=== PATIENT | female | born 1955 | race Caucasian/White ===

== ENCOUNTER 2016-10-31 14:15 | Inpatient (IN) ==
[2016-10-31] MEDS ORDERED: KLOR-CON PO PRN (15:27)
[2016-10-31] MEDS ORDERED: ALBUTEROL NEB INH PRN (15:27)
[2016-10-31] MEDS: DUONEB (A & A) INH SCH ×3 (15:34→23:28)
[2016-10-31 15:52] LABS: ALLEN TEST NO; BE 4.9 mmoll (-3.0-3.0); BLOOD TYPE ARTERIAL; DRAW SITE L BRACHIAL; METHB 1.6 % (0.0-1.5); O2(CT) 15.3 mL/dL (15.0-23.0); PCO2(98.6) 48 mmHg (35-45); PO2(98.6) 75 mmHg (60-100); SAMPLE BLOOD; SAO2 97.3 % (95.0-100.0); THB 11.6 g/dL (11.5-17.4); pH(98.6) 7.41 (7.35-7.45)
[2016-10-31 15:53] LABS: MODALITY CANNULA
--- NOTE | 2016-10-31 16:03 | Diag Imaging Result Document ---
PROCEDURE NAME: CHEST-PORTABLE - 10/31/2016 AP PORTABLE CHEST: TIME: 1520 hours. FINDINGS: There is interstitial pulmonary edema. Compared to 09/17/2016 this is worse. The inspiration is less optimal however. IMPRESSION: 1. Poor inspiration. 2. Pulmonary edema.
[2016-10-31 16:08] LABS: HEMATOCRIT 25.4 % (37.0-47.0); HEMOGLOBIN 8.2 g/dL (12.0-16.0); MCH 24.1 PG (27-31); MCHC 32.3 g/dL (33-37); MCV 74.7 FL (81-99); MPV 10.3 FL (7.4-10.4); RBC 3.4 XMIL (4.2-5.4)
[2016-10-31] MEDS ORDERED: VANCOMYCIN IV PER PHARMACY MISC SCH (16:15)
[2016-10-31 16:19] LABS: AGAP 12; ALBUMIN 3.9 g/dL (3.5-5.0); ALKALINE PHOSPHATASE 150 U/L (32-104); BUN 7 mg/dL (8-22); CALCIUM 8.4 mg/dL (8.8-10.2); CHLORIDE 97 mmol/L (98-107); CK PROFILE 109 U/L (24-173); COSMO 273; GOT 16 U/L (10-30); GPT 12 U/L (10-36); POTASSIUM 3.3 mmol/L (3.5-5.1); SODIUM 137 mmol/L (136-145); TCO2 28 mmol/L (25-35); TOTAL BILIRUBIN 0.43 mg/dL (0.20-1.00)
[2016-10-31] MEDS: PERCOCET-10 PO PRN (17:00)
[2016-10-31] MEDS ORDERED: NS + KCL 20 MEQ 1,000 ML IV SCH (17:00)
[2016-10-31] MEDS ORDERED: LEVAQUIN 750 MG/D5W 150 ML IV SCH (17:00)
[2016-10-31] MEDS: NEURONTIN PO SCH ×2 (17:01→20:46)
[2016-10-31] MEDS: LOVENOX SUBQ SCH (17:01)
--- NOTE | 2016-10-31 17:14 | Diag Imaging Result Document ---
PROCEDURE NAME: HEAD W/O CONTRAST - 10/31/2016 CT OF THE HEAD WITHOUT CONTRAST: FINDINGS: There is the appearance of edema of the sulci of the right parietal convexity, which was not the case on 11/21/2014. There is decreased attenuation of the posterior left hemisphere, which was not present previously. Same may be true on the right side. There is a history of myelogram two days ago. No evidence of bleed or mass effect is otherwise present. There is some fluid in the right mastoid air cells, which was not the case on the previous study. IMPRESSION: Intracerebral CSF contrast simulating cerebral edema. The findings were discussed with Dr. Gomez by telephone at 1658 hours. [facility]
[2016-10-31] MEDS ORDERED: LASIX IV ONE (17:41)
[2016-10-31] MEDS ORDERED: KLOR-CON PO ONE (17:45)
[2016-10-31 18:09] LABS: URINE CULTURE NEEDED? NO; URINE MICRO REVIEW NEEDED? NO; URINE SOURCE CATH
[2016-10-31 18:13] LABS: BILIRUBIN URINE NEGATIVE (NEGATIVE); BLOOD URINE NEGATIVE (NEGATIVE); COLOR YELLOW; GLUCOSE URINE NEGATIVE (NEGATIVE); LEUKOCYTES URINE NEGATIVE (NEGATIVE); NITRITE URINE NEGATIVE (NEGATIVE); PH URINE 5.5; PROTEIN URINE NEGATIVE (NEGATIVE); SP GRAVITY URINE 1.008; TURBIDITY URINE CLEAR (CLEAR); UROBILINOGEN URINE NORMAL (NORMAL)
[2016-10-31 18:14] LABS: UR EPITHELIAL CELLS <10 /HPF (<10); URINE BACTERIA NEGATIVE /HPF; URINE RBC <10 /HPF (<10); URINE WBC <10 /HPF (<10)
--- NOTE | 2016-10-31 18:45 | HISTORY AND PHYSICAL ---
CHIEF COMPLAINT: Altered mental status. HISTORY OF PRESENT ILLNESS: Ms Colin, 61-year-old white female patient, not doing well since yesterday. The patient had increasing confusion, disorientation. The patient was doing fairly well on Thursday. Patient went for myelogram. Patient tolerated procedure well. The patient came back home urinating well but yesterday patient was sleeping more. She did have increasing confusion, some disorientation. According to patient did have increasing cough, chest congestion. She does have underlying COPD. The patient was brought to my office for evaluation. The patient was not fully oriented to time, place and person. I evaluated the patient. She was more hypoxemic. Her O2 saturation was staying around 89%. With her change in mental status, increasing cough, chest congestion, shortness of breath, I decided to admit the patient for further care. The patient denied any major headache. No neck stiffness. Denied any nausea or vomiting. Does have increasing cough and chest congestion. No typical chest pain, palpitation, orthopnea or PND. Patient does have significant chronic constipation and vague abdominal pain. No diarrhea, blood, or mucus in the stool. Denied any dysuria or hematuria. The patient is very vague and poor historian. No vaginal discharge. Patient does have chronic back pain and neck pain. The patient is going to [facility] and she is on high dose of pain medication. The patient does have history of major depression and anxiety. She is seeing psychiatrist on high dose of Zoloft and Xanax. No history suggestive of accidental or intentional drug overdose. Her manages her medication. No further history available at this time. There was question about fall at home but patient denied any major head injury or loss of consciousness. ALLERGIES: CODEINE, FENTANYL AND DEMEROL. PAST MEDICAL HISTORY: COPD, chronic respiratory failure, hypothyroidism, hypertension, chronic constipation, hernia of the abdominal wall, chronic pain. Patient had pain pump placed but it is not functioning. 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 PERSONAL HISTORY: . Lives with the . Quit smoking recently. Denied alcohol or substance abuse. REVIEW OF SYSTEMS: As per HPI. Otherwise unobtainable. FAMILY HISTORY: Significant for mother of congestive heart failure. Otherwise noncontributory. REVIEW OF SYSTEMS: As per HPI. HOME MEDICATIONS: Include patient is on Synthroid, pain medication morphine, Xanax, Zoloft, Lipitor, Neurontin, hydroxyzine, Linzess, Latuda, Robaxin, Percocet, potassium, Advair. PHYSICAL EXAMINATION: GENERAL: Middle-aged white female patient, morbidly obese, in mild distress. VITAL SIGNS: Blood pressure 111/67, pulse 98, respiration 15, temperature 99 degrees. SKIN: Normal turgor. No rash or petechiae. HEENT: Head atraumatic, normocephalic. Blum conjunctivae. Anicteric sclerae. Extraocular muscle movement normal. Fundus cannot be penetrated. Good oral hygiene. No tonsillopharyngeal congestion or exudate. I cannot visualize posterior pharynx. Ears and nose benign. NECK: Supple. It is obese. Difficult to comment about lymphadenopathy or thyromegaly. LUNGS: Bibasilar crepitation, bilateral expiratory wheezing. CARDIOVASCULAR: S1 and S2 heard. No gallop or thrill. ABDOMEN: Soft, globular. Bowel sounds present. Patient does have hernia of the abdominal wall on the right upper quadrant. EXTREMITIES: No cyanosis, clubbing. No acute DVT. COFFEE HOST: Alert, awake, able to move all 4 limbs but patient does have some confusion and disorientation. DATA: Hemoglobin 8.2, hematocrit 25.4, platelet count 178,000, WBC count 9.42. D-dimer 0.23. Blood gas pH 7.41, pCO2 48, PO2 was 75. The electrolytes did reveal hypokalemia. ProBNP was 2748. Rest fairly within normal limits. CONSIDERATION: 1. Altered mental status. 2. Chronic obstructive pulmonary disease exacerbation. 3. Chronic respiratory failure. 4. Possibility of urinary tract infection cannot be ruled out. 5. Gastritis and reflux disease. 6. Hypothyroidism. 7. Chronic constipation. 8. Hyperlipidemia. PLAN: Admit patient. IV Lasix, IV steroid, pulmonary toilet, bronchodilator care. Potassium supplement. Broad-spectrum antibiotics. Septic workup. Overall plan discussed with patient and family. They are in agreement.
[2016-10-31] MEDS: ADVAIR 250/50 DISKUS INH SCH (19:36)
[2016-10-31] MEDS: LIPITOR PO SCH (20:45)
[2016-10-31] MEDS: MS CONTIN PO SCH (20:45)
[2016-10-31] MEDS: XANAX PO SCH (20:46)
[2016-10-31] MEDS: DOXYCYCLINE PO SCH (20:46)
[2016-10-31] MEDS: LATUDA PO SCH (20:46)
[2016-10-31] MEDS: HYDROXYZINE PO SCH (20:47)
[2016-10-31] MEDS: ROBAXIN PO SCH (20:47)
[2016-10-31] MEDS ORDERED: MORPHINE SULFATE PO SCH (21:00)
[2016-10-31] MEDS ORDERED: MS CONTIN PO SCH ×2 (21:00)
[2016-10-31] MEDS ORDERED: NALTREXONE PO SCH (21:00)
[2016-10-31] MEDS: SOLU-MEDROL IV SCH (22:05)
[2016-10-31] MEDS: SODIUM CHLORIDE 0.9% INJ SCH (22:06)
[2016-10-31] MEDS: ZOSYN 3.375 GM/NS 50 ML IV SCH (22:06)
[2016-10-31] MEDS: PROTONIX IV SCH (22:06)
[2016-10-31] MEDS: NS + KCL 20 MEQ 1,000 ML IV SCH (22:06)
--- NOTE | 2016-10-31 22:12 | OPERATIVE NOTE ---
PROCEDURE DATE: 10/31/2016 PROCEDURE PERFORMED: Right internal jugular vein central venous line placement under ultrasound guidance. SURGEON: Bernard Larkin MD. PREOPERATIVE DIAGNOSIS: Poor venous access. POSTOP DIAGNOSIS: Poor venous access. INDICATION: This is a 61-year-old admitted to the intensive care unit with poor venous access. He is in need of IV fluids and antibiotics and other medications. DESCRIPTION OF PROCEDURE: The patient placed in Trendelenburg position. The right side of the neck and upper anterior chest were prepped and draped in sterile fashion. We put a sterile sheath on the ultrasound, imaged the right internal jugular vein, identified it. It was compressible. We anesthetized the skin, made a small stab incision and accessed the internal jugular vein without difficulty. We then passed the guidewire without difficulty into the superior vena cava. We dilated the tract and then passed the triple-lumen catheter to 19 cm to the extent that it would go. We were able to aspirate blood from each lumen. We then infused saline in each lumen. We secured the flange to the skin with silk contained within the tray. A Biostep patch was placed at the exit site and a sterile OpSite was applied. She tolerated it well. Chest x-ray was ordered. MTDD
[2016-10-31] MEDS: VANCOMYCIN 2 GM in NS 500 ML IV SCH (22:49)
[2016-11-01] MEDS: ZOSYN 3.375 GM/NS 50 ML IV SCH ×4 (00:45→17:05)
[2016-11-01] MEDS: SOLU-MEDROL IV SCH ×3 (01:36→16:32)
[2016-11-01] MEDS: DUONEB (A & A) INH SCH ×6 (03:37→23:15)
[2016-11-01 05:56] LABS: HEMATOCRIT 24.6 % (37.0-47.0); HEMOGLOBIN 7.8 g/dL (12.0-16.0); MCH 24.2 PG (27-31); MCHC 31.7 g/dL (33-37); MCV 76.4 FL (81-99); MPV 11.4 FL (7.4-10.4); RBC 3.22 XMIL (4.2-5.4)
[2016-11-01 06:14] LABS: AGAP 12; ALBUMIN 3.7 g/dL (3.5-5.0); ALKALINE PHOSPHATASE 137 U/L (32-104); BUN 7 mg/dL (8-22); CALCIUM 8.5 mg/dL (8.8-10.2); CHLORIDE 101 mmol/L (98-107); COSMO 282; GOT 16 U/L (10-30); GPT 10 U/L (10-36); POTASSIUM 3.3 mmol/L (3.5-5.1); SODIUM 141 mmol/L (136-145); TCO2 28 mmol/L (25-35); TOTAL BILIRUBIN 0.44 mg/dL (0.20-1.00); TOTAL PROTEIN 6.4 g/dL (6.3-8.3)
[2016-11-01] MEDS: ADVAIR 250/50 DISKUS INH SCH ×2 (07:37→20:16)
[2016-11-01] MEDS: DOXYCYCLINE PO SCH (08:54)
[2016-11-01] MEDS: MOVANTIK PO SCH (08:54)
[2016-11-01] MEDS: VITAMIN D PO SCH (08:54)
[2016-11-01] MEDS: LINZESS PO SCH (08:54)
[2016-11-01] MEDS: HYDROXYZINE PO SCH ×2 (08:54→20:06)
[2016-11-01] MEDS: NEURONTIN PO SCH ×4 (08:55→20:08)
[2016-11-01] MEDS: XANAX PO SCH ×2 (08:55→20:06)
[2016-11-01] MEDS: ZOLOFT PO SCH (08:55)
[2016-11-01] MEDS: SYNTHROID PO SCH (08:55)
[2016-11-01] MEDS: ROBAXIN PO SCH ×2 (08:55→20:05)
[2016-11-01] MEDS: MS CONTIN PO SCH ×2 (08:56→20:08)
[2016-11-01] MEDS ORDERED: LASIX PO SCH (09:00)
[2016-11-01] MEDS ORDERED: PRILOSEC PO SCH (09:00)
[2016-11-01] MEDS ORDERED: NON-FORMULARY MED (Omeprazole [Prilosec] 40 MG) PO SCH (09:00)
[2016-11-01] MEDS ORDERED: KLOR-CON PO PRN (09:00)
[2016-11-01] MEDS ORDERED: BLISTEX MEDICATED BERRY LIP BALM TOP PRN (10:20)
--- NOTE | 2016-11-01 10:25 | PROGRESS NOTE ---
DATE: 11/01/2016 SUBJECTIVE: Ms. Colin is doing fair. Her mental status seems to be getting better, more clear. Patient vomited once this morning. No high-grade fever or chills. The patient does have cough and chest congestion. The patient does have chronic constipation, does have chronic pain. The patient had central line placed yesterday because IV access was a major issue. No dysuria or hematuria. The patient had López catheter. Tolerating antibiotics well. OBJECTIVE: Vital signs: Reviewed. Neck: Supple. No JVD. Lungs: Bibasilar crepitations, occasional wheezing. CVS: S1 and S2 heard. Abdomen: Soft, globular. Bowel sounds present. BINGO CLERK: Alert, awake able to move all 4 limbs. CONSIDERATIONS: 1. Chronic respiratory failure. 2. COPD exacerbation. 3. Vomiting, could be due to gastritis. I thing doxycycline could be a contributing factor. I am going to hold her doxycycline. 4. Anemia, most likely of chronic disease. I am going to check appropriate lab and stool workup and transfuse her 1 unit of packed RBC. 5. Hypothyroidism. Will check. LABORATORY AND X-RAY DATA: Lab data done today: Hemoglobin 7.8 and hematocrit 24.6. Considering her compromised cardiopulmonary status, she will benefit from blood transfusion. Potassium was 3.3. I am going to supplement potassium. Her chest x-ray results reviewed. I am going to repeat chest x-ray in the morning.
[2016-11-01 10:27] LABS: RETIC% 1.2 % (0.8-2.1); RETIC-HE 21.7 PG (28.2-36.6)
[2016-11-01 10:51] LABS: IRON SATURATION 4 %; TIBC 295 ug/dL; TOTAL IRON 11 ug/dL (49-151); UNBOUND IRON 284 ug/dL (112-346)
--- NOTE | 2016-11-01 11:13 | Diag Imaging Result Document ---
PROCEDURE NAME: CHEST-PORTABLE - 10/31/2016 PORTABLE CHEST: TIME: 1900 hours. FINDINGS: There is a right internal jugular central venous catheter with its tip in the right atrium. There is patchy alveolar opacity in the lung bases. The upper lung zones are clearer than on 10/31/2016. IMPRESSION: Slightly improved pulmonary edema.
[2016-11-01] MEDS: PERCOCET-10 PO PRN ×2 (11:41→15:42)
[2016-11-01] MEDS ORDERED: NS 250 ML ONE (11:48)
[2016-11-01] MEDS: LOVENOX SUBQ SCH (16:32)
[2016-11-01] MEDS: PROTONIX IV SCH (16:33)
[2016-11-01] MEDS: SODIUM CHLORIDE 0.9% INJ SCH (16:33)
[2016-11-01] MEDS ORDERED: KLOR-CON PO ONE (17:30)
[2016-11-01] MEDS ORDERED: LASIX IV ONE (17:31)
[2016-11-01] MEDS: LATUDA PO SCH (20:11)
[2016-11-01] MEDS: LIPITOR PO SCH (20:12)
[2016-11-01] MEDS: VANCOMYCIN 2 GM in NS 500 ML IV SCH (22:22)
[2016-11-02] MEDS: PERCOCET-10 PO PRN ×3 (00:08→19:45)
[2016-11-02] MEDS: NS + KCL 20 MEQ 1,000 ML IV SCH ×2 (00:10→23:27)
[2016-11-02] MEDS: ZOSYN 3.375 GM/NS 50 ML IV SCH ×4 (00:11→17:12)
[2016-11-02] MEDS: SOLU-MEDROL IV SCH ×3 (00:14→17:19)
[2016-11-02] MEDS: DUONEB (A & A) INH SCH ×6 (03:47→23:21)
[2016-11-02 06:15] LABS: HEMATOCRIT 25.9 % (37.0-47.0); HEMOGLOBIN 8.4 g/dL (12.0-16.0); IMM GRAN# 0.05 X1000 (0.0-0.04); IMM GRAN% 0.5 % (0.0-0.5); LYMPH# 0.47 X1000 (1.2-3.4); LYMPH% 4.7 % (20.5-51.1); MANUAL DIFF NEEDED? YES; MCH 24.5 PG (27-31); MCHC 32.4 g/dL (33-37); MCV 75.5 FL (81-99); MONO# 0.65 X1000 (0.11-0.59); MONO% 6.5 % (1.7-9.3); MPV 11.3 FL (7.4-10.4); NEUT% 88.3 % (42.2-75.2); PLT 207 X1000 (130-400); RBC 3.43 XMIL (4.2-5.4)
[2016-11-02 07:04] LABS: AGAP 15; ALBUMIN 3.5 g/dL (3.5-5.0); ALKALINE PHOSPHATASE 118 U/L (32-104); BUN 12 mg/dL (8-22); CALCIUM 8.3 mg/dL (8.8-10.2); CHLORIDE 100 mmol/L (98-107); COSMO 284; GOT 24 U/L (10-30); GPT 10 U/L (10-36); POTASSIUM 3.3 mmol/L (3.5-5.1); SODIUM 141 mmol/L (136-145); TCO2 26 mmol/L (25-35); TOTAL BILIRUBIN 0.41 mg/dL (0.20-1.00); TOTAL PROTEIN 6.2 g/dL (6.3-8.3)
[2016-11-02] MEDS: ADVAIR 250/50 DISKUS INH SCH ×2 (07:48→19:45)
--- NOTE | 2016-11-02 08:02 | Diag Imaging Result Document ---
PROCEDURE NAME: CHEST-PORTABLE - 11/02/2016 AP PORTABLE CHEST AT 0500 HOURS: COMPARISON: Compared to 10/31/2016, there is increased alveolar opacification of the right upper lobe. IMPRESSION: Pulmonary edema plus/minus pneumonia.
[2016-11-02] MEDS: LINZESS PO SCH (08:03)
[2016-11-02] MEDS: NEURONTIN PO SCH ×4 (08:03→21:29)
[2016-11-02] MEDS: VITAMIN D PO SCH (08:04)
[2016-11-02] MEDS: HYDROXYZINE PO SCH ×2 (08:04→21:27)
[2016-11-02] MEDS: ZOLOFT PO SCH (08:04)
[2016-11-02] MEDS: ROBAXIN PO SCH ×2 (08:05→21:28)
[2016-11-02] MEDS: MOVANTIK PO SCH (08:06)
[2016-11-02] MEDS: XANAX PO SCH ×3 (08:06→23:26)
[2016-11-02] MEDS: MS CONTIN PO SCH ×2 (08:06→21:29)
[2016-11-02 08:25] LABS: BANDS 4 % (0-1); LYMPHS 10 % (21-51); MONO 2 % (1-9)
[2016-11-02] MEDS ORDERED: ZOFRAN IV PRN (08:52)
[2016-11-02] MEDS ORDERED: LASIX IV ONE (11:06)
[2016-11-02] MEDS: SYNTHROID PO SCH (12:09)
[2016-11-02] MEDS: POTASSIUM CHLORIDE 20 MEQ/SWI 100 ML IV SCH ×2 (12:10→17:12)
[2016-11-02] MEDS: FOLIC ACID PO SCH (12:10)
[2016-11-02] MEDS ORDERED: NS 1,000 ML ONE (12:16)
--- NOTE | 2016-11-02 14:03 | PROGRESS NOTE ---
DATE: 11/02/2016 SUBJECTIVELY: Ms Colin is doing fair. The patient does have chest congestion and cough. No high- grade fever or chills. Tolerating oxygen well. Mental status improving. At times nausea, no vomiting. The patient does have bowel movement. Sputum grew Klebsiella. Blood culture was no growth. Her pain is under control. OBJECTIVE: Vital Signs: Noted. Neck: Supple. No JVD. The patient does have central line. Lungs: Bibasilar crepitation. Occasional wheezing. CVS: S1 and S2 heard. Abdomen: Soft, globular. Bowel sounds present. Patient does have hernia of the abdominal wall. Extremities: No cyanosis, clubbing. No acute DVT. ROASTER SUPERVISOR: Alert, awake, oriented. Mental status much improved. Able to move all 4 limbs. LAB DATA: Done today, hemoglobin 8.4, hematocrit 25.9, WBC count 10.07, platelet count 207,000. I did an anemia workup. Reticulocyte count 1.2, ferritin level was 118, folate level was 4.9, TIBC 284. I am going to supplement folic acid. Serum iron level was low. The patient does have iron-deficiency anemia. The patient claims her last colonoscopy was many years ago. Considering her compromised cardiopulmonary status, she will be benefited from 1 more unit of packed RBC. PROBLEMS: Include. 1. Chronic respiratory failure. 2. Chronic obstructive pulmonary disease exacerbation. 3. Iron-deficiency anemia. 4. Hypokalemia. I am going to check magnesium level. Supplement potassium. 5. Chronic pain. 6. Gastritis. 7. Hypothyroidism. 8. Folate deficiency. PLAN: Overall plan discussed with the patient. She is in agreement. Will transfer patient to telemetry bed. Fall precaution.
[2016-11-02] MEDS: PROTONIX IV SCH (17:12)
[2016-11-02] MEDS: SODIUM CHLORIDE 0.9% INJ SCH (17:12)
[2016-11-02] MEDS: LOVENOX SUBQ SCH (17:19)
[2016-11-02] MEDS: LATUDA PO SCH (21:28)
[2016-11-02] MEDS: LIPITOR PO SCH (21:28)
[2016-11-02] MEDS: VANCOMYCIN 2 GM in NS 500 ML IV SCH (23:26)
[2016-11-03] MEDS: ZOSYN 3.375 GM/NS 50 ML IV SCH ×4 (00:49→17:02)
[2016-11-03] MEDS: SOLU-MEDROL IV SCH ×3 (00:49→17:00)
[2016-11-03] MEDS: NS + KCL 20 MEQ 1,000 ML IV SCH ×2 (00:51→22:42)
[2016-11-03] MEDS: DUONEB (A & A) INH SCH ×6 (05:42→23:36)
[2016-11-03 06:39] LABS: MANUAL DIFF NEEDED? NO
[2016-11-03 07:10] LABS: ALBUMIN 3.5 g/dL (3.5-5.0); CALCIUM 8.4 mg/dL (8.8-10.2); TOTAL BILIRUBIN 0.24 mg/dL (0.20-1.00); TOTAL PROTEIN 6.1 g/dL (6.3-8.3)
[2016-11-03 07:15] LABS: BASO% 0.1 % (0.0-0.8); HEMATOCRIT 30.2 % (37.0-47.0); HEMOGLOBIN 9.5 g/dL (12.0-16.0); IMM GRAN# 0.12 X1000 (0.0-0.04); IMM GRAN% 1.3 % (0.0-0.5); LYMPH# 0.61 X1000 (1.2-3.4); LYMPH% 6.5 % (20.5-51.1); MCH 24.5 PG (27-31); MCHC 31.5 g/dL (33-37); MCV 77.8 FL (81-99); MONO# 0.75 X1000 (0.11-0.59); MPV 11.5 FL (7.4-10.4); NEUT% 84.1 % (42.2-75.2); PLT 201 X1000 (130-400); RBC 3.88 XMIL (4.2-5.4)
[2016-11-03] MEDS: ADVAIR 250/50 DISKUS INH SCH ×2 (07:32→20:08)
--- NOTE | 2016-11-03 07:40 | EKG Report ---
Test Performed on : 10/31/2016 4:58:10 PM Test Reason : sob Blood Pressure : / mmHG Vent. Rate : 099 BPM Atrial Rate : 099 BPM P-R Int : 150 ms QRS Dur : 086 ms QT Int : 338 ms P-R-T Axes : 032 -21 023 degrees QTc Int : 433 ms Normal sinus rhythm. Possible Anterior infarct , age undetermined Abnormal ECG When compared with ECG of 03-APR-2016 01:36, Borderline criteria for Anterior infarct are now present Confirmed by Vinay Moreau MD ([id number]) on 11/04/2016 8:35:01 AM
[2016-11-03] MEDS: ROBAXIN PO SCH ×2 (09:04→21:04)
[2016-11-03] MEDS: LINZESS PO SCH (09:05)
[2016-11-03] MEDS: MOVANTIK PO SCH (09:05)
[2016-11-03] MEDS: SYNTHROID PO SCH (09:06)
[2016-11-03] MEDS: XANAX PO SCH ×3 (09:06→22:39)
[2016-11-03] MEDS: VITAMIN D PO SCH (09:06)
[2016-11-03] MEDS: ZOLOFT PO SCH (09:06)
[2016-11-03] MEDS: MS CONTIN PO SCH ×2 (09:07→21:03)
[2016-11-03] MEDS: NEURONTIN PO SCH ×4 (09:07→21:04)
[2016-11-03] MEDS: FOLIC ACID PO SCH (09:07)
[2016-11-03] MEDS: HYDROXYZINE PO SCH ×2 (09:08→21:04)
--- NOTE | 2016-11-03 11:20 | PROGRESS NOTE ---
DATE: 11/03/2016 SUBJECTIVE: Ms. Colin states she is feeling better. She has Klebsiella isolated from the sputum. Has right upper lobe pneumonia. Actually, the x-ray showed that it was a little worse. She is on IV vancomycin and Zosyn. OBJECTIVE: Vital Signs: Her vital signs are stable. Lungs: Lungs sound about the same, probably she does have some significant congestion in the right upper lobe. We will continue with the current management on her. She herself is feeling better. We will ask physical therapy to help her some. -4
[2016-11-03] MEDS: PERCOCET-10 PO PRN ×2 (13:09→22:48)
[2016-11-03] MEDS: PROTONIX IV SCH (17:00)
[2016-11-03] MEDS: LOVENOX SUBQ SCH (17:00)
[2016-11-03] MEDS: SODIUM CHLORIDE 0.9% INJ SCH (17:00)
[2016-11-03] MEDS: LIPITOR PO SCH (21:04)
[2016-11-03] MEDS: LATUDA PO SCH (21:05)
[2016-11-03] MEDS: VANCOMYCIN 2 GM in NS 500 ML IV SCH (22:39)
[2016-11-04] MEDS: SOLU-MEDROL IV SCH (01:26)
[2016-11-04] MEDS: ZOSYN 3.375 GM/NS 50 ML IV SCH ×4 (03:36→21:16)
[2016-11-04] MEDS: DUONEB (A & A) INH SCH ×6 (03:58→23:04)
[2016-11-04] MEDS: ADVAIR 250/50 DISKUS INH SCH ×2 (07:23→19:29)
--- NOTE | 2016-11-04 07:23 | PROGRESS NOTE ---
DATE: 11/04/2016 SUBJECTIVE: Ms. Colin is feeling better. She still has cough and chest congestion. No high- grade fever or chills. Shortness of breath better. Mental status improved. Denied nausea and vomiting, improving. The patient received 2 units of packed RBC. The patient claims she had endoscopy done about 3 years ago. She does not remember the results. We are going to get those results. OBJECTIVE: Vital signs: Reviewed. Patient is afebrile. Neck: Supple. Lungs: Bibasilar crepitations, occasional wheezing. CVS: S1 and S2 heard. Abdomen: Soft, globular. Bowel sounds present. WOOD CAR BUILDER: The patient does have hernia of the abdominal wall. Extremities: No cyanosis, clubbing. No acute DVT. WOOD CAR BUILDER: Alert, awake able to move all 4 limbs. CONSIDERATION: 1. COPD exacerbation. 2. Right upper lobe pneumonia due to Klebsiella. 3. Hypothyroidism. 4. Chronic blood loss anemia. 5. Hyperlipidemia. 6. Chronic constipation. 7. Iron-deficiency anemia. PLAN: I am going to check appropriate labs. The patient does have chronic constipation. I do not think she will tolerate p.o. iron well. We will get Hematology consult for IV iron treatment. Change her Solu-Medrol to p.o. prednisone. Continue physical therapy. Will plan to discharge her tomorrow. Overall plan discussed with the patient and she is in agreement.
[2016-11-04] MEDS: VITAMIN D PO SCH ×2 (07:51→08:01)
[2016-11-04] MEDS: MS CONTIN PO SCH ×3 (07:51→21:15)
[2016-11-04] MEDS: MOVANTIK PO SCH ×2 (07:51→08:01)
[2016-11-04] MEDS: ZOLOFT PO SCH ×2 (07:52→08:01)
[2016-11-04] MEDS: ROBAXIN PO SCH ×3 (07:52→21:15)
[2016-11-04] MEDS: LINZESS PO SCH ×2 (07:52→08:00)
[2016-11-04] MEDS: XANAX PO SCH ×4 (07:52→23:42)
[2016-11-04] MEDS: FOLIC ACID PO SCH ×2 (07:52→08:00)
[2016-11-04] MEDS: HYDROXYZINE PO SCH ×3 (07:53→21:15)
[2016-11-04] MEDS: NEURONTIN PO SCH ×5 (07:53→21:16)
[2016-11-04] MEDS: SYNTHROID PO SCH ×2 (07:53→08:01)
[2016-11-04] MEDS: LASIX PO SCH ×2 (07:56→08:00)
[2016-11-04] MEDS: PREDNISONE PO SCH ×2 (07:56→08:01)
[2016-11-04] MEDS: PERCOCET-10 PO PRN ×3 (13:00→23:49)
--- NOTE | 2016-11-04 15:28 | CONSULTATION ---
DATE OF CONSULTATION: 11/04/2016 REASON FOR CONSULTATION: Consultation is for anemia. CONSULTATION REQUESTED BY: Samson Gomez MD. HISTORY OF PRESENT ILLNESS: Ms. Colin is a pleasant, 61-year-old, female, who initially presented with altered mental status. She was found to have COPD exacerbation and possible sepsis. She was admitted to the hospital for further evaluation and treatment. During her hospital stay, the patient has required 2 units of packed red blood cells. We are here now for followup regarding her anemia. She does appear to be iron deficient and has occult blood that is positive stool. The patient feels well at this time. She has previously been on oral iron, but is unable to tolerate secondary to significant constipation. Her COPD exacerbation is much better at this point. PAST MEDICAL HISTORY: 1. COPD. 2. Chronic respiratory failure. 3. Hypothyroidism. 4. Hypertension. 5. GERD. 6. Chronic pain. 7. Fibromyalgia. 8. Neuropathy. PAST SURGICAL HISTORY: 1. Traumatic amputation of left great toe. 2. Cholecystectomy. 3. Left arm surgery. 4. Hysterectomy. 5. Appendectomy. 6. Back surgery. 7. Previous pain pump, implanted with subsequent rupture of the pain pump and is no longer functional. SOCIAL HISTORY: The patient is and lives with her . She denies any alcohol or drugs or current tobacco use. REVIEW OF SYSTEMS: As per HPI. All else is negative and noncontributory. PHYSICAL EXAMINATION: Vital Signs: Temperature is 98.2, heart rate 82, respirations 17, blood pressure 151/78, O2 saturation 93% on 2 L nasal cannula. HEENT: Head normocephalic, atraumatic. Eyes: Pupils equal, round, reactive. Ears, nose, throat, neck and mouth: Oral mucosa appears to be normal. She does have some on both sides of her mouth. Trachea is midline. Gross auditory acuity is intact. Cardiovascular: S1-S2 heard without murmurs, gallops, rubs appreciated. Regular rate and rhythm. Respiratory: Essentially clear to auscultation bilaterally. No wheezing. Coarse breath sounds bilaterally. Gastrointestinal: Abdomen is soft and nondistended. Positive bowel sounds. Obese. 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 She has no other obvious bony abnormalities. Extremities: Bilateral lower extremities are without edema. Neurologic: Patient is alert and oriented x3. There are no focal motor deficits. She does report having right foot drop, however, she was not evaluated in regards to her gait. LABS AND STUDIES: From 11/03/2016. White blood cells 9.37, hemoglobin 9.5, hematocrit 30.2, platelets 201. Sodium 142, potassium 4.0, chloride 103, CO2 of 25, BUN 19, creatinine 1.1. Glucose 124, alkaline phosphatase is 107. Iron 11, saturation percent is 4. Ferritin is 118. Folate is 4.9, occult blood in stool is positive. Reticulocytes 21.7. ASSESSMENT AND PLAN: 1. Anemia. Status post 2 units of packed red blood cells. She has now been started on folic acid, which will continue. Check a myeloma panel as well as vitamin B12. Hemoccult stool is positive, so it may be reasonable for GI workup if it has not been done recently. The patient can follow up with us outpatient and will continue to give her IV iron as needed. With 2 units of packed red blood cells, the patient has received about 500 mg of iron. 2. Chronic obstructive pulmonary disease exacerbation. Better. Continue current management. 3. Chronic pain. Will control with current medications. 4. Anxiety and depression. Currently well controlled. Thank you for this consult and allowing us to participate in Ms. Colin's care while she is at [facility]. We will continue following along with you and adjust plan per hospital course. Dictated by RICKIE Black for Poly Pang MD
[2016-11-04] MEDS: LOVENOX SUBQ SCH (16:04)
[2016-11-04] MEDS: PROTONIX IV SCH (16:04)
[2016-11-04] MEDS: SODIUM CHLORIDE 0.9% INJ SCH (16:04)
[2016-11-04] MEDS: LATUDA PO SCH (21:16)
[2016-11-04] MEDS: LIPITOR PO SCH (21:16)
[2016-11-04] MEDS: VANCOMYCIN 2 GM in NS 500 ML IV SCH (23:43)
[2016-11-05] MEDS: ZOSYN 3.375 GM/NS 50 ML IV SCH ×4 (02:53→20:10)
[2016-11-05] MEDS: DUONEB (A & A) INH SCH ×6 (03:26→23:51)
[2016-11-05] MEDS: PERCOCET-10 PO PRN ×3 (05:15→21:41)
[2016-11-05 06:22] LABS: BASO% 0.4 % (0.0-0.8); EOS# 0.18 X1000 (0.0-0.7); EOS% 1.6 % (0.0-10.0); HEMATOCRIT 29.6 % (37.0-47.0); HEMOGLOBIN 9.6 g/dL (12.0-16.0); IMM GRAN# 0.96 X1000 (0.0-0.04); IMM GRAN% 8.7 % (0.0-0.5); LYMPH# 1.66 X1000 (1.2-3.4); LYMPH% 15.1 % (20.5-51.1); MANUAL DIFF NEEDED? YES; MCH 24.8 PG (27-31); MCHC 32.4 g/dL (33-37); MCV 76.5 FL (81-99); MONO# 0.94 X1000 (0.11-0.59); MONO% 8.5 % (1.7-9.3); MPV 10.1 FL (7.4-10.4); NEUT% 65.7 % (42.2-75.2); PLT 195 X1000 (130-400); RBC 3.87 XMIL (4.2-5.4)
[2016-11-05 06:48] LABS: EOS 2 % (1-10); LYMPHS 20 % (21-51); MONO 4 % (1-9)
[2016-11-05 07:10] LABS: ALBUMIN 3.3 g/dL (3.5-5.0); CALCIUM 8.1 mg/dL (8.8-10.2); MAGNESIUM 1.7 mg/dL (1.5-2.7); POTASSIUM 3.2 mmol/L (3.5-5.1); TOTAL BILIRUBIN 0.39 mg/dL (0.20-1.00); TOTAL PROTEIN 5.6 g/dL (6.3-8.3)
[2016-11-05] MEDS: ADVAIR 250/50 DISKUS INH SCH ×2 (07:28→19:16)
[2016-11-05] MEDS: XANAX PO SCH ×3 (07:30→22:37)
--- NOTE | 2016-11-05 07:42 | PROGRESS NOTE ---
DATE: 11/05/2016 SUBJECTIVE: Ms. Colin is doing better. Her chest congestion and cough are improving. Shortness of breath is better. She is going to the bathroom with assistance. No nausea or vomiting. OBJECTIVE: Vital signs: Reviewed. Lungs: Bilateral good air entry present. Few basal crepitations. CVS: S1 and S2 heard. Abdomen: Soft, globular. Bowel sounds present. CONSTRUCTION EQUIPMENT MECHANIC HELPER: Alert, awake. Able to move all 4 limbs. LABORATORY: The patient's CBC results reviewed. CONSIDERATIONS: 1. Chronic obstructive pulmonary disease exacerbation. 2. Pneumonia. I am going to get a followup chest x-ray. 3. Iron-deficiency anemia status post blood transfusion. Hematology/oncology recommendations noted. 4. Morbid obesity. 5. Chronic constipation. PLAN: I am going to check today's labs and chest x-ray result. If clinical condition permits plan is to discharge patient home this afternoon.
--- NOTE | 2016-11-05 09:46 | Diag Imaging Result Document ---
PROCEDURE NAME: CHEST-PORTABLE - 11/05/2016 SINGLE FRONTAL RADIOGRAPH OF THE CHEST: COMPARISON: 11/02/2016. FINDINGS: Right central catheter is in stable position. There had been overall worsening of consolidation bilaterally, especially at the right upper lobe. Inspiration is suboptimal. Pulmonary vasculature is somewhat prominent suggesting some degree of pulmonary venous congestion. Cardiac silhouette is stable. IMPRESSION: Interval worsening of bilateral consolidations, especially at the right upper lobe.
[2016-11-05] MEDS: MS CONTIN PO SCH ×2 (11:11→20:11)
[2016-11-05] MEDS: FOLIC ACID PO SCH (11:12)
[2016-11-05] MEDS: NEURONTIN PO SCH ×4 (11:12→20:10)
[2016-11-05] MEDS: LINZESS PO SCH (11:13)
[2016-11-05] MEDS: HYDROXYZINE PO SCH ×2 (11:13→20:10)
[2016-11-05] MEDS: LASIX PO SCH (11:13)
[2016-11-05] MEDS: MOVANTIK PO SCH (11:14)
[2016-11-05] MEDS: PREDNISONE PO SCH (11:15)
[2016-11-05] MEDS: ROBAXIN PO SCH ×2 (11:15→20:10)
[2016-11-05] MEDS: ZOLOFT PO SCH (11:16)
[2016-11-05] MEDS: VITAMIN D PO SCH (11:16)
[2016-11-05] MEDS: SYNTHROID PO SCH (11:16)
[2016-11-05] MEDS ORDERED: KLOR-CON PO ONE (15:23)
[2016-11-05] MEDS ORDERED: LASIX IV ONE (15:27)
[2016-11-05] MEDS: PROTONIX IV SCH (16:56)
[2016-11-05] MEDS: SODIUM CHLORIDE 0.9% INJ SCH (16:56)
[2016-11-05] MEDS: LOVENOX SUBQ SCH (16:56)
[2016-11-05] MEDS: MUCOMYST 20% INH SCH (19:16)
[2016-11-05] MEDS: LIPITOR PO SCH (20:09)
[2016-11-05] MEDS: LATUDA PO SCH (20:10)
[2016-11-05] MEDS: VANCOMYCIN 2 GM in NS 500 ML IV SCH (22:37)
[2016-11-06] MEDS: ZOSYN 3.375 GM/NS 50 ML IV SCH ×4 (03:02→20:03)
[2016-11-06] MEDS: DUONEB (A & A) INH SCH ×6 (03:21→22:53)
[2016-11-06] MEDS: PERCOCET-10 PO PRN ×3 (03:42→22:38)
--- NOTE | 2016-11-06 07:31 | PROGRESS NOTE ---
DATE: 11/06/2016 SUBJECTIVE: Ms. Colin is doing better. The patient does have cough with expectoration. No high- grade fever or chills. No nausea or vomiting. Her chest x-ray done yesterday did show worsening consolidation and I decided to continue IV antibiotics for a few more days. The patient was upset and crying, I offered her if she wants to leave she can leave against medical advice, but it will not be in her best interest. She denied any diarrhea. OBJECTIVE: Vital Signs: Noted. Neck: Supple. No JVD. Lungs: Bilateral good air entry present. CVS: S1 and S2 heard. Abdomen: Soft, globular. Bowel sounds present. WELL FLOW OPERATOR: Alert, awake. Able to move all 4 limbs. LAB DATA: Done did reveal mild hypokalemia. The patient is on potassium supplement. The patient does have bilateral upper lobe pneumonia. The patient is on good antibiotics. Will continue. Her sputum grew Klebsiella which was ESBL negative. Patient is on Zosyn. PROBLEM LIST: 1. [id number] respiratory failure. 2. Bilateral upper lobe pneumonia. 3. Gastritis and reflux disease. 4. Chronic obstructive pulmonary disease. 5. Chronic pain. PLAN: Overall plan discussed with the patient and her . They are in agreement.
[2016-11-06] MEDS: ADVAIR 250/50 DISKUS INH SCH ×2 (07:37→19:15)
[2016-11-06] MEDS: XANAX PO SCH ×3 (07:46→22:39)
[2016-11-06] MEDS: MS CONTIN PO SCH ×2 (09:53→20:10)
[2016-11-06] MEDS: HYDROXYZINE PO SCH ×2 (09:54→20:04)
[2016-11-06] MEDS: MOVANTIK PO SCH (09:54)
[2016-11-06] MEDS: FOLIC ACID PO SCH (09:54)
[2016-11-06] MEDS: LINZESS PO SCH (09:54)
[2016-11-06] MEDS: LASIX PO SCH (09:54)
[2016-11-06] MEDS: ROBAXIN PO SCH ×2 (09:55→20:03)
[2016-11-06] MEDS: PREDNISONE PO SCH (09:55)
[2016-11-06] MEDS: NEURONTIN PO SCH ×4 (09:55→20:04)
[2016-11-06] MEDS: ZOLOFT PO SCH (09:56)
[2016-11-06] MEDS: SYNTHROID PO SCH (09:56)
[2016-11-06] MEDS: VITAMIN D PO SCH (09:56)
[2016-11-06] MEDS: MUCOMYST 20% INH SCH ×2 (10:56→19:15)
[2016-11-06] MEDS: PROTONIX IV SCH (16:27)
[2016-11-06] MEDS: LOVENOX SUBQ SCH (16:28)
[2016-11-06] MEDS: SODIUM CHLORIDE 0.9% INJ SCH (19:18)
[2016-11-06] MEDS: LATUDA PO SCH (20:04)
[2016-11-06] MEDS: LIPITOR PO SCH (20:04)
[2016-11-06] MEDS: VANCOMYCIN 2 GM in NS 500 ML IV SCH (22:39)
[2016-11-07] MEDS: ZOSYN 3.375 GM/NS 50 ML IV SCH ×2 (03:12→08:47)
[2016-11-07] MEDS: PERCOCET-10 PO PRN ×2 (03:41→07:46)
[2016-11-07] MEDS: DUONEB (A & A) INH SCH ×2 (03:50→07:25)
[2016-11-07] MEDS: MUCOMYST 20% INH SCH (07:25)
[2016-11-07] MEDS: XANAX PO SCH (07:47)
[2016-11-07 07:48] VITALS: BP 147/77
[2016-11-07] MEDS: MS CONTIN PO SCH (10:01)
[2016-11-07] MEDS: HYDROXYZINE PO SCH (10:02)
[2016-11-07] MEDS: LINZESS PO SCH (10:02)
[2016-11-07] MEDS: NEURONTIN PO SCH (10:02)
[2016-11-07] MEDS: MOVANTIK PO SCH (10:02)
[2016-11-07] MEDS: LASIX PO SCH (10:02)
[2016-11-07] MEDS: FOLIC ACID PO SCH (10:02)
[2016-11-07] MEDS: ROBAXIN PO SCH (10:03)
[2016-11-07] MEDS: PREDNISONE PO SCH (10:03)
[2016-11-07] MEDS: ZOLOFT PO SCH (10:04)
[2016-11-07] MEDS: VITAMIN D PO SCH (10:04)
[2016-11-07] MEDS: SYNTHROID PO SCH (10:04)
--- NOTE | 2016-11-14 04:54 | DISCHARGE SUMMARY ---
ADMISSION DATE: 10/31/2016 DISCHARGE DATE: 11/07/2016 FINAL DISCHARGE DIAGNOSIS: 1. Bilateral upper lobe pneumonia. 2. Chronic respiratory failure. 3. Chronic obstructive pulmonary disease exacerbation. 4. Morbid obesity. 5. Gastritis and reflux disease. 6. Chronic pain. 7. Chronic constipation. 8. Hernia of the abdominal wall. 9. Iron-deficiency anemia, requiring blood transfusion. 10. Hypothyroidism. Ms. Franci Colin is a 61-year-old white female patient admitted with altered mental status, confusion, disorientation, some chills, increasing shortness of breath, and cough. I evaluated patient in my office and admitted her for further care. The patient had history of chronic respiratory failure. Initially, I admitted the patient to ICU for close monitoring. The patient was admitted to ICU. She was started on oxygen, IV antibiotics, symptomatic treatment, and IV steroid. Her clinical condition gradually improved. The patient had a very difficult IV access. She required central line. Her clinical condition gradually improved. She was transferred to the floor. Her hemoglobin was low. The patient had compromise cardiopulmonary status. I transfused 2 units of packed RBC. Her anemia profile more suggestive of iron deficiency anemia. Hematology consult done with Dr. Pang and recommendation noted. Her repeat chest x-ray did reveal bilateral upper lobe pneumonia. Her mental status improved. The patient was eager to go home and I discharged her home on November 07 in stable condition. PHYSICAL EXAMINATION: Vital Signs: Her vital signs were stable. Lungs: With bibasilar crepitation. Cardiovascular: S1 and S2 heard. Abdomen: Soft, globular. Bowel sounds present. The patient did have hernia of the abdominal wall. ONLINE TRADER: Alert, awake, able to move all 4 limbs. LAB DATA: Last hemoglobin 9.6, hematocrit 29.6. WBC count 11.01. Platelet 195,000. D-dimer was 0.23. Initial blood gas pH 7.41, pCO2 48, pO2 was 75. O2 saturation was 97.3. This was done on 2 L via nasal cannula. Her last potassium was 3.2. BUN was 15, creatinine was 1. Patient had myeloma workup done. Dr. Pang is going to follow up patient. Last magnesium was 1.7. Vitamin B12 1032. Serum protein electrophoresis results reviewed. Advised patient to have follow up with patrol community service officer. Follow up with me in a week. I am going to repeat chest x-ray as an outpatient. The patient will go home on steroids in tapering dose, oral antibiotics. Continue home oxygen and bronchodilator treatment. In case of more distress, call us back or go to the emergency room.
== END 2016-11-07 10:25 | disposition home or self-care (01) | DRG 190 ==
LOC: DIRADM 14:15 → ICU 14:44 → 3N 11-02 13:33
PROVIDERS: ADMIT Internal Medicine; ATTEND Internal Medicine
PROC: 02HV33Z Insertion of Infusion Device into Superior Vena Cava, Percutaneous Approach (ICD-10-PCS; principal; 2016-10-31)
PROC: B548ZZA Ultrasonography of Superior Vena Cava, Guidance (ICD-10-PCS; 2016-10-31)
PROC: 30233N1 Transfusion of Nonautologous Red Blood Cells into Peripheral Vein, Percutaneous Approach (ICD-10-PCS; 2016-11-01)
DX: J44.0 Chronic obstructive pulmonary disease with (acute) lower respiratory infection (principal); J15.0 Pneumonia due to Klebsiella pneumoniae; J96.10 Chronic respiratory failure, unspecified whether with hypoxia or hypercapnia; J44.1 Chronic obstructive pulmonary disease with (acute) exacerbation; E66.01 Morbid (severe) obesity due to excess calories; G62.9 Polyneuropathy, unspecified; E87.6 Hypokalemia; D63.8 Anemia in other chronic diseases classified elsewhere; E78.5 Hyperlipidemia, unspecified; E03.9 Hypothyroidism, unspecified; D50.0 Iron deficiency anemia secondary to blood loss (chronic); I10 Essential (primary) hypertension; R19.5 Other fecal abnormalities; E53.8 Deficiency of other specified B group vitamins; K43.9 Ventral hernia without obstruction or gangrene; M79.7 Fibromyalgia; K29.70 Gastritis, unspecified, without bleeding; K21.9 Gastro-esophageal reflux disease without esophagitis; K59.09 Other constipation; F41.9 Anxiety disorder, unspecified; F32.9 Major depressive disorder, single episode, unspecified; Z79.899 Other long term (current) drug therapy; Z68.36 Body mass index [BMI] 36.0-36.9, adult
CPT/HCPCS: 70450; 71010; 80053; 80202; 81001; 82232; 82272; 82550; 82607; 82728; 82746; 82784; 82805; 83540; 83550; 83735; 83880; 83883; 84155; 84165; 84484; 85025; 85027; 85045; 85379; 86334; 86850; 86900; 86901; 86920; 87040; 87070; 87077; 87186; 87205; 93005; 93010; 94640; 94761; C9113; J1650; J1940; J2405; J2543; J2920; J2930; J3370; J3480; J7030; J7040; J7050; J7512; P9016; 97001-GP; 97116-GP; 97530-GP; S0164

== ENCOUNTER 2017-01-05 12:07 | Inpatient (IN) ==
[2017-01-05] MEDS ORDERED: CARDIZEM 100 MG/NS 100 ML ONE (12:17)
[2017-01-05] MEDS ORDERED: CARDIZEM ONE (12:17)
[2017-01-05] MEDS ORDERED: ASPIRIN ONE (12:22)
[2017-01-05] MEDS ORDERED: NS 1,000 ML ONE (12:23)
[2017-01-05] MEDS ORDERED: NS 1,000 ML IV ONE (12:30)
[2017-01-05] MEDS ORDERED: ASPIRIN PO STA (12:30)
[2017-01-05] MEDS ORDERED: CARDIZEM IV ONE (12:30)
[2017-01-05] MEDS: CARDIZEM 100 MG/NS 100 ML IV SCH ×2 (12:45→12:55)
--- NOTE | 2017-01-05 12:46 | PROVIDER DOCUMENTATION ---
HPI-Respiratory General - General Source: patient - History of Present Illness-Resp Quality of Pain: reports: tightness Severity in ED: reports: moderate, severe Onset/Duration: reports: gradual, last night Timing: reports: still present, getting worse Context: denies: recent URI, out of meds Cough Quality/Degree: reports: no cough Episode Frequency: occasional episodes Current Respiratory Medication Therapy: Initiated see nurses note Modifying Factors: worse with: exertion, lying down Associated Symptoms: reports: chest pain/soreness, shortness of breath, short of breath. denies: fever/chills, flu-like symptoms, nasal congestion, nasal drainage, sore throat, wheezing Similar Symptoms Previously?: No Recently seen or treated by another doctor?: No <Kevin Leslie - Last Filed: 01/05/17 14:16> <Marylu Jimenes - Last Filed: 01/05/17 14:33> - General Chief Complaint: Shortness of Breath Stated Complaint: sob, o/s last night Time Seen by Provider: 01/05/17 12:09 Allergies/Adverse Reactions: Patient Allergies Allergy/AdvReac Type Severity Reaction Status Date / Time codeine Allergy Unknown Unknown Verified 01/08/15 10:38 fentanyl Allergy Unknown Unknown Verified 01/08/15 10:38 meperidine HCl * Allergy Unknown Unknown Verified 01/08/15 10:38 [From Demerol] Home Medications: Home Medication List Medication Instructions Recorded Confirmed Last Taken Type Alprazolam [Xanax] 0.25 mg PO BID 04/02/16 01/05/17 10/31/16 History Atorvastatin Calcium [Lipitor] 20 mg PO QHS 04/02/16 01/05/17 10/30/16 History Fluticasone/Salmeterol [Advair 1 puff INH BID 04/02/16 01/05/17 10/31/16 History 250-50 Diskus] Furosemide [Lasix] 40 mg PO DAILY 04/02/16 01/05/17 10/31/16 History Levothyroxine [Synthroid] 75 mcg PO DAILY 04/02/16 01/05/17 10/31/16 History Methocarbamol [Robaxin-750] 750 mg PO BID 04/02/16 01/05/17 Unknown History Naloxegol Oxalate [Movantik] 25 mg PO DAILY 04/02/16 01/05/17 10/31/16 History Omeprazole [Prilosec] 20 mg PO DAILY 04/02/16 01/05/17 04/02/16 History Oxycodone HCl/Acetaminophen 10 mg PO 4XDAY PRN PRN 04/02/16 01/05/17 04/02/16 20 :00 History [Percocet 10-325 mg Tablet] Sertraline HCl [Zoloft] 250 mg PO DAILY 04/02/16 01/05/17 10/31/16 History Vit D3-Vit K/Berberine/Hops 1 tab PO DAILY 04/02/16 01/05/17 10/31/16 History [Ostera Tablet] Gabapentin [Neurontin] 100 mg PO 4XDAY 10/31/16 01/05/17 10/31/16 History Hydroxyzine Pamoate [Vistaril] 25 mg PO BID 10/31/16 01/05/17 10/31/16 History Morphine Sulfate/Naltrexone 1 each PO BID 10/31/16 01/05/17 10/31/16 History [Embeda ER 60-2.4 mg Capsule] Amoxicillin/Pot Clavulanate 875 mg PO Q12HR #14 tablet 11/07/16 01/05/17 Unknown Rx [Augmentin] Dimethicone/Oxybenzone [place] 1 gm TOP PRN PRN #0 stick 11/07/16 01/05/17 Unknown Rx [Blistex Medicated [place] Lip [place]] Folic Acid 1 mg PO DAILY #0 tablet 11/07/16 01/05/17 Unknown Rx Potassium Chloride E.r. [Klor-Con] 20 meq PO BID #30 tablet 11/07/16 01/05/17 Rx Albuterol 2.5MG/Ipratrop 0.5MG 1 inh INH Q6HR 01/05/17 01/05/17 Unknown History [Duoneb (A & A)] Aspirin [Aspirin EC] 1 tab PO DAILY 01/05/17 01/05/17 Unknown History Fluticasone/Salmeterol [Advair 1 inh INH BID 01/05/17 01/05/17 Unknown History 250-50 Diskus] Metoprolol Succinate E.r. [Toprol 1 tab PO DAILY 01/05/17 01/05/17 Unknown History Xl] Tizanidine HCl [Zanaflex] 2 tab PO TID 01/05/17 01/05/17 Unknown History Venlafaxine E.r. [Effexor Xr] 1 cap PO DAILY 01/05/17 01/05/17 Unknown History - History of Present Illness-Resp Nature of Presenting Problem: patient is a 61 y/o F that presents to the ER with shortness of breath and chest pain since last pm. Patient was picked up by EMS who found her o2 saturation was 48%. Patient denies fever/chills, cough, or n/v. history of COPD (Kevin Leslie) Review of Systems - Adult - REVIEW OF SYSTEMS - ADULT Constitutional: denies: chills, fever Eyes: reports: no symptoms reported Ears, Nose, Mouth & Throat: reports: no symptoms reported Cardiovascular: reports: chest pain, palpitations Respiratory: reports: shortness of breath. denies: cough, pleurisy, wheezing Gastrointestinal: denies: abdominal pain, diarrhea, nausea, vomiting Genitourinary: reports: no symptoms reported Musculoskeletal: denies: back pain, joint pain, neck pain Integumentary: reports: no symptoms reported Neurological: denies: dizziness/vertigo, headache/migraines, seizure, syncope Psychiatric: reports: no symptoms reported Endocrine: reports: no symptoms reported Hematologic/Lymphatic: reports: no symptoms reported Allergic/Immunologic: reports: no symptoms reported All Other Systems: Reviewed and Negative <Kevin Leslie - Last Filed: 01/05/17 14:16> Past History - Adult - PAST MEDICAL HISTORY-ADULT Review of Records: reports: Old Records Reviewed, Nursing Assessment Review, Medications Reviewed Cardiovascular: reports: hyperlipidemia Respiratory: reports: COPD Musculoskeletal: reports: arthritis, chronic pain, intervertebral disc disease, neck/back injury, other fractures, orthopedic injury, osteoporosis, spinal fracture Endocrine/Immune: reports: thyroid disorder - PRIOR SURGERIES/PROCEDURES Surgical/Procedure History: reports: bowel surgery, orthopedic (extremity), back /neck - IMMUNIZATION STATUS Childhood Immunizations: See Nurse Assessment Flu Vaccine: See Nurse Assessment - FAMILY HISTORY Family History: reviewed, not pertinent - SOCIAL HISTORY Smoking: quit greater than 1 year, cigarettes Living Situation: family <Kevin Leslie - Last Filed: 01/05/17 14:16> Physical Exam-General - PHYSICAL EXAM-ADULT Initial Vital Signs Reviewed: Yes - CONSTITUTIONAL General Appearance: alert, moderate distress, anxious - EYES Eyes: PERRL/EOMI, pink conjunctivae - HEAD, EARS, NOSE, MOUTH & THROAT HENMT: normocephalic/atraumatic, normal ENT inspection, other (dry mucus membranes) - NECK Neck: full range of motion, normal inspection. negative: lymphadenopathy - RESPIRATORY Respiratory: lungs clear, normal breath sounds, respiratory distress (moderate) , increased rate. negative: decreased breath sounds - CARDIOVASCULAR Cardiovascular: no murmur, irregularly irregular (176) - GASTROINTESTINAL (ABDOMEN) Abdominal Exam: normal bowel sounds, non tender, soft, no organomegaly, no pulsatile mass - MUSCULOSKELETAL Extremity: normal capillary refill, pelvis stable, swelling (right lower leg) - SKIN Integumentary: normal color, warm/dry - NEUROLOGIC Neurologic: grossly normal, no motor/sensory deficits - PSYCHIATRIC Psych/Mental Status: oriented x 3, anxious <Kvein Leslie - Last Filed: 01/05/17 14:16> Progress - EKG 1 Time of EKG reading by physician:: 12:12 EKG Read and Signed by:: Marylu Jimenes EKG Interpretation (*Must complete 3 of following elements*): Abnormal Rate: 152 Rhythm: a-fib with rvr QRS: RBB ST Wave: normal - XRAY 1 XRAY Study: Chest Impression: Abnormal XRAY Interpretation: pulmonary edema bilaterally - CONSULTS/PCP/HOSPITALIST Notification #1 *Consult/PCP/Hospitalist*: Time Discussed: 14:12 Reason/Comments: will placed bridge orders, respiratory distress, heart failure Consult Disposition: Admit <Kevin Leslie - Last Filed: 01/05/17 14:16> - REASSESSMENT Reassessment #1 Time Reassessed: 14:29 Status: improving (Pt has been awake and alert with talking full sentenses. Pt' s IVF was diacontinued and Lasix given after CXR done and BNP resulted. Reports feeling better after BiPAP. Admit to Dr. Gomez.) <Marylu Jimenes - Last Filed: 01/05/17 14:33> - PLAN OF CARE/RESULTS Progress/Plan/Lab Results: plan of care-labs, meds, cxr, ekg 1400-patient o2 saturation hasn't improved on 15lpm NRB, ordered lasix and start CXR, will be paged Vital Signs Temp Pulse Resp BP Pulse Ox 01/05/17 12:27 97.8 F 176 H 32 H 121/78 100 codeine Allergy (Unknown, Verified 01/08/15 10:38) Unknown fentanyl Allergy (Unknown, Verified 01/08/15 10:38) Unknown meperidine HCl * [From Demerol] Allergy (Unknown, Verified 01/08/15 10:38) Unknown Alprazolam [Xanax] 0.25 mg PO BID 04/02/16 Atorvastatin Calcium [Lipitor] 20 mg PO QHS 04/02/16 Fluticasone/Salmeterol [Advair 250-50 Diskus] 1 puff INH BID 04/02/16 Furosemide [Lasix] 40 mg PO DAILY 04/02/16 Levothyroxine [Synthroid] 75 mcg PO DAILY 04/02/16 Methocarbamol [Robaxin-750] 750 mg PO BID 04/02/16 Naloxegol Oxalate [Movantik] 25 mg PO DAILY 04/02/16 Omeprazole [Prilosec] 20 mg PO DAILY 04/02/16 Oxycodone HCl/Acetaminophen [Percocet 10-325 mg Tablet] 10 mg PO 4XDAY PRN PRN 04/02/16 Sertraline HCl [Zoloft] 250 mg PO DAILY 04/02/16 Vit D3-Vit K/Berberine/Hops [Ostera Tablet] 1 tab PO DAILY 04/02/16 Gabapentin [Neurontin] 100 mg PO 4XDAY 10/31/16 Hydroxyzine Pamoate [Vistaril] 25 mg PO BID 10/31/16 Morphine Sulfate/Naltrexone [Embeda ER 60-2.4 mg Capsule] 1 each PO BID Amoxicillin/Pot Clavulanate [Augmentin] 875 mg PO Q12HR #14 tablet 11/07/16 Dimethicone/Oxybenzone [place] [Blistex Medicated [place] Lip [place]] 1 gm TOP PRN PRN #0 stick 11/07/16 Folic Acid 1 mg PO DAILY #0 tablet 11/07/16 Potassium Chloride E.r. [Klor-Con] 20 meq PO BID #30 tablet 11/07/16 Albuterol 2.5MG/Ipratrop 0.5MG [Duoneb (A & A)] 1 inh INH Q6HR 01/05/17 Aspirin [Aspirin EC] 1 tab PO DAILY 01/05/17 Fluticasone/Salmeterol [Advair 250-50 Diskus] 1 inh INH BID 01/05/17 Metoprolol Succinate E.r. [Toprol Xl] 1 tab PO DAILY 01/05/17 Tizanidine HCl [Zanaflex] 2 tab PO TID 01/05/17 Venlafaxine E.r. [Effexor Xr] 1 cap PO DAILY 01/05/17 I&O 01/04/17 01/05/17 01/06/17 06:59 06:59 06:59 Output Total 375 Balance -375 Laboratory 01/05/17 01/05/17 01/05/17 12:30 12:25 12:25 WBC RBC Hgb Hct MCV MCH MCHC RDW Std Deviation Plt Count MPV Neut % (Auto) Lymph % (Auto) [place] % (Auto) Eos % (Auto) Baso % (Auto) Neut # (Auto) Lymph # (Auto) [place] # (Auto) Eos # (Auto) Baso # (Auto) PT 12.7 H INR 1.20 PTT (Actin FS) 27.5 D-Dimer Specimen Type Sample Site pH pCO2 pO2 HCO3 Base Excess Oxyhemoglobin ABG O2 Sat (Calculated) ABG O2 Saturation ABG Carboxyhemoglobin ABG Methemoglobin Patrick Test A-a O2 Difference Total Hemoglobin Lactate Blood Gas Modality FiO2 % Sodium Potassium Chloride Carbon Dioxide Anion Gap BUN Creatinine Estimated GFR/1.73 m2 BUN/Creatinine Ratio Glucose Calculated Osmolality Calcium Magnesium Total Bilirubin AST ALT Alkaline Phosphatase Creatine Kinase Troponin T 0.075 Goo-D-Jpdgeafxkkp Pept Total Protein Albumin Globulin Albumin/Globulin Ratio Urine Source CATH Urine Color YELLOW Urine Turbidity CLEAR Urine pH 5.5 Ur Specific [place] 1.008 Urine Protein NEGATIVE Ur Glucose (Stick) NEGATIVE Ur Ketones (Stick) NEGATIVE Urine Blood TRACE A Urine Nitrite NEGATIVE Urine Bilirubin NEGATIVE Urobilinogen Dipstick NORMAL Urine Leukocytes NEGATIVE Urine WBC (Auto) <10 Urine RBC (Auto) <10 U Epithel Cells (Auto) <10 Urine Bacteria (Auto) NEGATIVE 01/05/17 01/05/17 01/05/17 12:25 12:25 12:25 WBC RBC Hgb Hct MCV MCH MCHC RDW Std Deviation Plt Count MPV Neut % (Auto) Lymph % (Auto) [place] % (Auto) Eos % (Auto) Baso % (Auto) Neut # (Auto) Lymph # (Auto) [place] # (Auto) Eos # (Auto) Baso # (Auto) PT INR PTT (Actin FS) D-Dimer 0.60 H Specimen Type Sample Site pH pCO2 pO2 HCO3 Base Excess Oxyhemoglobin ABG O2 Sat (Calculated) ABG O2 Saturation ABG Carboxyhemoglobin ABG Methemoglobin Patrick Test A-a O2 Difference Total Hemoglobin Lactate Blood Gas Modality FiO2 % Sodium 143 Potassium 2.7 L Chloride 99 Carbon Dioxide 28 Anion Gap 16 BUN 15 Creatinine 1.1 H Estimated GFR/1.73 m2 51 BUN/Creatinine Ratio 14 Glucose 104 Calculated Osmolality 286 Calcium 9.1 Magnesium 1.6 Total Bilirubin 0.62 AST 26 ALT 17 Alkaline Phosphatase 185 H Creatine Kinase 63 Troponin T Vrl-W-Vhbmerupfcm Pept 9756 H Total Protein 6.8 Albumin 3.8 Globulin 3.0 Albumin/Globulin Ratio 1.3 Urine Source Urine Color Urine Turbidity Urine pH Ur Specific [place] Urine Protein Ur Glucose (Stick) Ur Ketones (Stick) Urine Blood Urine Nitrite Urine Bilirubin Urobilinogen Dipstick Urine Leukocytes Urine WBC (Auto) Urine RBC (Auto) U Epithel Cells (Auto) Urine Bacteria (Auto) 01/05/17 01/05/17 12:25 12:14 WBC 14.33 H RBC 3.82 L Hgb 10.0 L Hct 29.9 L MCV 78.3 L MCH 26.2 L MCHC 33.4 RDW Std Deviation 18.1 H Plt Count 271 MPV 10.5 H Neut % (Auto) 91.1 H Lymph % (Auto) 3.7 L [place] % (Auto) 4.9 Eos % (Auto) 0.2 Baso % (Auto) 0.1 Neut # (Auto) 13.06 H Lymph # (Auto) 0.53 L [place] # (Auto) 0.70 H Eos # (Auto) 0.03 Baso # (Auto) 0.01 PT INR PTT (Actin FS) D-Dimer Specimen Type ARTERIAL Sample Site L RADIAL pH 7.42 pCO2 46 H pO2 47 L* HCO3 28.3 H Base Excess 4.7 H Oxyhemoglobin 82.1 L* ABG O2 Sat (Calculated) 11.6 L ABG O2 Saturation 85.3 L ABG Carboxyhemoglobin 2.10 ABG Methemoglobin 1.6 H Patrick Test YES A-a O2 Difference 609.0 Total Hemoglobin 10.0 L Lactate 1.40 Blood Gas Modality NRB FiO2 % 100.0 Sodium Potassium Chloride Carbon Dioxide Anion Gap BUN Creatinine Estimated GFR/1.73 m2 BUN/Creatinine Ratio Glucose Calculated Osmolality Calcium Magnesium Total Bilirubin AST ALT Alkaline Phosphatase Creatine Kinase Troponin T Cpu-S-Vdraonsuxsv Pept Total Protein Albumin Globulin Albumin/Globulin Ratio Urine Source Urine Color Urine Turbidity Urine pH Ur Specific [place] Urine Protein Ur Glucose (Stick) Ur Ketones (Stick) Urine Blood Urine Nitrite Urine Bilirubin Urobilinogen Dipstick Urine Leukocytes Urine WBC (Auto) Urine RBC (Auto) U Epithel Cells (Auto) Urine Bacteria (Auto) Orders Category Date Time Status Cardiac Monitoring DIRECTED Care 01/05/17 12:30 Active López Cath Insertion ORDERED Care 01/05/17 13:33 Active Saline Loc NOW Care 01/05/17 12:30 Active CHEST-PORTABLE [RAD] Stat Exams 01/05/17 14:05 Ordered ABG [RESP] Routine Lab 01/05/17 12:14 Completed CBC WITH ELECTRONIC DIFF [HEME] Stat Lab 01/05/17 12:25 Completed CK PROFILE [SP CHEM] Stat Lab 01/05/17 12:25 Completed COMPREHENSIVE METABOLIC PANEL [CHEM] Stat Lab 01/05/17 12:25 Completed D-DIMER [CHEM] Stat Lab 01/05/17 12:25 Completed MAGNESIUM [CHEM] Stat Lab 01/05/17 12:25 Completed PRO B-NATRIURETIC PEPTIDE Stat Lab 01/05/17 12:25 Completed PROTIME WITH INR [COAG] Stat Lab 01/05/17 12:25 Completed PTT [COAG] Stat Lab 01/05/17 12:25 Completed TROPONIN T Stat Lab 01/05/17 12:25 Completed UA NIMS W/REFLEX CULT [URINALYSIS] Stat Lab 01/05/17 12:30 Completed 0.9% Sodium Chloride Inj [Ns] 1,000 ml Med 01/05/17 12:23 Discontinued .ROUTE As Directed 0.9% Sodium Chloride Inj [Ns] 1,000 ml Med 01/05/17 12:30 Discontinued IV 999 mls/hr Aspirin Med 01/05/17 12:22 Discontinued 325 mg .ROUTE .STK-MED ONE Aspirin Med 01/05/17 12:30 Discontinued 325 mg PO STAT STA Diltiazem 100 mg/Ns [Cardizem 100 mg/Ns] 100 ml Med 01/05/17 12:17 Discontinued .ROUTE As Directed Diltiazem 100 mg/Ns [Cardizem 100 mg/Ns] 100 ml Med 01/05/17 13:00 Active IV Per Protocol Diltiazem [Cardizem] Med 01/05/17 12:30 Discontinued 20 mg IV NOW ONE Diltiazem [Cardizem] Med 01/05/17 12:17 Discontinued 25 mg .ROUTE .STK-MED ONE Furosemide [Lasix] Med 01/05/17 14:04 Discontinued 80 mg IV NOW ONE EKG [EKG] Stat Ther 01/05/17 12:30 Draft pt was placed on BiPap (Kevin Leslie) Laboratory Results - last 24 hr 01/05/17 01/05/17 01/05/17 12:14 12:25 12:25 WBC 14.33 H RBC 3.82 L Hgb 10.0 L Hct 29.9 L MCV 78.3 L MCH 26.2 L MCHC 33.4 RDW Std Deviation 18.1 H Plt Count 271 MPV 10.5 H Neut % (Auto) 91.1 H Lymph % (Auto) 3.7 L [place] % (Auto) 4.9 Eos % (Auto) 0.2 Baso % (Auto) 0.1 Neut # (Auto) 13.06 H Lymph # (Auto) 0.53 L [place] # (Auto) 0.70 H Eos # (Auto) 0.03 Baso # (Auto) 0.01 PT INR PTT (Actin FS) D-Dimer Specimen Type ARTERIAL Sample Site L RADIAL pH 7.42 pCO2 46 H pO2 47 L* HCO3 28.3 H Base Excess 4.7 H Oxyhemoglobin 82.1 L* ABG O2 Sat (Calculated) 11.6 L ABG O2 Saturation 85.3 L ABG Carboxyhemoglobin 2.10 ABG Methemoglobin 1.6 H Patrick Test YES A-a O2 Difference 609.0 Total Hemoglobin 10.0 L Lactate 1.40 Blood Gas Modality NRB FiO2 % 100.0 Sodium 143 Potassium 2.7 L Chloride 99 Carbon Dioxide 28 Anion Gap 16 BUN 15 Creatinine 1.1 H Estimated GFR/1.73 m2 51 BUN/Creatinine Ratio 14 Glucose 104 Calculated Osmolality 286 Calcium 9.1 Magnesium 1.6 Total Bilirubin 0.62 AST 26 ALT 17 Alkaline Phosphatase 185 H Creatine Kinase 63 Troponin T Wly-V-Pehdcmxisbv Pept Total Protein 6.8 Albumin 3.8 Globulin 3.0 Albumin/Globulin Ratio 1.3 Urine Source Urine Color Urine Turbidity Urine pH Ur Specific [place] Urine Protein Ur Glucose (Stick) Ur Ketones (Stick) Urine Blood Urine Nitrite Urine Bilirubin Urobilinogen Dipstick Urine Leukocytes Urine WBC (Auto) Urine RBC (Auto) U Epithel Cells (Auto) Urine Bacteria (Auto) 01/05/17 01/05/17 01/05/17 12:25 12:25 12:25 WBC RBC Hgb Hct MCV MCH MCHC RDW Std Deviation Plt Count MPV Neut % (Auto) Lymph % (Auto) [place] % (Auto) Eos % (Auto) Baso % (Auto) Neut # (Auto) Lymph # (Auto) [place] # (Auto) Eos # (Auto) Baso # (Auto) PT 12.7 H INR 1.20 PTT (Actin FS) 27.5 D-Dimer 0.60 H Specimen Type Sample Site pH pCO2 pO2 HCO3 Base Excess Oxyhemoglobin ABG O2 Sat (Calculated) ABG O2 Saturation ABG Carboxyhemoglobin ABG Methemoglobin Patrick Test A-a O2 Difference Total Hemoglobin Lactate Blood Gas Modality FiO2 % Sodium Potassium Chloride Carbon Dioxide Anion Gap BUN Creatinine Estimated GFR/1.73 m2 BUN/Creatinine Ratio Glucose Calculated Osmolality Calcium Magnesium Total Bilirubin AST ALT Alkaline Phosphatase Creatine Kinase Troponin T Bqk-S-Kyosvrkqzgh Pept 9756 H Total Protein Albumin Globulin Albumin/Globulin Ratio Urine Source Urine Color Urine Turbidity Urine pH Ur Specific [place] Urine Protein Ur Glucose (Stick) Ur Ketones (Stick) Urine Blood Urine Nitrite Urine Bilirubin Urobilinogen Dipstick Urine Leukocytes Urine WBC (Auto) Urine RBC (Auto) U Epithel Cells (Auto) Urine Bacteria (Auto) 01/05/17 01/05/17 12:25 12:30 WBC RBC Hgb Hct MCV MCH MCHC RDW Std Deviation Plt Count MPV Neut % (Auto) Lymph % (Auto) [place] % (Auto) Eos % (Auto) Baso % (Auto) Neut # (Auto) Lymph # (Auto) [place] # (Auto) Eos # (Auto) Baso # (Auto) PT INR PTT (Actin FS) D-Dimer Specimen Type Sample Site pH pCO2 pO2 HCO3 Base Excess Oxyhemoglobin ABG O2 Sat (Calculated) ABG O2 Saturation ABG Carboxyhemoglobin ABG Methemoglobin Patrick Test A-a O2 Difference Total Hemoglobin Lactate Blood Gas Modality FiO2 % Sodium Potassium Chloride Carbon Dioxide Anion Gap BUN Creatinine Estimated GFR/1.73 m2 BUN/Creatinine Ratio Glucose Calculated Osmolality Calcium Magnesium Total Bilirubin AST ALT Alkaline Phosphatase Creatine Kinase Troponin T 0.075 Cra-G-Qfxrjxbwwak Pept Total Protein Albumin Globulin Albumin/Globulin Ratio Urine Source CATH Urine Color YELLOW Urine Turbidity CLEAR Urine pH 5.5 Ur Specific [place] 1.008 Urine Protein NEGATIVE Ur Glucose (Stick) NEGATIVE Ur Ketones (Stick) NEGATIVE Urine Blood TRACE A Urine Nitrite NEGATIVE Urine Bilirubin NEGATIVE Urobilinogen Dipstick NORMAL Urine Leukocytes NEGATIVE Urine WBC (Auto) <10 Urine RBC (Auto) <10 U Epithel Cells (Auto) <10 Urine Bacteria (Auto) NEGATIVE Vital Signs Temp Pulse Resp BP Pulse Ox 01/05/17 12:27 97.8 F 176 H 32 H 121/78 100 codeine Allergy (Unknown, Verified 01/08/15 10:38) Unknown fentanyl Allergy (Unknown, Verified 01/08/15 10:38) Unknown meperidine HCl * [From Demerol] Allergy (Unknown, Verified 01/08/15 10:38) Unknown Alprazolam [Xanax] 0.25 mg PO BID 04/02/16 Atorvastatin Calcium [Lipitor] 20 mg PO QHS 04/02/16 Fluticasone/Salmeterol [Advair 250-50 Diskus] 1 puff INH BID 04/02/16 Furosemide [Lasix] 40 mg PO DAILY 04/02/16 Levothyroxine [Synthroid] 75 mcg PO DAILY 04/02/16 Methocarbamol [Robaxin-750] 750 mg PO BID 04/02/16 Naloxegol Oxalate [Movantik] 25 mg PO DAILY 04/02/16 Omeprazole [Prilosec] 20 mg PO DAILY 04/02/16 Oxycodone HCl/Acetaminophen [Percocet 10-325 mg Tablet] 10 mg PO 4XDAY PRN PRN 04/02/16 Sertraline HCl [Zoloft] 250 mg PO DAILY 04/02/16 Vit D3-Vit K/[place]/Hops [Ostera Tablet] 1 tab PO DAILY 04/02/16 Gabapentin [Neurontin] 100 mg PO 4XDAY 10/31/16 Hydroxyzine Pamoate [Vistaril] 25 mg PO BID 10/31/16 Morphine Sulfate/Naltrexone [Embeda ER 60-2.4 mg Capsule] 1 each PO BID Amoxicillin/Pot Clavulanate [Augmentin] 875 mg PO Q12HR #14 tablet 11/07/16 Dimethicone/Oxybenzone [place] [Blistex Medicated [place] Lip [place]] 1 gm TOP PRN PRN #0 stick 11/07/16 Folic Acid 1 mg PO DAILY #0 tablet 11/07/16 Potassium Chloride E.r. [Klor-Con] 20 meq PO BID #30 tablet 11/07/16 Albuterol 2.5MG/Ipratrop 0.5MG [Duoneb (A & A)] 1 inh INH Q6HR 01/05/17 Aspirin [Aspirin EC] 1 tab PO DAILY 01/05/17 Fluticasone/Salmeterol [Advair 250-50 Diskus] 1 inh INH BID 01/05/17 Metoprolol Succinate E.r. [Toprol Xl] 1 tab PO DAILY 01/05/17 Tizanidine HCl [Zanaflex] 2 tab PO TID 01/05/17 Venlafaxine E.r. [Effexor Xr] 1 cap PO DAILY 01/05/17 I&O 01/04/17 01/05/17 01/06/17 06:59 06:59 06:59 Output Total 375 Balance -375 Laboratory 01/05/17 01/05/17 01/05/17 12:30 12:25 12:25 WBC RBC Hgb Hct MCV MCH MCHC RDW Std Deviation Plt Count MPV Neut % (Auto) Lymph % (Auto) [place] % (Auto) Eos % (Auto) Baso % (Auto) Neut # (Auto) Lymph # (Auto) [place] # (Auto) Eos # (Auto) Baso # (Auto) PT 12.7 H INR 1.20 PTT (Actin FS) 27.5 D-Dimer Specimen Type Sample Site pH pCO2 pO2 HCO3 Base Excess Oxyhemoglobin ABG O2 Sat (Calculated) ABG O2 Saturation ABG Carboxyhemoglobin ABG Methemoglobin Patrick Test A-a O2 Difference Total Hemoglobin Lactate Blood Gas Modality FiO2 % Sodium Potassium Chloride Carbon Dioxide Anion Gap BUN Creatinine Estimated GFR/1.73 m2 BUN/Creatinine Ratio Glucose Calculated Osmolality Calcium Magnesium Total Bilirubin AST ALT Alkaline Phosphatase Creatine Kinase Troponin T 0.075 Vtn-X-Jmtiretabzk Pept Total Protein Albumin Globulin Albumin/Globulin Ratio Urine Source CATH Urine Color YELLOW Urine Turbidity CLEAR Urine pH 5.5 Ur Specific [place] 1.008 Urine Protein NEGATIVE Ur Glucose (Stick) NEGATIVE Ur Ketones (Stick) NEGATIVE Urine Blood TRACE A Urine Nitrite NEGATIVE Urine Bilirubin NEGATIVE Urobilinogen Dipstick NORMAL Urine Leukocytes NEGATIVE Urine WBC (Auto) <10 Urine RBC (Auto) <10 U Epithel Cells (Auto) <10 Urine Bacteria (Auto) NEGATIVE 01/05/17 01/05/17 01/05/17 12:25 12:25 12:25 WBC RBC Hgb Hct MCV MCH MCHC RDW Std Deviation Plt Count MPV Neut % (Auto) Lymph % (Auto) [place] % (Auto) Eos % (Auto) Baso % (Auto) Neut # (Auto) Lymph # (Auto) [place] # (Auto) Eos # (Auto) Baso # (Auto) PT INR PTT (Actin FS) D-Dimer 0.60 H Specimen Type Sample Site pH pCO2 pO2 HCO3 Base Excess Oxyhemoglobin ABG O2 Sat (Calculated) ABG O2 Saturation ABG Carboxyhemoglobin ABG Methemoglobin Patrick Test A-a O2 Difference Total Hemoglobin Lactate Blood Gas Modality FiO2 % Sodium 143 Potassium 2.7 L Chloride 99 Carbon Dioxide 28 Anion Gap 16 BUN 15 Creatinine 1.1 H Estimated GFR/1.73 m2 51 BUN/Creatinine Ratio 14 Glucose 104 Calculated Osmolality 286 Calcium 9.1 Magnesium 1.6 Total Bilirubin 0.62 AST 26 ALT 17 Alkaline Phosphatase 185 H Creatine Kinase 63 Troponin T Zfl-N-Zwnskyqkpbf Pept 9756 H Total Protein 6.8 Albumin 3.8 Globulin 3.0 Albumin/Globulin Ratio 1.3 Urine Source Urine Color Urine Turbidity Urine pH Ur Specific [place] Urine Protein Ur Glucose (Stick) Ur Ketones (Stick) Urine Blood Urine Nitrite Urine Bilirubin Urobilinogen Dipstick Urine Leukocytes Urine WBC (Auto) Urine RBC (Auto) U Epithel Cells (Auto) Urine Bacteria (Auto) 01/05/17 01/05/17 12:25 12:14 WBC 14.33 H RBC 3.82 L Hgb 10.0 L Hct 29.9 L MCV 78.3 L MCH 26.2 L MCHC 33.4 RDW Std Deviation 18.1 H Plt Count 271 MPV 10.5 H Neut % (Auto) 91.1 H Lymph % (Auto) 3.7 L [place] % (Auto) 4.9 Eos % (Auto) 0.2 Baso % (Auto) 0.1 Neut # (Auto) 13.06 H Lymph # (Auto) 0.53 L [place] # (Auto) 0.70 H Eos # (Auto) 0.03 Baso # (Auto) 0.01 PT INR PTT (Actin FS) D-Dimer Specimen Type ARTERIAL Sample Site L RADIAL pH 7.42 pCO2 46 H pO2 47 L* HCO3 28.3 H Base Excess 4.7 H Oxyhemoglobin 82.1 L* ABG O2 Sat (Calculated) 11.6 L ABG O2 Saturation 85.3 L ABG Carboxyhemoglobin 2.10 ABG Methemoglobin 1.6 H Patrick Test YES A-a O2 Difference 609.0 Total Hemoglobin 10.0 L Lactate 1.40 Blood Gas Modality NRB FiO2 % 100.0 Sodium Potassium Chloride Carbon Dioxide Anion Gap BUN Creatinine Estimated GFR/1.73 m2 BUN/Creatinine Ratio Glucose Calculated Osmolality Calcium Magnesium Total Bilirubin AST ALT Alkaline Phosphatase Creatine Kinase Troponin T Ged-P-Ynadqijbtmm Pept Total Protein Albumin Globulin Albumin/Globulin Ratio Urine Source Urine Color Urine Turbidity Urine pH Ur Specific [place] Urine Protein Ur Glucose (Stick) Ur Ketones (Stick) Urine Blood Urine Nitrite Urine Bilirubin Urobilinogen Dipstick Urine Leukocytes Urine WBC (Auto) Urine RBC (Auto) U Epithel Cells (Auto) Urine Bacteria (Auto) Orders Category Date Time Status Admit - [facility] Routine AdmDCTranf 01/05/17 14:18 Ordered Cardiac Monitoring DIRECTED Care 01/05/17 12:30 Active Daily Weights 0500 Care 01/05/17 14:18 Active López Cath Insertion ORDERED Care 01/05/17 13:33 Active Intake and Output-Strict ORDERED Care 01/05/17 14:18 Active Saline Loc DIRECTED Care 01/05/17 14:18 Active Saline Loc NOW Care 01/05/17 12:30 Active CHEST-PORTABLE [RAD] Stat Exams 01/05/17 14:05 Taken ABG [RESP] Routine Lab 01/05/17 12:14 Completed CBC WITH ELECTRONIC DIFF [HEME] Stat Lab 01/05/17 12:25 Completed CK PROFILE [SP CHEM] Stat Lab 01/05/17 12:25 Completed COMPREHENSIVE METABOLIC PANEL [CHEM] Stat Lab 01/05/17 12:25 Completed D-DIMER [CHEM] Stat Lab 01/05/17 12:25 Completed MAGNESIUM [CHEM] Stat Lab 01/05/17 12:25 Completed PRO B-NATRIURETIC PEPTIDE Stat Lab 01/05/17 12:25 Completed PROTIME WITH INR [COAG] Stat Lab 01/05/17 12:25 Completed PTT [COAG] Stat Lab 01/05/17 12:25 Completed TROPONIN T Stat Lab 01/05/17 12:25 Completed UA NIMS W/REFLEX CULT [URINALYSIS] Stat Lab 01/05/17 12:30 Completed 0.9% Sodium Chloride Inj [Ns] 1,000 ml Med 01/05/17 12:23 Discontinued .ROUTE As Directed 0.9% Sodium Chloride Inj [Ns] 1,000 ml Med 01/05/17 12:30 Discontinued IV 999 mls/hr Aspirin Med 01/05/17 12:22 Discontinued 325 mg .ROUTE .STK-MED ONE Aspirin Med 01/05/17 12:30 Discontinued 325 mg PO STAT STA Diltiazem 100 mg/Ns [Cardizem 100 mg/Ns] 100 ml Med 01/05/17 12:17 Discontinued .ROUTE As Directed Diltiazem 100 mg/Ns [Cardizem 100 mg/Ns] 100 ml Med 01/05/17 13:00 Active IV Per Protocol Diltiazem [Cardizem] Med 01/05/17 12:30 Discontinued 20 mg IV NOW ONE Diltiazem [Cardizem] Med 01/05/17 12:17 Discontinued 25 mg .ROUTE .STK-MED ONE Furosemide [Lasix] Med 01/05/17 14:04 Discontinued 80 mg IV NOW ONE Potassium Phosphate 40 meq Med 01/05/17 14:16 Active 0.9% Sodium Chloride Inj [Ns] 250 ml IV NOW Telemetry [OM.EQ] Routine Oth 01/05/17 14:18 Active EKG [EKG] Stat Ther 01/05/17 12:30 Draft Transfer/Admit Order [TRANSFER] Routine Transfer 01/05/17 14:21 Ordered (Marylu Jimenes) Departure - Departure Time of Disposition Order: 14:18 Certified Medical Emergency: Emergent - Critical Care Note Total Time (mins): 60 Critical Care Statement: This patient required my direct personal management to treat or rule out processes, the absence of which, could potentiallly result in sudden, clinically significant life or limb threatening deterioration. <Kevin Leslie - Last Filed: 01/05/17 14:16> - Departure Time of Disposition Order: 14:33 Certified Medical Emergency: Emergent - Critical Care Note Total Time (mins): 45 Critical Care Statement: This patient required my direct personal management to treat or rule out processes, the absence of which, could potentiallly result in sudden, clinically significant life or limb threatening deterioration. <Marylu Jimenes - Last Filed: 01/05/17 14:33> - Departure DIAGNOSIS: Atrial fibrillation with RVR, Hypokalemia, Respiratory distress Heart failure Qualifiers: Heart failure type: systolic Heart failure chronicity: acute Qualified Code(s) : I50.21 - Acute systolic (congestive) heart failure Dyspnea Qualifiers: Dyspnea type: shortness of breath Qualified Code(s): R06.02 - Shortness of breath Disposition: ADMITTED INPATIENT 09 Condition: Critical Referrals: Samson Gomez MD [Primary Care Provider] - Attestation - Scribe Verification/Attestation Scribe:: Kevin Leslie Acting as Scribe for:: Marylu Jimenes Scribe documention review:: This chart was documented by a scribe and accurately reflects the service the provider performed and the decisions made by the provider. <Kevin Leslie - Last Filed: 01/05/17 14:16> Physician Attestation - Physician Attestation I, the provider, attest to the following statement:: Marylu Jimenes Physician documentation Attestation:: This documentation recorded by the scribe accurately reflects the service I personally performed and the decisions made by me. <Kevin Leslie - Last Filed: 01/05/17 14:16>
[2017-01-05 12:59] LABS: ALLEN TEST YES; BE 4.7 mmoll (-3.0-3.0); BLOOD TYPE ARTERIAL; DRAW SITE L RADIAL; METHB 1.6 % (0.0-1.5); O2(CT) 11.6 mL/dL (15.0-23.0); PCO2(98.6) 46 mmHg (35-45); SAMPLE BLOOD; SAO2 85.3 % (95.0-100.0); pH(98.6) 7.42 (7.35-7.45)
[2017-01-05 13:01] LABS: PO2(98.6) 47 mmHg (60-100)
[2017-01-05 13:02] LABS: MODALITY NRB
[2017-01-05 13:09] LABS: BASO% 0.1 % (0.0-0.8); EOS# 0.03 X1000 (0.0-0.7); EOS% 0.2 % (0.0-10.0); HEMATOCRIT 29.9 % (37.0-47.0); LYMPH# 0.53 X1000 (1.2-3.4); LYMPH% 3.7 % (20.5-51.1); MANUAL DIFF NEEDED? NO; MCH 26.2 PG (27-31); MCHC 33.4 g/dL (33-37); MCV 78.3 FL (81-99); MONO% 4.9 % (1.7-9.3); MPV 10.5 FL (7.4-10.4); NEUT% 91.1 % (42.2-75.2); PLT 271 X1000 (130-400); RBC 3.82 XMIL (4.2-5.4)
[2017-01-05 13:10] LABS: INR 1.2; PROTIME 12.7 Seconds (9.2-11.7); PTT 27.5 Seconds (22.0-36.0)
[2017-01-05 13:13] LABS: ALBUMIN 3.8 g/dL (3.5-5.0); CALCIUM 9.1 mg/dL (8.8-10.2); MAGNESIUM 1.6 mg/dL (1.5-2.7); POTASSIUM 2.7 mmol/L (3.5-5.1); TOTAL BILIRUBIN 0.62 mg/dL (0.20-1.00); TOTAL PROTEIN 6.8 g/dL (6.3-8.3)
--- NOTE | 2017-01-05 13:54 | EKG Report ---
Test Performed on : 01/05/2017 12:12:14 PM Test Reason : Chest Pain Blood Pressure : / mmHG Vent. Rate : 152 BPM Atrial Rate : 131 BPM P-R Int : 000 ms QRS Dur : 154 ms QT Int : 298 ms P-R-T Axes : 000 050 092 degrees QTc Int : 473 ms Atrial fibrillation. with rapid ventricular response. with premature ventricular or aberrantly conduc denice complexes. Right bundle branch block Abnormal ECG When compared with ECG of 31-OCT-2016 16:58, Atrial fibrillation. has replaced Sinus rhythm. Vent. rate has increased BY 53 BPM Right bundle branch block is now present Borderline criteria for Anterior infarct are no longer present Unconfirmed Result
[2017-01-05 14:04] LABS: URINE CULTURE NEEDED? NO; URINE MICRO REVIEW NEEDED? NO; URINE SOURCE CATH
[2017-01-05] MEDS ORDERED: LASIX IV ONE ×2 (14:04→22:11)
[2017-01-05 14:10] LABS: BILIRUBIN URINE NEGATIVE (NEGATIVE); BLOOD URINE TRACE (NEGATIVE); COLOR YELLOW; GLUCOSE URINE NEGATIVE (NEGATIVE); LEUKOCYTES URINE NEGATIVE (NEGATIVE); NITRITE URINE NEGATIVE (NEGATIVE); PH URINE 5.5; PROTEIN URINE NEGATIVE (NEGATIVE); SP GRAVITY URINE 1.008; TURBIDITY URINE CLEAR (CLEAR); UROBILINOGEN URINE NORMAL (NORMAL)
[2017-01-05 14:11] LABS: UR EPITHELIAL CELLS <10 /HPF (<10); URINE BACTERIA NEGATIVE /HPF; URINE RBC <10 /HPF (<10); URINE WBC <10 /HPF (<10)
[2017-01-05] MEDS ORDERED: POTASSIUM PHOSPHATE 40 MEQ in NS 250 ML IV ONE (14:16)
[2017-01-05] MEDS ORDERED: VANCOMYCIN 1 GM/NS 250 ML IV ONE (14:27)
[2017-01-05] MEDS ORDERED: ZOSYN 3.375 GM/NS 50 ML IV ONE (14:27)
--- NOTE | 2017-01-05 15:19 | Diag Imaging Result Document ---
PROCEDURE NAME: CHEST-PORTABLE - 01/05/2017 AP PORTABLE CHEST: TIME: 1418 hours FINDINGS: There is alveolar opacity throughout both lungs, particularly peripherally, which has worsened particularly on the left side since the previous study of 11/05/2016. There is cardiomegaly. IMPRESSION: Pulmonary edema.
[2017-01-05] MEDS ORDERED: PERCOCET-10 PO ONE (16:12)
[2017-01-05] MEDS ORDERED: KLOR-CON PO ONE (17:31)
[2017-01-05] MEDS: LOVENOX SUBQ SCH ×3 (18:23→20:26)
[2017-01-05] MEDS: PROTONIX IV SCH ×2 (18:28→20:25)
[2017-01-05] MEDS: DUONEB (A & A) INH SCH (19:27)
[2017-01-05] MEDS: SODIUM CHLORIDE 0.9% INJ SCH (20:25)
[2017-01-05] MEDS: HYDROXYZINE PO SCH (20:26)
[2017-01-05] MEDS: NEURONTIN PO SCH (20:26)
[2017-01-05] MEDS: LIPITOR PO SCH (20:26)
[2017-01-05] MEDS: KLOR-CON PO SCH (20:26)
[2017-01-05 20:49] LABS: CK INDEX 12.9 (0.0-2.5); CK-MB 28.23 ng/mL (0.0-5.0)
--- NOTE | 2017-01-05 20:57 | HISTORY AND PHYSICAL ---
CHIEF COMPLAINT: Shortness of breath. HISTORY OF PRESENT ILLNESS: Ms. Colin, 61-year-old white female patient, known case of advanced COPD, chronic respiratory failure, not doing well last few days. Her O2 saturation even with the oxygen was staying between 60 and 70. The patient was getting short of breath. The patient was at home. EMS was called. According to , she was getting weak and lethargic. When the EMS arrived, her O2 saturation was low. She was placed on non-rebreather and when she was placed on telemetry she was in atrial fibrillation with rapid ventricular response. Patient evaluated in the ER. The patient found to be in pulmonary edema. She was given IV Lasix. The patient was started on Cardizem drip. She was converted to sinus rhythm with rate of 80. She started feeling better. The patient was acutely ill, hypoxemic and patient was admitted for further care. The patient does have chronic cough with scanty sputum production. She denied any fever. The patient does have some chills recently. No major weight loss or weight gain. No typical chest pain. She did have some chest tightness. The patient is very vague historian. Recently, patient had stress test done as preparation for anesthesia for her back pain, and she was told her stress test was benign. Patient was also seen by ham clerk and she was clear to have anesthesia for her back surgery. Patient does have chronic back pain. The patient is on pain medication being followed up by pain specialist. The patient does have chronic constipation. She does have hernia of the abdominal wall. She denied any dysuria or hematuria. At times, urinary hesitancy. No blood or mucus in the stool. No runny nose, stuffy nose, sinus drainage. The patient had a fall a few days ago. Complaining of pain in the left hand and knee. I did x-ray recently and it was negative for fracture. The patient does feel fatigued, tired, and no energy. The patient is very vague and poor historian. ALLERGIES: Codeine, fentanyl patch, Demerol. PAST MEDICAL HISTORY: Significant for COPD, chronic respiratory failure on home oxygen, hypothyroidism, hyperlipidemia, gastritis, hernia of the abdominal wall, low back pain, chronic constipation, traumatic computation of the distal phalanx of the left foot, morbid obesity, gastritis and reflux disease, situational anxiety and depression, hypertension. PERSONAL HISTORY: . Lives with the . Quit smoking. Denied alcohol or substance abuse. REVIEW OF SYSTEMS: As per HPI. FAMILY HISTORY: Significant for mother who of congestive heart failure. Otherwise, noncontributory. PHYSICAL EXAMINATION: GENERAL: Middle-aged white female patient, in mild distress. VITAL SIGNS: On admission, blood pressure 121/78, pulse 176, respirations 32, temperature 97.8 degrees. Telemetry did reveal atrial fibrillation with rapid ventricular response. The patient was in moderate cardiopulmonary distress. SKIN: Senile turgor. HEENT: Head atraumatic, normocephalic. [place] conjunctivae. Anicteric sclerae. Extraocular muscle movement normal. Fundus cannot be penetrated. Good oral hygiene. No tonsillopharyngeal congestion or exudate. Ears and nose benign. NECK: Supple. No JVD, thyromegaly or lymphadenopathy. CHEST: Bibasilar crepitation, occasional wheezing. CARDIOVASCULAR: S1 and S2. Tachycardia. No gallop or thrill. ABDOMEN: Soft, globular. Bowel sounds present. EXTREMITIES: No cyanosis, clubbing. Minimal swelling. No acute DVT. HIGHWAY COMMISSIONER: Alert, awake, answering questions fairly well. PERTINENT DATA: Leukocytosis with left shift. PT/INR 1.2. D-dimer was 0.6. PTT was 27.5. Blood gas: PH 7.42, pCO2 46, PO2 47. This was done on BiPAP. Patient found to have hypokalemia. Her magnesium level was 1.6, which was low-normal. I am going to supplement magnesium. ProBNP was 9756. Chest x-ray did reveal pulmonary edema. CONSIDERATION: Atrial fibrillation with rapid ventricular response which seems to be a new onset. Chest x-ray did reveal pulmonary edema. Patient does have hernia of the abdominal wall, hypothyroidism, gastritis and reflux disease. Chronic pain. Depression. Acute hypoxemic respiratory failure. PLAN: Admit the patient. Intravenous Lasix. BiPAP. Bronchodilator treatment. The patient did receive a steroid in the past. I am going to put her on small dose of Solu-Medrol to prevent stress-induced adrenal insufficiency. The patient did receive intravenous antibiotics. Overall plan discussed with the patient and her . They are in agreement. I am going to check serial electrocardiogram and cardiac isoenzymes.
[2017-01-05] MEDS: SOLU-MEDROL IV SCH (21:20)
[2017-01-05] MEDS ORDERED: NITROGLYCERIN TOP ONE (21:51)
[2017-01-05] MEDS ORDERED: MAGNESIUM SULFATE 2 GM/S.W.I. 50 ML IV ONE (23:04)
[2017-01-05] MEDS: PERCOCET-10 PO PRN (23:27)
[2017-01-06 00:03] LABS: CK INDEX 12.6 (0.0-2.5); CK-MB 23.42 ng/mL (0.0-5.0)
[2017-01-06] MEDS: DUONEB (A & A) INH SCH ×4 (03:27→19:20)
[2017-01-06] MEDS: ADVAIR 250/50 DISKUS INH SCH ×3 (03:28→19:20)
[2017-01-06 04:20] LABS: ALLEN TEST YES; BLOOD TYPE ARTERIAL; DRAW SITE R RADIAL; METHB 1.5 % (0.0-1.5); SAMPLE BLOOD
[2017-01-06 04:22] LABS: MODALITY BI PAP
[2017-01-06 04:27] LABS: BE 10.1 mmoll (-3.0-3.0); O2(CT) 13.2 mL/dL (15.0-23.0); PO2(98.6) 158 mmHg (60-100); SAO2 98.9 % (95.0-100.0); THB 9.5 g/dL (11.5-17.4); pH(98.6) 7.56 (7.35-7.45)
[2017-01-06] MEDS: SOLU-MEDROL IV SCH ×3 (04:43→20:41)
[2017-01-06 04:57] LABS: PCO2(98.6) 37 mmHg (35-45)
[2017-01-06 05:18] LABS: BASO% 0.1 % (0.0-0.8); EOS# 0.01 X1000 (0.0-0.7); EOS% 0.1 % (0.0-10.0); HEMATOCRIT 27.8 % (37.0-47.0); HEMOGLOBIN 9.2 g/dL (12.0-16.0); IMM GRAN# 0.09 X1000 (0.0-0.04); IMM GRAN% 0.8 % (0.0-0.5); LYMPH% 2.8 % (20.5-51.1); MANUAL DIFF NEEDED? YES; MCHC 33.1 g/dL (33-37); MCV 78.5 FL (81-99); MONO# 0.38 X1000 (0.11-0.59); MONO% 3.5 % (1.7-9.3); MPV 10.6 FL (7.4-10.4); NEUT% 92.7 % (42.2-75.2); PLT 256 X1000 (130-400); RBC 3.54 XMIL (4.2-5.4)
[2017-01-06 05:26] LABS: LYMPHS 2 % (21-51); MONO 2 % (1-9)
[2017-01-06 05:44] LABS: ALBUMIN 3.2 g/dL (3.5-5.0); CALCIUM 8.6 mg/dL (8.8-10.2); MAGNESIUM 1.7 mg/dL (1.5-2.7); POTASSIUM 2.8 mmol/L (3.5-5.1); TOTAL BILIRUBIN 0.5 mg/dL (0.20-1.00); TOTAL PROTEIN 6.2 g/dL (6.3-8.3)
[2017-01-06] MEDS ORDERED: LASIX IV ONE (05:48)
[2017-01-06] MEDS: MOVANTIK PO SCH (06:03)
[2017-01-06 06:08] LABS: HEMOGLOBIN A1C 5.5 % (4.8-6.0)
[2017-01-06 06:42] LABS: HDL 13 mg/dL (45-65); LDL 84 mg/dL; TRIGLYCERIDES 126 mg/dL (35-135); VLDL 25 mg/dL
[2017-01-06 07:09] LABS: ALBUMIN 3.4 g/dL (3.5-5.0); CALCIUM 8.3 mg/dL (8.8-10.2); POTASSIUM 2.9 mmol/L (3.5-5.1); TOTAL BILIRUBIN 0.49 mg/dL (0.20-1.00); TOTAL PROTEIN 5.7 g/dL (6.3-8.3)
--- NOTE | 2017-01-06 07:36 | PROGRESS NOTE ---
DATE: 01/06/2017 SUBJECTIVELY: Ms. Colin is doing better. The patient is complaining of pain in the left arm off and on. Her shortness of breath is improving. No high-grade fever or chills. The patient does have mild cough. No nausea or vomiting. No typical chest pain. Patient admitted with respiratory failure and pulmonary edema. She ruled in for IA. OBJECTIVE: Vital Signs: Noted. Neck: Supple. No JVD. Lungs: Bibasilar crepitations, occasional wheezing. Cardiovascular: S1 and S2 heard regular. Telemetry reveals sinus rhythm. Extremities: No cyanosis, clubbing. No acute DVT. OPENSTACK DEVELOPER: Alert, awake, able to move all 4 limbs. Patient does have bruise edinson on the left hand which is chronic. LABORATORY DATA: CBC done today. Hemoglobin 9.2, hematocrit 27.8, platelet 256,000, WBC count 10.76, pH blood gas pH 7.56, pCO2 37, PO2 was 158. This was done on BiPAP. Her initial troponin was 0.414. Repeat one was 0.390. CK MB was elevated. TSH 1.84. Initial EKG did reveal atrial fibrillation with rapid ventricular response. ST-T wave changes in the anterolateral lead, rate- related or due to subendocardial injury. CONSIDERATION: Patient admitted with new onset atrial fibrillation with rapid ventricular response and pulmonary edema. She ruled in for IA which could be due to pulmonary edema. The patient does have advanced COPD and chronic respiratory failure. Her other problem includes chronic pain, hernia of the abdominal wall, hypothyroidism, gastritis and reflux disease, hyperlipidemia. PLAN: Cardiology consult. The patient recently had stress test done in [place] and it was negative. Meanwhile will continue current treatment, IV Lasix, pulmonary toilet, bronchodilator care and close observation. The patient is converted to sinus rhythm. Her rate is 80.
--- NOTE | 2017-01-06 07:39 | Diag Imaging Result Document ---
PROCEDURE NAME: CHEST-PORTABLE - 01/06/2017 SINGLE FRONTAL RADIOGRAPH OF THE CHEST: COMPARISON: 01/05/2017. FINDINGS: Inspiration is suboptimal. Diffuse bilateral infiltrates likely representing pulmonary edema plus or minus pneumonia is unchanged. No new consolidations identified. Cardiac silhouette is stable. IMPRESSION: Stable chest.
--- NOTE | 2017-01-06 07:53 | EKG Report ---
Test Performed on : 01/05/2017 9:35:30 PM Test Reason : INCREASED TROP Blood Pressure : / mmHG Vent. Rate : 082 BPM Atrial Rate : 082 BPM P-R Int : 140 ms QRS Dur : 082 ms QT Int : 400 ms P-R-T Axes : 041 008 026 degrees QTc Int : 467 ms Normal sinus rhythm. Cannot rule out Inferior infarct , age undetermined Abnormal ECG When compared with ECG of 05-JAN-2017 12:12, (Unconfirmed) Sinus rhythm. has replaced Atrial fibrillation. Vent. rate has decreased BY 70 BPM Right bundle branch block is no longer present Minimal criteria for Inferior infarct are now present Confirmed by Kristin URIOSTEGUI, Patrick Neal ([id number]) on 01/06/2017 5:21:42 PM
[2017-01-06] MEDS: SYNTHROID PO SCH (08:51)
[2017-01-06] MEDS: FOLIC ACID PO SCH (08:53)
[2017-01-06] MEDS: ASPIRIN EC PO SCH (08:56)
[2017-01-06] MEDS: PERCOCET-10 PO PRN ×3 (08:57→21:00)
[2017-01-06] MEDS: ZOLOFT PO SCH (08:58)
[2017-01-06] MEDS: NEURONTIN PO SCH ×4 (08:58→20:40)
[2017-01-06] MEDS: COZAAR PO SCH (10:53)
[2017-01-06] MEDS: HYDROXYZINE PO SCH ×2 (10:54→18:14)
[2017-01-06] MEDS: TOPROL XL PO SCH (10:55)
[2017-01-06] MEDS: KLOR-CON PO SCH ×2 (10:56→20:40)
[2017-01-06] MEDS ORDERED: MAGNESIUM SULFATE 2 GM/S.W.I. 50 ML IV ONE (12:57)
[2017-01-06] MEDS ORDERED: POTASSIUM CHLORIDE 60 MEQ in NS 500 ML IV ONE (14:00)
--- NOTE | 2017-01-06 15:09 | ECHO REPORT ---
ORDER DATE: 01/06/2017 INDICATION FOR THE STUDY: Possible [place], shortness of breath, COPD. FINDINGS: 1. Right atrium is mildly enlarged at 4 cm. 2. Mild tricuspid regurgitation. RV systolic pressure is 40. 3. The right ventricle does appear somewhat enlarged but appears to have normal systolic function. 4. Trace pulmonic insufficiency. 5. Mild left atrial enlargement at 4.8 cm. 6. No mitral valve prolapse. There is mild to moderate mitral regurgitation. 7. Normal LV size, end-diastolic dimension of 4.4. Normal wall thicknesses with a posterior and interventricular septal wall thickness 1.1 and 1.0 cm respectively. There is likely normal LV systolic function. Endocardial borders are difficult to visualize. The estimated EF is greater than 55%. Segmental wall motion analysis is difficult to perform. 8. Aortic valve appears to open well. It appears trileaflet. No evidence of stenosis or insufficiency. 9. Aorta appears normal in visualized segments. 10. No pericardial effusion seen.
--- NOTE | 2017-01-06 15:37 | EKG Report ---
Test Performed on : 01/06/2017 2:23:13 PM Test Reason : dyspnea Blood Pressure : / mmHG Vent. Rate : 081 BPM Atrial Rate : 081 BPM P-R Int : 148 ms QRS Dur : 086 ms QT Int : 400 ms P-R-T Axes : 034 -19 -08 degrees QTc Int : 464 ms Sinus rhythm. with marked sinus arrhythmia. Possible Anterior infarct , age undetermined Abnormal ECG When compared with ECG of 05-JAN-2017 21:35, (Unconfirmed) Borderline criteria for Anterior infarct are now present Inverted T waves have replaced nonspecific T wave abnormality in Inferior leads Confirmed by Kristin URIOSTEGUI, Patrick Neal ([id number]) on 01/06/2017 5:25:03 PM
[2017-01-06] MEDS ORDERED: LASIX PO ONE (16:00)
[2017-01-06 17:11] LABS: ALLEN TEST YES; BE 11.5 mmoll (-3.0-3.0); BLOOD TYPE ARTERIAL; DRAW SITE R RADIAL; PO2(98.6) 62 mmHg (60-100); SAMPLE BLOOD; pH(98.6) 7.47 (7.35-7.45)
[2017-01-06 17:13] LABS: MODALITY BI PAP; PCO2(98.6) 51 mmHg (35-45)
[2017-01-06] MEDS: LOVENOX SUBQ SCH (17:30)
[2017-01-06] MEDS ORDERED: HYDROXYZINE PO PRN ×2 (18:10→18:41)
[2017-01-06] MEDS ORDERED: ZOSYN 3.375 GM/NS 50 ML IV SCH (18:15)
--- NOTE | 2017-01-06 19:35 | CONSULTATION ---
DATE OF CONSULTATION: 01/06/2017 CHIEF COMPLAINT: Dyspnea. HISTORY OF PRESENT ILLNESS: Ms. Colin is a 61-year-old female who presented to the hospital because of increasing dyspnea over the course of the preceding 48 hours. Apparently the patient had been to see a transport pilot about 6 days or 7 days prior to admission. The transport pilot, Dr. Le at [facility], diagnosed some sort of sinus infection and put her on Levaquin. She was supposed to finish Levaquin today. At any rate, over the course of the days, she appeared to be getting more short of breath and, on the day of admission she was extremely dyspneic. Her electrocardiogram at that time showed atrial fibrillation with a rapid response with diffuse ST-T abnormalities in multiple leads. Subsequent EKG done at 9:35 in the evening shows a more normal looking appearance of the EKG. She has a questionable Q wave in the inferior wall. A chest x-ray was done initially at the time of presentation, about 4:30 in the afternoon, and it shows pulmonary edema. Subsequently she had another chest x-ray at 6 a.m. this morning that shows diffuse bilateral infiltrates likely representing pulmonary edema. Of note, her blood work initially showed a pO2 of 47 and pCO2 of 46. Subsequently she has been put on a BiPAP system. The pO2 is 158, pCO2 is 37, pH is 7.56. Her initial potassium was 2.7, subsequently 2.9. Her CPK was initially noted at 63, then went up to 218, and subsequently 150. CK-MB fraction has been checked twice. It was 28.23 and 23.42 with index of 13 on both. Troponins are positive, initially 0.075, subsequently 0.414, 0.390, and 0.303. The patient's white count is normal right now. It was elevated on admission at 14,000. The patient has had an echocardiogram today that shows a moderate degree of mitral regurgitation with general preservation of the LV function, questionable hypokinesis of the basal inferior wall. The patient has a BiPAP system on board right now and she cannot talk too much. She is in distress. Her pro BNP level yesterday was 9756, which is significantly elevated. A couple of months ago she had one drawn that was in the 2600 range. The patient denies having any chest pain at this time, however, she complains of previous episodes of chest pain. PAST MEDICAL AND SURGICAL HISTORY: Her past history is positive for advanced COPD. She has been on home oxygen for a while. She had double pneumonia several months or even years ago and since then she has been on oxygen. She has had hyperlipidemia. She has chronic pain syndrome with significant back pain. She has an abdominal wall hernia. She has morbid obesity, anxiety, depression, osteopenia. This patient underwent prior cardiac evaluation performed by Dr. Araya on December 26. At that time they did a PET scan. It was reportedly abnormal as noted by Dr. 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 The patient was supposed to undergo back surgery for chronic disk disease and spinal stenosis. Surgical history includes cataract extraction, wrist surgery, appendectomy, cholecystectomy, hysterectomy, multiple lumbar spine surgeries in the past. SOCIAL HISTORY: She is . She has 2 children. Lives with . She has quit smoking a few months ago. She used to smoke 1 pack a day. She has limited ambulation. She walks with a walker. REVIEW OF SYSTEMS: Review of systems at this point is not obtainable. The patient is on a BiPAP system. However, from discussion with the , the main issues are her chronic pain, chronic limitation to ambulation, especially the right lower extremity because of the spinal stenosis. She had a toe amputated on the left side. She basically walks very little. She is also chronically short of breath and on oxygen all the time. MEDICATIONS: Her medications listed at this time included the followin. Vitamin D3. 2. Venlafaxine. 3. Zanaflex. 4. Sertraline. 5. Potassium chloride. 6. Oxycodone. 7. Omeprazole. 8. Movantik 25 daily. 9. Morphine sulfate/naltrexone/Embeda ER 60/2.4 twice daily. 10.Metoprolol ER 1 tablet daily. 11.Methocarbamol 750 twice daily. 12.Levothyroxine 25 mcg daily. 13.Hydroxyzine 25 twice a day. 14.Gabapentin 100 four times a day. 15.Lasix 40 mg daily. 16.Folic acid 1 mg daily. 17.Fluticasone 1 puff twice a day. 18.Atorvastatin 20 mg at bedtime. 19.Amoxicillin 875 every 12 hours. 20.Alprazolam 0.25 mg twice a day. 21.Albuterol inhaler. FAMILY HISTORY: Noncontributory for the purposes of this admission. Mother had CHF. ALLERGIES: She is allergic to codeine, Demerol, and fentanyl patch. PHYSICAL EXAMINATION: VITAL SIGNS: Today blood pressure is 107/79. Pulse 84. Temperature 98.4. Respirations 22. GENERAL: She is awake. She is in some distress. HEENT: Unremarkable. CHEST: Diminished breath sounds bilaterally. I do not hear wheezes. CARDIAC: Heart sounds are regular and rhythmic, tachycardic. No gallop or murmur noted. ABDOMEN: Obese with sort of herniation of the abdominal wall on the right side. No masses are noted. EXTREMITIES: Showed amputation of the left big toe. Good pulses distally. NEUROLOGIC: Follows commands. Moves all extremities. LABORATORY DATA: Sodium 147, potassium 2.9, BUN 12, creatinine 1.0. Hemoglobin 9.2, hematocrit 37.8. IMPRESSION: 1. Patient presenting with acute respiratory distress with evidence on x-ray of acute pulmonary edema. Her cardiac enzymes and her EKG suggest the presence of an acute myocardial infarction. This is probably an inferior wall non ST elevation myocardial infarction. The patient had an abnormal PET scan just recently suggesting that that would be the area at risk. 2. Advanced chronic obstructive pulmonary disease on long-term oxygen. 3. Chronic pain syndrome with spinal stenosis, limited functional capacity. 4. Episode of paroxysmal atrial fibrillation at the time of initial presentation that has converted to sinus rhythm. 5. Electrolyte disturbances including hypokalemia, hypomagnesemia, hypernatremia , etc. 6. She has also history of chronic iron-deficiency anemia. RECOMMENDATIONS: We will try to stabilize the cardiac status with diuretics, BiPAP system. Once the patient is absolutely stable, we will pursue cardiac catheterization. She is likely to have developed occlusion of the right coronary artery or one of its branches. She may require angioplasty. Further intervention will depend on her clinical course. My main concern is the possibility that she may have developed some sort of ischemic mitral regurgitation or even rupture of a papillary muscle which cannot be appreciated on the echo done today because of technical difficulties. However, that may have to be kept in mind. Should she become intubated for whatever reason, then I would pursue a transesophageal echocardiogram on her to determine the severity of the mitral regurgitation. Thank you again for the opportunity to participate in her evaluation. Best regards, LAKESHIA
[2017-01-06] MEDS: PROTONIX IV SCH (20:40)
[2017-01-06] MEDS: ZOSYN 3.375 GM/NS 50 ML IV SCH (20:40)
[2017-01-06] MEDS: LIPITOR PO SCH (20:40)
[2017-01-06] MEDS: SODIUM CHLORIDE 0.9% INJ SCH (20:40)
[2017-01-06 21:06] LABS: AGAP 17; BUN 15 mg/dL (8-22); CALCIUM 8.8 mg/dL (8.8-10.2); CHLORIDE 96 mmol/L (98-107); COSMO 290; POTASSIUM 2.7 mmol/L (3.5-5.1); SODIUM 144 mmol/L (136-145); TCO2 31 mmol/L (25-35)
[2017-01-06] MEDS ORDERED: POTASSIUM CHLORIDE 20% LIQUID PO ONE (23:36)
[2017-01-07] MEDS: PERCOCET-10 PO PRN (01:29)
[2017-01-07] MEDS ORDERED: AMIDATE ONE (01:55)
[2017-01-07] MEDS ORDERED: QUELICIN ONE (01:56)
[2017-01-07] MEDS ORDERED: DIPRIVAN 1% 100 ML ONE (02:09)
[2017-01-07] MEDS ORDERED: VERSED ONE ×2 (02:09→02:15)
[2017-01-07] MEDS: DUONEB (A & A) INH SCH ×4 (02:41→19:09)
[2017-01-07 03:26] LABS: ALLEN TEST YES; BE 9.6 mmoll (-3.0-3.0); BLOOD TYPE ARTERIAL; DRAW SITE L RADIAL; MODALITY VENTILATOR; O2(CT) 17.7 mL/dL (15.0-23.0); PO2(98.6) 108 mmHg (60-100); SAMPLE BLOOD; SAO2 98.8 % (95.0-100.0); SRATE 15 BPM; TVOL 500 mL; pH(98.6) 7.43 (7.35-7.45)
[2017-01-07 03:27] LABS: PCO2(98.6) 54 mmHg (35-45)
[2017-01-07] MEDS: ZOSYN 3.375 GM/NS 50 ML IV SCH ×4 (03:55→23:04)
[2017-01-07] MEDS: DIPRIVAN 1% 100 ML IV SCH ×8 (04:47→23:01)
[2017-01-07] MEDS: LOVENOX SUBQ SCH ×2 (05:09→18:08)
[2017-01-07] MEDS: SOLU-MEDROL IV SCH ×3 (05:09→20:08)
--- NOTE | 2017-01-07 06:11 | PROGRESS NOTE ---
DATE: 01/07/2017 SUBJECTIVE: Ms. Colin was placed on the ventilator last night around 2 a.m. The patient was very restless, hypoxemic, in respiratory distress. Post ventilator ABG did show improvement. Blood gas 7.43, pCO2 54, PO2 108. This was done with FiO2 100% and PEEP of 10. The patient is sedated, not able to give any history. No high-grade fever or chills. Blood pressure low normal. No diarrhea or vomiting. Patient admitted with pulmonary edema, respiratory distress. She ruled in for [place], chronic obstructive pulmonary disease exacerbation, acute on chronic respiratory failure. PHYSICAL EXAMINATION: Vital Signs: Her vital signs noted. Neck: Supple. No JVD. Lungs: Bibasilar crepitations. Occasional wheezing. The patient does have bilateral air entry present. CVS: S1 and S2 heard, regular. Abdomen: Soft, globular. Bowel sounds present. Extremities: No cyanosis, clubbing. No acute DVT. LUSTER REPAIRER: Patient is sedated. Uncooperative for detailed exam. LABORATORY DATA: The a.m. blood work is pending. The patient did have hypokalemia. We gave her some potassium yesterday. CONSIDERATION: 1. Acute on chronic respiratory failure, on mechanical ventilator. 2. Paroxysmal atrial fibrillation. Patient ruled in for myocardial infarction. 3. Pulmonary edema. 4. Hypothyroidism. 5. Hypokalemia. Core Measures Abstractor and examination grader following patient with us. 6. Morbid obesity. PLAN: The patient is on Lovenox. She was on beta margarita. Pulmonary toilet, IV antibiotics, steroid, Lasix. We will continue current treatment. Close observation. Overall plan discussed and prognosis discussed with her , and he is in agreement.
[2017-01-07 06:50] LABS: BASO% 0.1 % (0.0-0.8); EOS# 0.01 X1000 (0.0-0.7); EOS% 0.1 % (0.0-10.0); HEMATOCRIT 26.8 % (37.0-47.0); HEMOGLOBIN 8.7 g/dL (12.0-16.0); IMM GRAN# 0.08 X1000 (0.0-0.04); IMM GRAN% 0.7 % (0.0-0.5); LYMPH# 0.45 X1000 (1.2-3.4); LYMPH% 4.1 % (20.5-51.1); MANUAL DIFF NEEDED? YES; MCH 25.9 PG (27-31); MCHC 32.5 g/dL (33-37); MCV 79.8 FL (81-99); MONO# 0.58 X1000 (0.11-0.59); MONO% 5.3 % (1.7-9.3); MPV 10.3 FL (7.4-10.4); NEUT% 89.7 % (42.2-75.2); PLT 234 X1000 (130-400); RBC 3.36 XMIL (4.2-5.4)
--- NOTE | 2017-01-07 06:57 | EKG Report ---
Test Performed on : 01/07/2017 05:55:29 AM Test Reason : dyspnea, pulm edema, hx afib Blood Pressure : / mmHG Vent. Rate : 072 BPM Atrial Rate : 072 BPM P-R Int : 140 ms QRS Dur : 084 ms QT Int : 438 ms P-R-T Axes : 041 006 -05 degrees QTc Int : 479 ms Normal sinus rhythm. Normal ECG When compared with ECG of 06-JAN-2017 14:23, No significant change was found Confirmed by Kristin URIOSTEGUI, Patrick Neal ([id number]) on 01/08/2017 9:27:37 AM
[2017-01-07 07:03] LABS: MAGNESIUM 2.4 mg/dL (1.5-2.7)
[2017-01-07 07:20] LABS: ALBUMIN 3.2 g/dL (3.5-5.0); CALCIUM 8.6 mg/dL (8.8-10.2); POTASSIUM 3.3 mmol/L (3.5-5.1); TOTAL BILIRUBIN 0.33 mg/dL (0.20-1.00); TOTAL PROTEIN 5.9 g/dL (6.3-8.3)
[2017-01-07] MEDS: MOVANTIK PO SCH (07:20)
[2017-01-07] MEDS: ADVAIR 250/50 DISKUS INH SCH ×2 (07:37→19:09)
--- NOTE | 2017-01-07 08:15 | Diag Imaging Result Document ---
PROCEDURE NAME: CHEST-PORTABLE - 01/07/2017 SINGLE FRONTAL RADIOGRAPH OF THE CHEST: COMPARISON: 01/07/2017. FINDINGS: ET tube is in stable position a couple centimeters superior to the diego. Diffuse infiltrates are unchanged most compatible with pulmonary edema. There is evidence of pulmonary venous congestion. Inspiration is suboptimal. No new consolidations are identified. Cardiac silhouette is stable. IMPRESSION: Stable chest.
[2017-01-07] MEDS ORDERED: NS 250 ML ONE ×2 (08:29→09:50)
[2017-01-07 08:32] LABS: PROTIME 12.5 Seconds (9.2-11.7)
--- NOTE | 2017-01-07 08:32 | Diag Imaging Result Document ---
PROCEDURE NAME: CHEST-PORTABLE - 01/07/2017 SINGLE FRONTAL RADIOGRAPH OF THE CHEST: COMPARISON: 01/06/2017. FINDINGS: There is a newly placed ET tube. The tip projects over the trachea and just barely above the diego. The tip projects over the T5-6 level. Inspiration is suboptimal. There are diffuse infiltrates throughout both lungs that are essentially stable suggesting pulmonary edema plus or minus pneumonia. No new consolidations are identified. Cardiac silhouette is stable. IMPRESSION: Interval intubation as described. Otherwise, stable chest.
[2017-01-07 08:33] LABS: INR 1.24
[2017-01-07 08:42] LABS: LYMPHS 1 % (21-51); MONO 1 % (1-9)
[2017-01-07] MEDS: NEURONTIN PO SCH ×4 (09:18→20:08)
--- NOTE | 2017-01-07 09:30 | PROGRESS NOTE ---
DATE: 01/07/2017 CHIEF COMPLAINT: Shortness of breath. SUBJECTIVE: Mrs. Colin was intubated yesterday. She is on a ventilator right now. Her chest x- ray at 5:42 this morning reported by Dr. Goode indicates pulmonary edema, venous congestion. They have done an EKG this morning. It shows sinus rhythm with very subtle Q wave in the inferior leads. The patient is sedated. is at the bedside. OBJECTIVE: Vital signs: Blood pressure is 121/79, temperature 98.6, pulse 78, respirations 18. General: She is sedated. HEENT: Unremarkable. Chest: Symmetrical breath sounds. Cardiac: Heart sounds are regular and rhythmic. No definite gallop or murmur is noted. Abdomen: Nontender, slightly distended. Bowel sounds diminished. Extremities: Pulses are good in the lower extremities. She is warm. Neurological: She is sedated. BLOOD WORK TODAY: White count 10,970, hemoglobin 8.7, hematocrit 26.8. Her platelet count is 234,000. Her pH is 7.43, pO2 108, pCO2 54. Sodium 145, potassium 3.3, BUN 21, creatinine 1.1. Her CK went down to 92. Troponin went up to 0.403. ProBNP is up to 12,474. IMPRESSION: 1. Patient has suffered a non-Q-wave myocardial infarction complicated with atrial fibrillation and acute pulmonary edema. Her echocardiogram reveals normal left ventricular systolic function. Therefore, she has acute diastolic heart failure. The possibilities include that she may have suffered acute ischemic mitral regurgitation versus a rupture of papillary muscle. 2. Patient with chronic pain syndrome. 3. Advanced chronic obstructive pulmonary disease. RECOMMENDATION: At this point in time, we will continue supportive therapy, and we will arrange for transesophageal echocardiogram when the patient's condition permits. The benefits, risks, complications of transesophageal echocardiogram were discussed with the patient's . The understood and requested to go ahead. We will set it up first thing in the morning. At this point in time, we will continue with other supportive measures. Thank you again for the opportunity to participate in her evaluation. Best regards. Will follow her along with you.
--- NOTE | 2017-01-07 10:03 | CONSULTATION ---
DATE OF CONSULTATION: 01/07/2017 REFERRING PHYSICIAN: Dr. Gomez. CHIEF COMPLAINT: Dyspnea. HISTORY OF PRESENT ILLNESS: This is a 61-year-old, female with a past medical history of COPD, chronic respiratory failure on home oxygen, hypothyroidism, hyperlipidemia, gastritis, chronic back pain, morbid obesity, situational anxiety and depression, and hypertension that presented to the hospital initially with complaints of dyspnea. She was also found to be in atrial fibrillation with rapid ventricular response which was eventually converted to sinus rhythm. She was, at some point, intubated and is in the ICU on mechanical ventilation. REVIEW OF SYSTEMS: Unable to obtain at this time. PAST MEDICAL HISTORY: As mentioned in the HPI, otherwise noncontributory. ALLERGIES: Codeine, fentanyl patch, Demerol. SOCIAL HISTORY: The patient is . Lives at home with her . She apparently quit smoking per medical records and denied alcohol or substance abuse. FAMILY HISTORY: Notable for CHF. PHYSICAL EXAMINATION: Vital Signs: Temperature 97.9, heart rate 71, respiratory rate 15, blood pressure 105/71, oxygen saturation 100%. General: Lying in bed, intubated. HEENT: Normocephalic and atraumatic. Cardiovascular: S1-S2 present. Chest: Reduced entry with occasional wheezes. Abdomen: Soft. Bowel sounds present. Extremities: Distal pulses palpable. Trace edema. Neurologic: Sedated. LABS AND INVESTIGATIONS: WBCs 10.97, RBCs 3.36, hemoglobin 8.7, hematocrit 26.8 , platelet count 234,000. Sodium 145, potassium 3.3, chloride 98, CO2 32, anion gap 15, BUN 21, creatinine 1.1, and glucose 147. Blood gas reveals a pH of 7.43, PCO2 of 54, PO2 of 108, HC03 of 32.4, base excess 9.6, saturated oxygen 98. Chest x-ray performed on 01/07/2017 shows a stable chest. ASSESSMENT AND PLAN: This is a 61-year-old, female with a past medical history as mentioned in the history of present illness, who presented to the hospital with complaints of dyspnea and was found to be in atrial fibrillation with rapid ventricular response that was eventually converted to sinus rhythm. CHF, UT and respiratory failure. She apparently became more dyspneic and was placed on a ventilator in the intensive care unit. Continue mechanical ventilations at this time as well as inhaled bronchodilators, steroids, antibiotics, gastrointestinal and deep venous thrombosis prophylaxis, and diuresis as well. Further recommendations pending diagnostic studies. Thank you for the courtesy of this consult. Dictated by BENJAMIN Urrutia for Alana Molina MD MTDD
[2017-01-07] MEDS: POTASSIUM CHLORIDE 20 MEQ/SWI 100 ML IV SCH ×2 (10:35→12:01)
[2017-01-07] MEDS: TOPROL XL PO SCH ×2 (10:52→11:40)
[2017-01-07] MEDS: COZAAR PO SCH (10:53)
--- NOTE | 2017-01-07 11:30 | Diag Imaging Result Document ---
PROCEDURE NAME: CHEST/ABD TUBE PLACEMENT - 01/07/2017 SINGLE FRONTAL RADIOGRAPH OF THE LOWER CHEST AND UPPER ABDOMEN: COMPARISON: 01/07/2017. FINDINGS: There is a newly placed NG tube. The tip projects well below the diaphragm and is assumed to be in the pyloric region of the stomach. Very limited views of the lung bases are probably stable. IMPRESSION: Interval placement of NG tube in the expected position as described.
[2017-01-07] MEDS: ZOLOFT PO SCH (11:38)
[2017-01-07] MEDS: KLOR-CON PO SCH ×2 (11:39→20:08)
[2017-01-07] MEDS: ASPIRIN EC PO SCH (11:40)
[2017-01-07] MEDS: FOLIC ACID PO SCH (11:40)
[2017-01-07] MEDS: SYNTHROID PO SCH (11:41)
[2017-01-07] MEDS: LASIX IV SCH (12:08)
[2017-01-07 18:24] LABS: CALCIUM 8.1 mg/dL (8.8-10.2); MAGNESIUM 2.2 mg/dL (1.5-2.7); POTASSIUM 3.5 mmol/L (3.5-5.1)
[2017-01-07] MEDS: MORPHINE IV PRN (18:47)
[2017-01-07] MEDS: SODIUM CHLORIDE 0.9% INJ SCH (20:08)
[2017-01-07] MEDS: LIPITOR PO SCH (20:08)
[2017-01-07] MEDS: PROTONIX IV SCH (20:08)
[2017-01-08] MEDS: MORPHINE IV PRN ×3 (00:22→09:34)
[2017-01-08] MEDS: LASIX IV SCH (00:22)
[2017-01-08] MEDS: DIPRIVAN 1% 100 ML IV SCH ×3 (01:18→05:42)
[2017-01-08] MEDS: DUONEB (A & A) INH SCH ×2 (02:44→09:30)
[2017-01-08] MEDS: LOVENOX SUBQ SCH (03:43)
[2017-01-08] MEDS: SOLU-MEDROL IV SCH (04:00)
[2017-01-08] MEDS: ZOSYN 3.375 GM/NS 50 ML IV SCH (04:00)
[2017-01-08 04:02] LABS: MANUAL DIFF NEEDED? NO
[2017-01-08 04:06] LABS: BASO% 0.1 % (0.0-0.8); HEMATOCRIT 27.7 % (37.0-47.0); IMM GRAN% 1.8 % (0.0-0.5); LYMPH# 0.73 X1000 (1.2-3.4); LYMPH% 6.5 % (20.5-51.1); MCH 26.4 PG (27-31); MCHC 32.5 g/dL (33-37); MCV 81.2 FL (81-99); MONO# 0.84 X1000 (0.11-0.59); MONO% 7.5 % (1.7-9.3); MPV 10.3 FL (7.4-10.4); NEUT% 84.1 % (42.2-75.2); PLT 226 X1000 (130-400); RBC 3.41 XMIL (4.2-5.4)
[2017-01-08 04:31] LABS: ALLEN TEST YES; BE 11.7 mmoll (-3.0-3.0); BLOOD TYPE ARTERIAL; DRAW SITE R RADIAL; METHB 1.2 % (0.0-1.5); O2(CT) 15.7 mL/dL (15.0-23.0); PO2(98.6) 183 mmHg (60-100); SAMPLE BLOOD; SRATE 15 BPM; THB 11.3 g/dL (11.5-17.4); TVOL 500 mL; pH(98.6) 7.45 (7.35-7.45)
[2017-01-08 04:32] LABS: MODALITY VENTILATOR; PCO2(98.6) 54 mmHg (35-45)
[2017-01-08 04:32] LABS: ALBUMIN 3.1 g/dL (3.5-5.0); CALCIUM 8.6 mg/dL (8.8-10.2); POTASSIUM 3.6 mmol/L (3.5-5.1); TOTAL BILIRUBIN 0.3 mg/dL (0.20-1.00); TOTAL PROTEIN 5.9 g/dL (6.3-8.3)
[2017-01-08] MEDS: MOVANTIK PO SCH (06:12)
--- NOTE | 2017-01-08 06:26 | PROGRESS NOTE ---
DATE: 01/08/2017 SUBJECTIVE: Ms. Colin is on vent. Patient is sedated, but at times, patient wakes up and needs more sedation even with a higher dose of propofol. Blood pressure at times low. Patient admitted with acute pulmonary edema, respiratory failure, COPD exacerbation. Covering Machine Tender entertaining possibility of possible papillary muscle rupture. He is planning to do a transesophageal echocardiography today. Overall prognosis fair to guarded. Family is aware of prognosis. OBJECTIVE: Vital Signs: Blood pressure at times low-normal. Lungs: Decreased air entry both bases. CVS: S1 and S2 heard. Regular. Abdomen: Soft, globular. Bowel sounds present. Extremities: No cyanosis, clubbing, edema. OFFBEARER SEWER PIPE: Patient is sedated. LAB DATA: Done today, hemoglobin 9, hematocrit 27.7. WBC count 11.26. Platelet count 226,000. Blood gas pH 7.45, pCO2 54, PO2 183, potassium 3.6, BUN 31, creatinine 1.1. Troponin checked last night was 0.424. CONSIDERATION: 1. Acute non-Q-wave myocardial infarction. 2. Respiratory failure. 3. Pulmonary edema. 4. Paroxysmal atrial fibrillation. 5. Chronic obstructive pulmonary disease. 6. Leukocytosis. 7. Chronic pain syndrome. PLAN: Continue supportive care. Ventilatory support. Transesophageal echocardiography. Appreciate Cardiology and Pulmonary help managing this patient.
[2017-01-08] MEDS ORDERED: VERSED ONE (07:36)
--- NOTE | 2017-01-08 07:44 | Diag Imaging Result Document ---
PROCEDURE NAME: CHEST-PORTABLE - 01/07/2017 PORTABLE CHEST X-RAY AT 1800 HOURS: COMPARISON: 0550 hours. FINDINGS: Stable endotracheal tube. There is a nasogastric tube in good position. There is a left PICC line with the catheter tip at the lower SVC. Stable low lung volumes. Grossly stable cardiomegaly and diffuse bilateral interstitial infiltrates/edema. IMPRESSION: Good position of lines and tubes. Stable cardiomegaly and diffuse infiltrates compatible with pulmonary edema.
[2017-01-08 08:33] VITALS: BP 93/61
[2017-01-08] MEDS: ASPIRIN EC PO SCH (08:41)
[2017-01-08] MEDS: COZAAR PO SCH (08:41)
[2017-01-08] MEDS: FOLIC ACID PO SCH (08:41)
[2017-01-08] MEDS: ZOLOFT PO SCH (08:42)
[2017-01-08] MEDS: TOPROL XL PO SCH (08:42)
[2017-01-08] MEDS: SYNTHROID PO SCH (08:42)
[2017-01-08] MEDS: NEURONTIN PO SCH (08:42)
[2017-01-08] MEDS ORDERED: KLOR-CON PO SCH (09:00)
--- NOTE | 2017-01-08 09:05 | Diag Imaging Result Document ---
PROCEDURE NAME: CHEST-PORTABLE - 01/08/2017 PORTABLE CHEST X-RAY, 01/08/2017: COMPARISON: 01/07/2017. FINDINGS: Stable endotracheal tube, nasogastric tube, and left PICC line in good position. Stable cardiomegaly. Stable diffuse bilateral fine interstitial infiltrates compatible with pulmonary edema. Stable body wall edema. IMPRESSION: No change from prior.
--- NOTE | 2017-01-08 09:18 | ECHO REPORT ---
ORDER DATE: 01/08/2017 PROCEDURE: Transesophageal echocardiogram. INTERPRETING PHYSICIAN: Dr. Casey PATIENT OF: Dr. Gomez. REASON FOR TRANSESOPHAGEAL ECHOCARDIOGRAM: Patient with acute respiratory failure, abnormal transthoracic echo suspicious for significant mitral regurgitation. The patient has suffered non- ST-elevation myocardial infarction. Rupture of papillary muscle is suspected. DESCRIPTION: The patient was intubated in the ICU and she was on IV propofol per ICU protocol for sedation. Her vital signs were stable. We anesthetized her throat with Hurricaine, and we gave her 3 mg of Versed IV push. Then the esophagus was intubated without difficulty. Multiple views of the cardiac structures were obtained. The following is a summary of the anatomical findings. SUMMARY OF THE ANATOMICAL FINDINGS: 1. The left atrium appears to be grossly normal. The left atrial appendage was also normal. The interatrial septum is intact. There is prominent lipomatosis of the interatrial septum. 2. The right atrium appears to be normal. There is a PICC line visible within the superior vena cava. Agitated saline was injected. There was no evidence of shunting of bubble from right to left. 3. The tricuspid valve looks normal. Color flow mapping unremarkable. 4. The right ventricle appears to be normal. 5. The pulmonic valve appears to be grossly normal. 6. The aortic valve has 3 cusps. They open normally. Color flow mapping unremarkable. The aortic root was unremarkable. 7. The left ventricle showed normal function. Ejection fraction 55%. 8. No definite wall motion abnormality appears to be present. 9. The mitral valve is abnormal. I believe there is an abnormal thickening located at the level of the anterior leaflet of the mitral valve during systole. This probably represents the head of a papillary muscle probably coming from the posterior wall. 10.There is wide-open severe mitral regurgitation. 11.The pulsed wave Doppler of pulmonary venous flow on the left side showed normal flow. We could not identify the pulmonary venous flow on the right side very well. The pulsed wave Doppler of mitral inflow showed normal ratio E/A. 12.The descending thoracic aorta showed scattered atherosclerotic plaque. 13.There is no pericardial effusion. SUMMARY: In summary, this echocardiogram is abnormal. It shows severe mitral regurgitation with protrusion of a thick thumb-like structure during systole which measures 0.6 cm or 6 mm in longest dimension and 5 mm in width. This would be consistent with probably a piece of papillary muscle that is prolapsing. It appears to be attached to the anterior leaflet. There is no other significant valvular abnormality. The patient requires surgical management. We will make the appropriate contacts to get her transferred to a hospital where they can proceed with open heart surgery and replacement or repair of this valve. Dr. Gomez was notified of the findings and the family was also notified.
[2017-01-08] MEDS: ADVAIR 250/50 DISKUS INH SCH (09:32)
--- NOTE | 2017-01-08 09:54 | Diag Imaging Result Document ---
PROCEDURE NAME: CHEST/ABD TUBE PLACEMENT - 01/08/2017 ABDOMEN AT 0940 HOURS: COMPARISON: 0525 hours. FINDINGS: There is a nasogastric tube with the tip in the stomach. The configuration is identical to the prior exam. IMPRESSION: Nasogastric tube in the stomach.
--- NOTE | 2017-01-09 16:10 | DISCHARGE SUMMARY ---
ADMISSION DATE: 01/05/2017 DISCHARGE DATE: 01/08/2017 FINAL DISCHARGE DIAGNOSES: 1. Acute non-ST elevation myocardial infarction. 2. Acute mitral regurgitation. 3. Acute respiratory failure. 4. Pulmonary edema. 5. Chronic obstructive pulmonary disease exacerbation. 6. Morbid obesity. 7. Chronic pain syndrome. 8. Atrial fibrillation with rapid ventricular. HOSPITAL COURSE: Ms. Yanira Colin is a 61-year-old white female patient admitted with shortness of breath which was gradually progressive, some chest tightness. Patient was hypoxemic and found to have atrial fibrillation with rapid ventricular response. The patient found to have new onset pulmonary edema. She ruled in for LA. Her initial EKG did reveal ST-T wave changes suggestive of subendocardial injury. The patient was admitted to ICU. The patient was given steroids, IV antibiotics, pulmonary toilet and placed on BiPAP. Cardiology consultation obtained. As her cardiac isoenzymes were positive, the patient underwent transesophageal echocardiography. The deep submergence vehicle operator entertained possibility of papillary muscle rupture and acute mitral regurgitation requiring surgical intervention. The patient was transferred to tertiary care center. The patient was acutely ill. I appreciate Dr. Casey's help managing this patient. Overall plan and prognosis discussed with family. Her chest x-ray done on the day of discharge revealed diffuse stable bilateral interstitial infiltrate compatible with pulmonary edema, stable body wall edema. Transesophageal echocardiography did reveal severe mitral regurgitation with possibility of papillary muscle rupture. The patient also had a Pulmonary consultation done with Dr. Molina. LAB DATA: Initial proBNP was 12,474, repeat was 9,190. Blood culture no growth after 48 hours. The patient did have hypokalemia. Last potassium was 3.6, BUN 31, creatinine 1.1. Magnesium was 2.2. Blood gas done on January 06: pH 7.45, pCO2 54, PO2 was 183, PT/INR 1.24. Hemoglobin 9, hematocrit 27.7, WBC count 11.26, platelet count 226,000. DISPOSITION: The patient was transferred to [facility].
[2017-01-20 11:19] LABS: BLOOD TYPE ARTERIAL; SAMPLE BLOOD
== END 2017-01-08 10:04 | disposition short-term general hospital (02) | DRG 208 ==
LOC: EDBD → ED 12:07 → EDIPHOLD 15:55 → UNDOADMIN 15:55 → ICU 16:49
PROVIDERS: ADMIT Internal Medicine; ATTEND Internal Medicine
PROC: 5A1945Z Respiratory Ventilation, 24-96 Consecutive Hours (ICD-10-PCS; 2017-01-07)
PROC: 02HV33Z Insertion of Infusion Device into Superior Vena Cava, Percutaneous Approach (ICD-10-PCS; 2017-01-07)
PROC: 0BH17EZ Insertion of Endotracheal Airway into Trachea, Via Natural or Artificial Opening (ICD-10-PCS; 2017-01-07)
PROC: B24BZZ4 Ultrasonography of Heart with Aorta, Transesophageal (ICD-10-PCS; principal; 2017-01-08)
DX: J96.21 Acute and chronic respiratory failure with hypoxia (principal); I21.4 Non-ST elevation (NSTEMI) myocardial infarction; I50.33 Acute on chronic diastolic (congestive) heart failure; J44.1 Chronic obstructive pulmonary disease with (acute) exacerbation; E87.0 Hyperosmolality and hypernatremia; I27.2 Other secondary pulmonary hypertension; E83.42 Hypomagnesemia; Z99.81 Dependence on supplemental oxygen; I11.0 Hypertensive heart disease with heart failure; I48.0 Paroxysmal atrial fibrillation; I34.0 Nonrheumatic mitral (valve) insufficiency; D50.9 Iron deficiency anemia, unspecified; E87.6 Hypokalemia; E03.9 Hypothyroidism, unspecified; E78.5 Hyperlipidemia, unspecified; K43.9 Ventral hernia without obstruction or gangrene; K59.09 Other constipation; M48.00 Spinal stenosis, site unspecified; M85.80 Other specified disorders of bone density and structure, unspecified site; M81.0 Age-related osteoporosis without current pathological fracture; G89.4 Chronic pain syndrome; F41.9 Anxiety disorder, unspecified; F32.9 Major depressive disorder, single episode, unspecified; E66.01 Morbid (severe) obesity due to excess calories; Z79.899 Other long term (current) drug therapy; Z79.82 Long term (current) use of aspirin; Z89.422 Acquired absence of other left toe(s); Z81.2 Family history of tobacco abuse and dependence
CPT/HCPCS: 31500; 36569; 51702; 71010; 74000; 80048; 80053; 80061; 81001; 82550; 82553; 82805; 83036; 83735; 83880; 84100; 84436; 84443; 84481; 84484; 85025; 85379; 85610; 85651; 85730; 86140; 87040; 87070; 87205; 89220; 93005; 93010; 93306; 93312; 94002; 94003; 94640; 94660; 94760; 94761; 94762; 96365; 96366; 96368; 96375; C9113; J0330; J1650; J1940; J2250; J2270; J2543; J2930; J3370; J3475; J3480; J7030; J7040; J7050; 99285-25; S0164

== ENCOUNTER 2017-05-11 19:12 | Inpatient (IN) ==
[2017-05-11 20:04] LABS: ALLEN TEST YES; BE 1.3 mmoll (-3.0-3.0); BLOOD TYPE ARTERIAL; DRAW SITE R BRACHIAL; O2(CT) 14.6 mL/dL (15.0-23.0); PO2(98.6) 95 mmHg (60-100); SAMPLE BLOOD; SAO2 98.9 % (95.0-100.0); THB 10.7 g/dL (11.5-17.4); pH(98.6) 7.24 (7.35-7.45)
--- NOTE | 2017-05-11 20:05 | Diag Imaging Result Doc PS360 ---
CHEST-PORTABLE - 05/11/2017 INDICATION: AMS TECHNIQUE: COMPARISON: 01/08/2017 FINDINGS: Stable critically low lung volumes. There is cardiomegaly and pulmonary vascular congestion. No definite infiltrates. Stable fusion rods throughout the thoracic spine. IMPRESSION: Nonspecific findings. Electronically signed by George Rodriguez 05/11/2017 8:02 PM
[2017-05-11 20:06] LABS: PCO2(98.6) 70 mmHg (35-45)
[2017-05-11 20:07] LABS: MODALITY CANNULA
--- NOTE | 2017-05-11 20:26 | PROVIDER DOCUMENTATION ---
HPI-Fever - General Chief Complaint: Altered Mental Status Stated Complaint: AMS Time Seen by Provider: 05/11/17 20:11 Allergies/Adverse Reactions: Patient Allergies Allergy/AdvReac Type Severity Reaction Status Date / Time codeine Allergy Unknown Unknown Verified 05/11/17 19:56 fentanyl Allergy Unknown Unknown Verified 05/11/17 19:56 meperidine HCl * Allergy Unknown Unknown Verified 05/11/17 19:56 [From Demerol] Home Medications: Home Medication List Medication Instructions Recorded Confirmed Last Taken Type Morphine E.r. [Ms Contin] 15 mg PO TID 05/11/17 05/11/17 05/10/17 21:00 History Tizanidine HCl [Zanaflex] 4 mg PO TID 05/11/17 05/11/17 Unknown History Past History - Adult - PAST MEDICAL HISTORY-ADULT Major Childhood Illnesses: reports: denies history Cardiovascular: reports: hyperlipidemia Respiratory: reports: COPD Gastrointestinal: reports: denies history Obstetrical/Gynecological: reports: denies history Genitourinary: reports: denies history Musculoskeletal: reports: arthritis, chronic pain, intervertebral disc disease, neck/back injury, other fractures, orthopedic injury, osteoporosis, spinal fracture Neurological: reports: denies history Endocrine/Immune: reports: thyroid disorder Other Conditions: reports: denies history - PRIOR SURGERIES/PROCEDURES Surgical/Procedure History: reports: bowel surgery, orthopedic (extremity), back /neck - IMMUNIZATION STATUS Childhood Immunizations: See Nurse Assessment Flu Vaccine: See Nurse Assessment - FAMILY HISTORY Family History: reviewed, not pertinent Progress - PLAN OF CARE/RESULTS Progress/Plan/Lab Results: Vital Signs - 8 hr 05/11/17 19:15 05/11/17 20:06 Temperature 103.2 F H Pulse Rate 119 H 119 H Respiratory Rate 22 20 Blood Pressure 103/72 101/55 O2 Sat by Pulse Oximetry 100 100 Laboratory Results - last 24 hr 05/11/17 19:58 Specimen Type ARTERIAL Sample Site R BRACHIAL pH 7.24 L pCO2 70 H* pO2 95 HCO3 25.9 Base Excess 1.3 Oxyhemoglobin 95.9 ABG O2 Sat (Calculated) 14.6 L ABG O2 Saturation 98.9 ABG Carboxyhemoglobin 2.00 ABG Methemoglobin 1.0 Patrick Test YES A-a O2 Difference 131.0 Total Hemoglobin 10.7 L Lactate 0.70 Liter Flow 6.0 Blood Gas Modality CANNULA FiO2 % 44.0 Orders Category Date Time Status Cardiac Monitoring DIRECTED Care 05/11/17 19:31 Active Finger Stick Blood Sugar (ED) DIRECTED Care 05/11/17 19:31 Completed Oxygen Therapy- ED Nursing DIRECTED Care 05/11/17 19:31 Active Saline Loc NOW Care 05/11/17 19:31 Active CHEST-PORTABLE [RAD] Stat Exams 05/11/17 19:31 Completed HEAD W/O CONTRAST [CT] Stat Exams 05/11/17 20:04 Ordered ABG [RESP] Routine Lab 05/11/17 19:58 Completed ALCOHOL BLOOD Stat Lab 05/11/17 19:55 Received BLOOD CULTURE [BLDCUL] Stat Lab 05/11/17 19:50 Results CBC WITH ELECTRONIC DIFF [HEME] Stat Lab 05/11/17 19:55 Results CK PROFILE [SP CHEM] Stat Lab 05/11/17 19:55 Received COMPREHENSIVE METABOLIC PANEL [CHEM] Stat Lab 05/11/17 19:55 Received LACTATE, PLASMA [CHEM] Stat Lab 05/11/17 19:55 Ordered PROTIME WITH INR [COAG] Stat Lab 05/11/17 19:55 Received PTT [COAG] Stat Lab 05/11/17 19:55 Received TROPONIN T Stat Lab 05/11/17 19:55 Received URINALYSIS W/POSS RFLX CULT-1 [URINALYSIS] Stat Lab 05/11/17 19:31 Uncollected URINE DRUG SCREEN Stat Lab 05/11/17 19:31 Uncollected Pulse Oximetry Stat Oth 05/11/17 19:31 Active EKG [EKG] Stat Ther 05/11/17 19:31 Ordered Result Diagrams: 05/11/17 19:55 - XRAY 1 XRAY Study: Chest Impression: Abnormal, See EMR Report XRAY Interpretation: LOW LUNG VOLUMES.-DR. DUMAS
[2017-05-11] MEDS ORDERED: NS 1,000 ML IV ONE ×2 (20:27→23:12)
[2017-05-11 20:31] LABS: INR 1.02; PROTIME 10.7 Seconds (9.2-11.7); PTT 26.7 Seconds (22.0-36.0)
[2017-05-11 20:32] LABS: BASO% 0.2 % (0.0-0.8); EOS# 0.12 X1000 (0.0-0.7); HEMOGLOBIN 10.6 g/dL (12.0-16.0); IMM GRAN# 0.03 X1000 (0.0-0.04); IMM GRAN% 0.3 % (0.0-0.5); LYMPH# 0.44 X1000 (1.2-3.4); LYMPH% 3.8 % (20.5-51.1); MANUAL DIFF NEEDED? NO; MCH 29.4 PG (27-31); MCHC 34.2 g/dL (33-37); MCV 86.1 FL (81-99); MONO# 0.88 X1000 (0.11-0.59); MONO% 7.5 % (1.7-9.3); MPV 11.6 FL (7.4-10.4); NEUT% 87.2 % (42.2-75.2); PLT 208 X1000 (130-400)
--- NOTE | 2017-05-11 20:48 | Diag Imaging Result Doc PS360 ---
HEAD W/O CONTRAST - 05/11/2017 INDICATION: ams TECHNIQUE: A CT dose reduction protocol was used. COMPARISON: 10/31/2016 FINDINGS: The ventricles and sulci are normal in size and contour. No intracranial mass or hemorrhage. The skull is intact. The sinuses mastoids and middle ears are clear. IMPRESSION: Negative exam. Electronically signed by George Rodriguez 05/11/2017 8:45 PM
[2017-05-11 20:53] LABS: ALBUMIN 4.2 g/dL (3.5-5.0); CALCIUM 8.9 mg/dL (8.8-10.2); POTASSIUM 4.8 mmol/L (3.5-5.1); TOTAL BILIRUBIN 0.62 mg/dL (0.20-1.00); TOTAL PROTEIN 6.7 g/dL (6.3-8.3)
[2017-05-11 21:00] LABS: URINE CULTURE NEEDED? NO; URINE MICRO REVIEW NEEDED? NO; URINE SOURCE CATH
[2017-05-11 21:04] LABS: BILIRUBIN URINE NEGATIVE (NEGATIVE); BLOOD URINE NEGATIVE (NEGATIVE); COLOR YELLOW; GLUCOSE URINE NEGATIVE (NEGATIVE); LEUKOCYTES URINE NEGATIVE (NEGATIVE); NITRITE URINE NEGATIVE (NEGATIVE); PH URINE 5.5; PROTEIN URINE TRACE mg/dL (NEGATIVE); SP GRAVITY URINE 1.011; TURBIDITY URINE CLEAR (CLEAR); UROBILINOGEN URINE NORMAL (NORMAL)
[2017-05-11 21:05] LABS: UR EPITHELIAL CELLS <10 /HPF (<10); URINE BACTERIA NEGATIVE /HPF; URINE RBC <10 /HPF (<10); URINE WBC <10 /HPF (<10)
[2017-05-11 21:22] LABS: UR AMPHETAMINES QUAL NONE DETECTED (NONE DETECT); UR BARBITUATES QUAL NONE DETECTED (NONE DETECT); UR BENZODIAZEPIN QUAL PRESUMPTIVE POSITIVE (NONE DETECT); UR CANNABINOIDS QUAL NONE DETECTED (NONE DETECT); UR COCAINE QUAL NONE DETECTED (NONE DETECT); UR METHADONE QUAL NONE DETECTED (NONE DETECT); UR OPIATES QUAL PRESUMPTIVE POSITIVE (NONE DETECT); UR OXYCODONE QUAL NONE DETECTED (NONE DETECT); UR PCP QUAL NONE DETECTED (NONE DETECT)
[2017-05-11] MEDS ORDERED: VANCOMYCIN 1,800 MG in NS 250 ML IV ONE (23:00)
[2017-05-11] MEDS ORDERED: LEVAQUIN 750 MG/D5W 750 MG/150 ML IVPB IV SCH (23:15)
[2017-05-11] MEDS ORDERED: VANCOMYCIN IV PER PHARMACY MISC SCH (23:15)
[2017-05-11] MEDS: ZOSYN 3.375 GM/NS 3.375 GM/50 ML IVPB IV SCH (23:28)
[2017-05-12] MEDS ORDERED: NS NEB INH SCH (03:07)
[2017-05-12] MEDS ORDERED: NS 1,000 ML IV ONE (03:07)
[2017-05-12] MEDS: LOVENOX SUBQ SCH (03:46)
[2017-05-12] MEDS: NEXIUM IV SCH (04:02)
[2017-05-12] MEDS: SODIUM CHLORIDE 0.9% INJ SCH (04:03)
[2017-05-12] MEDS ORDERED: ATIVAN ONE (04:22)
[2017-05-12] MEDS ORDERED: ATIVAN IV ONE (04:48)
[2017-05-12] MEDS: ZOSYN 3.375 GM/NS 3.375 GM/50 ML IVPB IV SCH (06:00)
[2017-05-12 06:08] LABS: ALLEN TEST YES; BE 1.5 mmoll (-3.0-3.0); BLOOD TYPE ARTERIAL; DRAW SITE R RADIAL; METHB 0.9 % (0.0-1.5); O2(CT) 11.3 mL/dL (15.0-23.0); PO2(98.6) 98 mmHg (60-100); SAMPLE BLOOD; SAO2 98.8 % (95.0-100.0); THB 8.2 g/dL (11.5-17.4); pH(98.6) 7.24 (7.35-7.45)
[2017-05-12 06:11] LABS: MODALITY BI PAP; PCO2(98.6) 69 mmHg (35-45)
[2017-05-12] MEDS: XOPENEX NEB INH SCH ×3 (06:21→22:39)
[2017-05-12 06:37] LABS: ALBUMIN 3.1 g/dL (3.5-5.0); CALCIUM 8.2 mg/dL (8.8-10.2); POTASSIUM 5.3 mmol/L (3.5-5.1); TOTAL BILIRUBIN 0.64 mg/dL (0.20-1.00)
--- NOTE | 2017-05-12 06:45 | EKG Report ---
Test Performed on : 05/11/2017 7:09:58 PM Test Reason : AMS Blood Pressure : / mmHG Vent. Rate : 118 BPM Atrial Rate : 119 BPM P-R Int : 142 ms QRS Dur : 076 ms QT Int : 284 ms P-R-T Axes : 041 -51 035 degrees QTc Int : 398 ms Sinus tachycardia. Left axis deviation Low voltage QRS Inferior infarct , age undetermined Cannot rule out Anterior infarct , age undetermined Abnormal ECG When compared with ECG of 07-JAN-2017 05:55, Vent. rate has increased BY 46 BPM Minimal criteria for Anterior infarct are now present Inferior infarct is now present T wave inversion no longer evident in Inferior leads Unconfirmed Result
[2017-05-12 07:29] LABS: HEMATOCRIT 25.7 % (37.0-47.0); HEMOGLOBIN 8.3 g/dL (12.0-16.0); MCH 28.7 PG (27-31); MCHC 32.3 g/dL (33-37); MCV 88.9 FL (81-99); MPV 12.1 FL (7.4-10.4); RBC 2.89 XMIL (4.2-5.4)
--- NOTE | 2017-05-12 07:32 | Diag Imaging Result Doc PS360 ---
EXAM: CHEST-PORTABLE INDICATION: confirm central line placement. TECHNIQUE: One view COMPARISON: 05/11/2017 FINDINGS: Lung volumes are very low similar to the previous study. There has been interval placement of a right subclavian line. The tip projects over the region of the atriocaval junction in the expected position. There are no new consolidations. Pulmonary venous congestion appears improved somewhat. Cardiac silhouette is stable. There is no evidence of pneumothorax. IMPRESSION: 1.Interval placement of right central line with no evidence of pneumothorax postplacement. 2.Interval improvement of pulmonary venous congestion. Electronically signed by Chris Goode 05/12/2017 7:29 AM
[2017-05-12] MEDS ORDERED: NS 500 ML ONE (07:53)
[2017-05-12] MEDS: MAXIPIME 2 GM/NS 2 GM/100 ML IVPB IV SCH ×2 (08:22→20:18)
--- NOTE | 2017-05-12 08:44 | HISTORY AND PHYSICAL ---
CHIEF COMPLAINT: Altered mentation. HISTORY OF PRESENT ILLNESS: This is a 62-year-old female with a history of endocarditis and chronic pain disorder. She is also on some Xanax. Her brought her in because she has been more confused, more lethargic today. She has had a cough for the last 24 hours. She had a very recent endocarditis episode in December, treated by Dr. Rodriguez, ID, and Dr. Araya. It was a fungal infection but I do not have documentation of that. I am awaiting records at this point. In the ER, she was febrile to 103.2, tachycardic, initially normotensive and then developed hypotension. Her initially found that her mental status was related to her medications but with progressive lethargy, he brought her in for further evaluation. It does appear she has interstitial infiltrates on her chest x-ray, hypercapnia based on her blood gas, and clinical signs of sepsis with shock. We have had to institute vasopressor therapy to maintain her blood pressure. PAST MEDICAL HISTORY: 1. Hypertension. 2. Dyslipidemia. 3. History of endocarditis, possibly a fungal type. 4. Chronic obstructive pulmonary disease. 5. Hypothyroidism. 6. Chronic pain disorder. 7. GERD. PAST SURGICAL HISTORY: 1. She has had back surgeries. 2. Cholecystectomy. SOCIAL HISTORY: No current tobacco use. She was about half a pack a day smoker for at least 20- 25 years. ALLERGIES: Codeine, fentanyl patch, and Demerol. FAMILY HISTORY: Reviewed and noncontributory. Mother did have CHF. Father had lung and metastatic bone cancer. I think it was metastatic lung cancer. REVIEW OF SYSTEMS: Limited but otherwise negative review time 10 systems. PHYSICAL EXAMINATION: VITAL SIGNS: Blood pressure was 93/54, heart rate of 110, respiratory rate 25, temperature was 99.4 degrees with a T-max of 103.2. GENERAL: A well-developed female, obese, in no acute distress. Very lethargic but does respond intermittently to questioning. HEENT: Pupils equal, round, and reactive to light. Oral mucosa was dry. NECK: Supple. CARDIOVASCULAR: Regular rate and rhythm. She had a 3/6 holosystolic murmur at the left upper sternal border. GI: Soft, nontender, nondistended. Bowel sounds were positive. EXTREMITIES: No clubbing or cyanosis. LYMPHATICS: No peripheral edema. NEUROLOGICAL: Examination was nonfocal. However, she was very lethargic and only responded to questioning intermittently. LABORATORY DATA: White count 11, hemoglobin and hematocrit 10 and 31. ABG, pH 7.24, pCO2 70. BUN and creatinine 32 and 1.5. BNP of 799. Urine was clear. UDS positive for opiates and amphetamines. Chest x-ray showed diffuse interstitial infiltrates right and left. Head CT was unremarkable. ASSESSMENT: This is a 62-year-old female presenting with fever, tachycardia, hypotension, pulmonary infiltrates, although interstitial. She was admitted for septic shock, presumably from a pulmonary source, although her history of endocarditis raises question of current infection, although she had an echocardiogram per Dr. Araya 2 weeks ago per her that was clear. She has had repeat blood cultures. The last 1 was at the beginning of December which was also clear but I think that was before her transfer. PROBLEM LIST: 1. Septic shock. We will continue volume resuscitation. We will continue broad-spectrum antibiotics. At this point, I have added vancomycin, Zosyn, and Levaquin to cover pulmonary, pending records. We may need to add micafungin. I am going to go ahead and consult infectious disease. They had seen her previously. We need to better evaluate for a possible underlying bacteremia pending cultures. We will continue volume resuscitation. 2. Acute kidney injury. Continue intravenous fluids. Check urine electrolytes. Monitor renal ultrasound tomorrow. 3. Hypertension. Obviously holding blood pressure medications for the time being. 4. Metabolic encephalopathy, likely related to sepsis and medications and renal insufficiency. We will continue to monitor. No evidence of an acute neurological event as far as a cerebrovascular event at this point. We will continue to monitor. Disposition, she is an ICU patient. Greater than 35 critical care time for pressors also. 5. Hypercapnic respiratory failure. We will initiate BiPAP. Monitor ABGs. I have gone ahead and consulted critical care service for hypercapnic respiratory failure and septic shock. We will continue to follow. cc: MD Samson Thayer MD
[2017-05-12] MEDS: CUBICIN 500 MG in NS 100 ML IV SCH (09:55)
[2017-05-12] MEDS: NEO-SYNEPHRINE 50 MG in NS 250 ML IV SCH ×2 (11:27→23:05)
--- NOTE | 2017-05-12 11:54 | OPERATIVE NOTE ---
PROCEDURE DATE: 05/12/2017 PROCEDURE PERFORMED: Central line placement, right subclavian approach. INDICATIONS: IV access and hypotension, need for pressors centrally. DESCRIPTION OF PROCEDURE: Consent signed. Discussed with at bedside. Patient was placed in Trendelenburg. Had local sterilization with chlorhexidine. IV triple-lumen was accessed after 2nd pass without difficulty. The wire was placed and triple-lumen catheter placed over wire via modified Seldinger technique at [address] Chest x-ray confirms placement at the border of the SVC and right atria. No significant complications. Patient was somewhat agitated during the procedure and did require the nurse to hold her down. We did end up having to give her 2 of Ativan just to get her to not have issues during the procedure. cc: MD Samson Thayer MD
[2017-05-12 12:00] LABS: ALLEN TEST YES; BE -2.1 mmoll (-3.0-3.0); BLOOD TYPE ARTERIAL; DRAW SITE R RADIAL; METHB 0.6 % (0.0-1.5); O2(CT) 12.3 mL/dL (15.0-23.0); PO2(98.6) 103 mmHg (60-100); SAMPLE BLOOD; SAO2 99.1 % (95.0-100.0); THB 8.9 g/dL (11.5-17.4); pH(98.6) 7.24 (7.35-7.45)
[2017-05-12 12:01] LABS: MODALITY CANNULA; PCO2(98.6) 60 mmHg (35-45)
--- NOTE | 2017-05-12 13:26 | CONSULTATION ---
DATE OF CONSULTATION: 05/12/2017 NOTE: It should be noted the patient is unable to provide a history; there is no history in the computer about what is going on with the patient and no family member is present either. CONCLUSION: The patient was admitted to the intensive care unit with sepsis. The location of the sepsis is uncertain to me. The patient's chest x-ray showed clear lung grande, which would make pneumonia unlikely. Her urinalysis was negative for white cells and bacteria, which would make urinary tract infection unlikely. The patient's nurse said that the patient does have a history of endocarditis and possibly the patient is having a recurrence of her endocarditis. RECOMMENDATIONS: I have discontinued vancomycin, Levaquin and Zosyn, and instead put the patient on daptomycin and cefepime. I am going to order an echocardiogram on the patient in view of her history of endocarditis. DISCUSSION: As mentioned above, the patient was unable to provide a history. No family member was present, and there was nothing in the computer that has been printed up yet about the patient's history. The nurse did mention as mentioned above that the patient had endocarditis and received antibiotics for it. Her chest x-ray is clear. CT scan of the head showed no acute disease. Urinalysis was negative for white cells and bacteria. Blood cultures are pending. CBC shows a white count of 11,700, hemoglobin 10.6, and platelet count 208,000. Blood gases show a pH of 7.24, a PO2 of 98 and a pCO2 of 69,. Liver function studies are normal, except for an alkaline phosphatase of 30. The creatinine is 1.5. The GFR is 35. PHYSICAL EXAMINATION: Vital Signs: Temperature is 98.3 degrees, pulse 79, respirations 14, blood pressure 80/40. The patient is on Ken-Synephrine. Head, eyes, ears, nose, and throat: The patient is wearing a BiPAP mask. There is no drainage from the nose or ears. She did not respond to verbal stimuli. Neck: No meningismus. Thorax: No increased AP diameter to the chest. Lungs: Clear to auscultation. Cardiovascular: Heart rate is regular. I did not hear a murmur. Abdomen: Soft and nontender. Neurologic: As mentioned above, the patient is obtunded. She did not respond to verbal stimuli. During my exam, I did not see her move her extremities, but she is breathing on her own. Integument: No rash noted. ALLERGIES: Allergies to codeine, fentanyl patch and meperidine. HOME MEDICATIONS: Ambien, Zanaflex, Zoloft, Prilosec, Movantik, MS Contin, Toprol, Zestril, Synthroid, ipratropium, fluticasone, cholecalciferol, atorvastatin, aspirin and alprazolam. Just by looking at the patient's medication she is on, it would appear that she has hypertension, hypothyroidism, chronic obstructive pulmonary disease, hyperlipidemia. The patient is on Xanax, but the reason for it is uncertain to me. PHYSICAL EXAMINATION: Vital Signs: Temperature is 98.3 degrees, pulse 79, respirations 14, blood pressure is 80/48. Patient's weight is listed as 207 pounds. She is 5 feet 4 inches tall. Head, eyes, ears, nose and throat: No drainage noted from the nose or ears. She did not respond to verbal stimuli. She is wearing a BiPAP mask. Lungs: Clear to auscultation. Cardiovascular: Heart rate is regular. Thorax: The patient has an increased AP diameter of the chest. She also has a right-sided subclavian triple lumen catheter in place. The catheter site is not bleeding. Abdomen: Soft and nontender. Extremities: The patient's left great toe is surgically absent. There was bilateral leg edema. Neurologic: The patient was not arousable when I examined her this morning. Thank you for the consult. cc: MD Samson Garcia MD
[2017-05-12] MEDS: HALDOL IM PRN ×2 (13:46→21:33)
--- NOTE | 2017-05-12 14:05 | ECHO REPORT ---
ORDER DATE: 05/12/2017 2D ECHOCARDIOGRAM: ECHOCARDIOGRAPHIC MEASUREMENTS: 1. Interventricular septum 1.0, left ventricular posterior wall 1.0, diastolic diameter 4.3, left atrium 5, aorta 3.0. Technically suboptimal study. Poor acoustic window. 2. Aortic valve leaflets were trileaflet. Pulmonic valve was normal. There is trace pulmonary regurgitation. Mitral valve leaflets were mildly thickened. 3. Technically suboptimal study. Poor acoustic window. 4. Normal left ventricular cavity size. Estimated ejection fraction of 60%. 5. Peak velocity across the aortic valve less than 2 m/sec. There is no aortic stenosis or regurgitation. There is mild mitral regurgitation, mild tricuspid regurgitation. Peak velocity across the tricuspid valve was 3.3 m/sec. 6. There is no pericardial effusion or obvious intracardiac mass or thrombus seen. 7. As the diagnosis is of endocarditis would recommend transesophageal echocardiogram to better evaluate valve structures and rule out endocarditis. cc: MD Daniel Ennis MD Bharat K. Vakharia, MD
--- NOTE | 2017-05-12 14:27 | CONSULTATION ---
DATE OF CONSULTATION: 05/12/2017 PULMONARY CONSULTATION: REQUESTING PHYSICIAN: Dr. Gomez. REASON FOR CONSULTATION: Respiratory failure. HISTORY OF PRESENT ILLNESS: Ms. Colin is a 62-year-old white female with history of tobacco use, history of chronic pain syndrome, gastroesophageal reflux, who was initially seen by this practitioner in April 2016 with hypoxemic respiratory failure and presumptive aspiration pneumonia. She did recover from that illness without difficulty. The patient was. Admitted to the hospital in December of this year with leukocytosis and pulmonary edema along with atrial fibrillation with rapid ventricular response. A transesophageal echocardiogram was performed during that hospitalization, which revealed an abnormal thickening of the anterior leaflet of the mitral valve possibly related to the head of the papillary muscle which was felt to have ruptured. The patient was sent to [facility] and it was decided that the patient had endocarditis. It is not clear whether the patient had an organism identified but she was discharged on vancomycin and IV Zosyn. She was subsequently changed to meropenem due to complications with the Zosyn by her 's report. On followup her mitral valve regurgitation has nearly resolved. Clinically, she has done has done well. On Thursday evening she developed some confusion and yesterday evening she developed fevers as high as 103 degrees. She was brought to the emergency room and subsequently admitted for additional evaluation and treatment. PAST MEDICAL HISTORY/PROBLEM LIST:: 1. Presumptive endocarditis. The patient was treated in [facility] by Dr. Rodriguez and these notes have been requested by Dr. Marr. 2. Chronic obstructive pulmonary disease. 3. Morbid obesity. 4. History of aspiration pneumonitis. 5. Gastroesophageal reflux disease. 6. Anxiety/depressive disorder. 7. Chronic pain syndrome. 8. Posttraumatic stress disorder. 9. Extensive back surgery with stabilization rods from the lumbar to thoracic vertebrae. 10. Status post appendectomy. 11. Status post hysterectomy. 12. Status post cholecystectomy. 13. Status post ankle surgery. 14. Fracture of the left wrist requiring surgery. SOCIAL HISTORY: No alcohol use. Nonsmoker since 05/02/2016. She has an attentive . FAMILY HISTORY: Noncontributory to current presentation. REVIEW OF SYSTEMS: Limited due to patient's confusion. PHYSICAL EXAMINATION: General: Reveals an obese, white female, on BiPAP ventilation. T-max in the emergency room last evening was 103.2 degrees. She is on vasopressors. Vital Signs: Blood pressure 99/61, heart rate 105, respiratory rate 20, oxygen saturation 96%. HEENT: Pupils are equal and reactive. Oropharynx evaluation is limited. Neck: Supple. Chest: Reveals bilateral crackles. Cardiac Exam: Distant heart sounds. Normal S1, normal S2. Abdomen: Obese and soft. Extremities: Without petechiae. LABORATORIES: White blood count 11.27, hemoglobin 8.3, platelet count 164,000. Blood cultures are pending. Arterial blood gas reveals a pH of 7.24, pCO2 of 69, PO2 of 98 on BiPAP. Sodium 137, potassium 5.3, chloride 101, BUN 32, creatinine 1.2. Urinalysis reveals no red cells and no white blood cells. IMAGING: Chest x-ray reveals central line placement with pulmonary vascular congestion. IMPRESSION: A 62-year-old status post treatment for endocarditis earlier this year who presents with altered mental status, fevers, pulmonary edema versus pneumonia, and acute hypoxemic and hypercapnic respiratory failure. RECOMMENDATIONS: 1. Obtain old records to evaluate previous treatment for endocarditis. 2. Repeat echocardiogram to re-evaluate the cardiac valves. 3. BiPAP to see if she will improve in the next 24-48 hours. Adjustments have been made. 4. Gastric acid suppression. 5. Antibiotics per Infectious Disease. 6. Additional recommendations pending hospital course. cc: MD Samson Marroquin MD
[2017-05-12] MEDS ORDERED: NS 1,000 ML ONE (15:33)
--- NOTE | 2017-05-12 17:55 | PROGRESS NOTE ---
DATE: 05/12/2017 62-year-old, white female patient, admitted with fever, altered mental status. The patient did have hypotension. The patient was doing fairly well until Thursday. Then her clinical condition started deteriorating. The patient was getting weak, hypoxemic, more disoriented and confused. The patient had a fever of 103. Her increased her oxygen. The patient was getting more weak and lethargic. Brought to the emergency room. Evaluated by ER physician. Admitted for further care. The patient's blood pressure was low. We had hard time starting her IV. Patient had central line placed. Patient was given IV fluid, pressure support, IV antibiotics. The patient does have complex medical history. ID consult and Critical Care consult requested I evaluated the patient this morning and again today. Her vital signs noted. Patient is still on Ken-Synephrine drip. Low-grade fever.Lungs: Decreased air entry both the bases. CVS: S1 and S2 heard. Abdomen: Soft, globular. Bowel sounds present. Patient does have hernia right upper quadrant. Extremities: No cyanosis, clubbing. No acute DVT. NEW ACCOUNT INTERVIEWER: Alert, awake. The patient is on BiPAP. LAB DATA: Noted hemoglobin 8.3, hematocrit 25.7, WBC count 11.27, platelet count 164,000. Blood gas results reviewed. Electrolytes also noted. Cardiac isoenzymes minimally elevated. The patient's was present. I am going to check appropriate lab again tomorrow. CONSIDERATION: 1. Hypotension. 2. Possible sepsis. 3. Respiratory failure. 4. History of endocarditis. 5. Anemia. OVERALL PLAN: Discussed with the patient and patient's is in agreement. cc: Samson Gomez MD
[2017-05-13] MEDS ORDERED: VANCOMYCIN 1,200 MG in NS 250 ML IV SCH (01:00)
[2017-05-13] MEDS: XOPENEX NEB INH SCH ×4 (03:42→21:10)
[2017-05-13] MEDS: HALDOL IM PRN ×2 (04:13→08:13)
[2017-05-13] MEDS: SODIUM CHLORIDE 0.9% INJ SCH (04:13)
[2017-05-13] MEDS: NEXIUM IV SCH (04:13)
[2017-05-13] MEDS: LOVENOX SUBQ SCH (04:14)
[2017-05-13 04:33] LABS: ALLEN TEST YES; BE -3.7 mmoll (-3.0-3.0); BLOOD TYPE ARTERIAL; DRAW SITE R RADIAL; METHB 0.8 % (0.0-1.5); O2(CT) 12.7 mL/dL (15.0-23.0); PCO2(98.6) 49 mmHg (35-45); PO2(98.6) 156 mmHg (60-100); SAMPLE BLOOD; SAO2 99.4 % (95.0-100.0); pH(98.6) 7.28 (7.35-7.45)
[2017-05-13 04:35] LABS: MODALITY BI PAP
[2017-05-13 06:10] LABS: BASO% 0.1 % (0.0-0.8); HEMATOCRIT 27.5 % (37.0-47.0); HEMOGLOBIN 8.9 g/dL (12.0-16.0); IMM GRAN# 0.03 X1000 (0.0-0.04); IMM GRAN% 0.4 % (0.0-0.5); LYMPH# 0.33 X1000 (1.2-3.4); LYMPH% 4.3 % (20.5-51.1); MANUAL DIFF NEEDED? YES; MCH 29.2 PG (27-31); MCHC 32.4 g/dL (33-37); MCV 90.2 FL (81-99); MONO% 3.9 % (1.7-9.3); MPV 12.4 FL (7.4-10.4); NEUT% 91.3 % (42.2-75.2); PLT 158 X1000 (130-400); RBC 3.05 XMIL (4.2-5.4)
[2017-05-13 06:25] LABS: AGAP 13; ALBUMIN 3.5 g/dL (3.5-5.0); ALKALINE PHOSPHATASE 114 U/L (32-104); BUN 15 mg/dL (8-22); CHLORIDE 107 mmol/L (98-107); COSMO 287; GOT 25 U/L (10-30); GPT 14 U/L (10-36); POTASSIUM 4.5 mmol/L (3.5-5.1); SODIUM 143 mmol/L (136-145); TCO2 23 mmol/L (25-35); TOTAL BILIRUBIN 0.59 mg/dL (0.20-1.00)
--- NOTE | 2017-05-13 07:25 | Diag Imaging Result Doc PS360 ---
CHEST-PORTABLE - 05/13/2017 INDICATION: abnormal exam TECHNIQUE: COMPARISON: 05/12/2017 FINDINGS: Stable right central line. Stable cardiomegaly and pulmonary vascular congestion. Stable coarse interstitial infiltrates diffusely and bilaterally. No pneumothorax or large effusion. IMPRESSION: No change from prior. Electronically signed by George Rodriguez 05/13/2017 7:23 AM
[2017-05-13] MEDS: MAXIPIME 2 GM/NS 2 GM/100 ML IVPB IV SCH ×2 (07:29→20:15)
[2017-05-13] MEDS: ADVAIR 250/50 DISKUS INH SCH (07:57)
[2017-05-13] MEDS: XANAX PO SCH ×2 (08:04→20:15)
[2017-05-13] MEDS: ASPIRIN EC PO SCH (08:04)
[2017-05-13] MEDS: PRINIVIL PO SCH (08:05)
[2017-05-13] MEDS: ZOLOFT PO SCH (08:05)
[2017-05-13 08:09] LABS: BANDS 6 % (0-1); LYMPHS 2 % (21-51); MONO 4 % (1-9)
[2017-05-13] MEDS: CUBICIN 500 MG in NS 100 ML IV SCH (08:14)
--- NOTE | 2017-05-13 08:16 | PROGRESS NOTE ---
DATE: 05/13/2017 SUBJECTIVE: Ms. Colin is doing fair. Patient admitted with altered mental status, confusion, and hypoxemic respiratory failure, hypotension. The patient is on BiPAP. She denied any fever or chills. Last night, the patient was more confused trying to pull her BiPAP out, and we had to put on soft restraints. No typical chest pain or palpitation. No nausea or vomiting. No diarrhea. Admission history, physical, and pulmonary consult noted. Her lab data done today revealed blood gas and pH was 7.28, pCO2 of 49, PO2 of 156. CBC: WBC count 7.74. Hemoglobin 8.9, hematocrit 27.5, platelet count 158,000. Electrolytes result reviewed. OBJECTIVE: Vital signs reviewed. Patient is off Ken-Synephrine drip. Blood pressure is better. Neck supple. No JVD. Lungs: Bibasilar crepitations. Heart: S1 and S2 heard. Abdomen soft, globular. Bowel sounds present. Patient does have abdominal wall hernia. Extremities: No cyanosis, clubbing. No acute DVT. RAG SORTER: Alert, awake. Able to move all 4 limbs. Overall, the patient seems to be improving. I resumed some of her medications. Patient is on broad-spectrum antibiotics. Also, on pain medication which will continue. PLAN: Overall plan discussed with the patient and she is in agreement. I am going to get troponin level from the a.m. blood. Chest x-ray official result pending. I appreciate Dr. Bell's and Dr. Bautista' help managing patient. cc: Samson Gomez MD
[2017-05-13] MEDS ORDERED: LASIX IV ONE (10:58)
[2017-05-14] MEDS: XOPENEX NEB INH SCH ×3 (03:20→16:27)
[2017-05-14] MEDS: SODIUM CHLORIDE 0.9% INJ SCH (03:34)
[2017-05-14] MEDS: NEXIUM IV SCH (03:35)
[2017-05-14] MEDS: LOVENOX SUBQ SCH (03:35)
[2017-05-14 04:48] LABS: ALLEN TEST YES; BE 5.8 mmoll (-3.0-3.0); BLOOD TYPE ARTERIAL; DRAW SITE R RADIAL; METHB 0.6 % (0.0-1.5); O2(CT) 14.8 mL/dL (15.0-23.0); PCO2(98.6) 48 mmHg (35-45); PO2(98.6) 147 mmHg (60-100); SAMPLE BLOOD; SAO2 99.2 % (95.0-100.0); THB 10.6 g/dL (11.5-17.4); pH(98.6) 7.42 (7.35-7.45)
[2017-05-14 04:49] LABS: MODALITY CANNULA
[2017-05-14 05:47] LABS: HEMOGLOBIN 8.5 g/dL (12.0-16.0); MCH 29.5 PG (27-31); MCHC 32.7 g/dL (33-37); MCV 90.3 FL (81-99); MPV 12.2 FL (7.4-10.4); RBC 2.88 XMIL (4.2-5.4)
[2017-05-14 06:16] LABS: AGAP 11; ALBUMIN 3.6 g/dL (3.5-5.0); ALKALINE PHOSPHATASE 103 U/L (32-104); BUN 10 mg/dL (8-22); CALCIUM 9.5 mg/dL (8.8-10.2); CHLORIDE 104 mmol/L (98-107); COSMO 287; GOT 22 U/L (10-30); GPT 11 U/L (10-36); MAGNESIUM 1.9 mg/dL (1.5-2.7); POTASSIUM 3.5 mmol/L (3.5-5.1); SODIUM 144 mmol/L (136-145); TCO2 29 mmol/L (25-35); TOTAL BILIRUBIN 0.58 mg/dL (0.20-1.00)
[2017-05-14] MEDS ORDERED: POTASSIUM PHOSPHATE 15 MMOL in NS 250 ML IV ONE (07:00)
[2017-05-14] MEDS: MAXIPIME 2 GM/NS 2 GM/100 ML IVPB IV SCH (07:22)
--- NOTE | 2017-05-14 07:26 | PROGRESS NOTE ---
DATE: 05/14/2017 SUBJECTIVE: Ms. Colin is doing better. More alert and awake. No high-grade fever or chills. Mild cough. No expectoration. Denied any nausea or vomiting. PHYSICAL EXAMINATION: Vital Signs: Her vital signs noted. Neck: Supple. No JVD. Lungs: Bilateral good air entry present. CVS: S1 and S2 heard. Abdomen: Soft, globular. Bowel sounds present. Extremities: No cyanosis, clubbing. No acute DVT. HYDROCHLORIC AREA SUPERVISOR: Alert, awake. Able to move all 4 limbs. LAB DATA: Done today, hemoglobin 8.5, hematocrit 26, platelet count 173,000. Blood gas much improved, pH 7.42, pCO2 48, PO2 147. Electrolytes, mild hypokalemia. Phosphorus was low. The patient's troponin was minimally elevated. I am going to recheck troponin today. CONSIDERATION: 1. Patient admitted with hypotension. 2. Respiratory failure. Chest x-ray done yesterday did reveal interstitial infiltrate bilaterally. 3. Patient does have history of endocarditis. 4. Chronic obstructive pulmonary disease. 5. Morbid obesity. 6. Hypertension. 7. Elevated troponin. PLAN: Overall plan discussed with the patient. We will advance her diet to a full liquid diet. Supplement phosphorus. cc: Samson Gomez MD
--- NOTE | 2017-05-14 07:27 | Diag Imaging Result Doc PS360 ---
EXAM: CHEST-PORTABLE HISTORY: abnormal exam TECHNIQUE: Erect AP portable chest at 0540. COMMENT: There is a right subclavian central venous catheter with its tip in the superior vena cava. There is pulmonary edema. There is pleural thickening or loculated effusion laterally on the right. This is more apparent than on the previous study of 05/13/2017, otherwise there is been no significant change. There has been definite worsening in the pulmonary opacities since 05/12/2017. IMPRESSION: Pulmonary edema and/or pneumonia. Electronically signed by Prashanth Galindo 05/14/2017 7:24 AM
[2017-05-14] MEDS: PRINIVIL PO SCH (08:02)
[2017-05-14] MEDS: ZOLOFT PO SCH (08:02)
[2017-05-14] MEDS: XANAX PO SCH (08:02)
[2017-05-14] MEDS: ASPIRIN EC PO SCH (08:02)
[2017-05-14] MEDS: CUBICIN 500 MG in NS 100 ML IV SCH (08:03)
--- NOTE | 2017-05-14 08:21 | PROGRESS NOTE ---
DATE: 05/14/2017 SUBJECTIVE: The patient was admitted to the unit with a septic like picture. I think the patient most likely had and still does have pneumonia. MEDICATIONS: The patient is on cefepime as a single agent. PHYSICAL EXAMINATION: Vital Signs: Temperature is 98.6 degrees, pulse 80, respirations 19, blood pressure 157/83. General: This is a fairly healthy-appearing, middle-aged female. She is in no acute distress. Lungs: Clear to auscultation. Cardiovascular: Regular heart rate. I did not hear a murmur. Abdomen: Soft and nontender. Neurologic: Patient is alert. She can move her extremities. LAB AND X-RAY: Chest x-ray shows bilateral pneumonia and/or pulmonary edema. Blood cultures are sterile. CBC shows a white count of 5,490, hemoglobin 8.5, and platelet count 173,000. Creatinine is 0.7. GFR is greater than 60. Blood gases show a pH of 7.42, a PO2 of 147, a pCO2 of 48. Echocardiogram did not show any vegetations. ASSESSMENT AND PLAN: I think the patient has pneumonia. My plan is to continue with cefepime as a single agent. The patient's comorbidities include that the patient recently had endocarditis and she also has hypothyroidism and hyperlipidemia. cc: MD Samson Garcia MD
[2017-05-14] MEDS: ADVAIR 250/50 DISKUS INH SCH (09:20)
[2017-05-14] MEDS ORDERED: LASIX IV SCH (09:45)
[2017-05-14] MEDS: HALDOL IM PRN (10:55)
[2017-05-14] MEDS: ZANAFLEX PO SCH ×2 (14:40→16:59)
[2017-05-14 16:53] VITALS: BP 81/53
[2017-05-14] MEDS ORDERED: LIPITOR PO SCH (21:00)
--- NOTE | 2017-05-14 23:32 | CONSULTATION ---
DATE OF CONSULTATION: 05/14/2017 REASON FOR CONSULTATION: Cardiology was consulted for heart failure, non-Q-wave myocardial infarction. HISTORY OF PRESENT ILLNESS: Ms Yanira Colin is a 62-year-old lady who was had a complicated medical history as listed below. She was recently diagnosed to have endocarditis, has chronic low back pain. Has known coronary artery disease with mitral regurgitation with recent cardiac catheterizations as below. She was brought into the hospital as she was confused, more lethargic, also had some cough, was admitted with a temperature of 103 degrees, chest x-ray suggestive of heart failure and/or pneumonia. Patient was admitted. Since her admission she has remarkably improved as far as mentation is concerned. She is afebrile. She has been followed by pulmonology as well as infectious disease. She came in and her cardiac enzymes initially were 0.018, subsequently 0.184 and the last cardiac enzyme was 0.349 ng/mL with a normal range of 0.09 ng/mL. Chest x-ray suggestive of heart failure. Since her admission she says she feels better. Denies chest pain at the present time. There is no palpitations however she has [facility] closely [facility] [place]. She has been having episodes of chest discomfort and she underwent a stress test and an echocardiogram per family. She was going to have a back surgery done as she has chronic back problems with features of footdrop and neuropathy in her right leg. She was admitted here, initiated with vasopressor to maintain her blood pressures. Currently she is off her pressor drips. She has been having episodes of chest discomfort which she describes as tightness and she had a stress test done prior to her admission to the hospital. She has also been having episodes of chest pains described as pressure-like sensations. Exercise capacity significantly limited on account of her back problems. She had a cardiac catheterization done on 01/08/2017 which revealed right coronary artery was occluded with [id number] collaterals, circumflex luminal irregularities. LAD was diffusely calcified with proximal 75% stenosis just after the diagonal then a mid 70% and evaluation for mitral valve repair and CABG was recommended as she had severe mitral regurgitation with mobile vegetations on 01/08/2017. Subsequent echocardiogram in April 2017 revealed a normal left ventricular ejection fraction with moderate mitral regurgitation. There were no vegetations noted. She had then underwent a stress test at [place] on 04/28/2017 which revealed partially reversible perfusion abnormality in the basal inferior segment, fixed defects in the midinferior and this was a mixed defect scan. REVIEW OF SYSTEMS: Fourteen point review of system was done.GI: There is no history of nausea, vomiting, or diarrhea. There is no history of hematemesis or melena. Central nervous system: Admissions as above but since then there is no focal weakness to suggest a CVA or TIA. Genitourinary: There is no dysuria or hematuria. Respiratory: As above. Since admission she does not complain of any cough but complains of shortness of breath. PAST MEDICAL HISTORY: 1. Coronary artery disease with congestive heart failure and severe mitral regurgitation. Cardiac catheterization 01/08/2017 LAD mid to distal 75 and 70% stenosis. RCA occluded. Luminal irregularities in the circumflex with severe mitral regurgitation. 2. She had mitral valve mobile vegetations treated for endocarditis on 01/08/2017. 3. Echocardiogram 04/21/2017 revealed normal ejection fraction, moderate MR without any further vegetations. Echocardiogram done at [facility] no vegetations noted, preserved left ventricular systolic function. Mild mitral regurgitation. 4. Splenic infarct. 5. Hypertension. 6. Hyperlipidemia. 7. History of respiratory failure and sepsis in the past. 8. COPD. 9. Hypothyroidism. 10. Chronic pain syndrome. 11. Chronic degenerative disk disease in the back. Surgery is planned for chronic low back pain and disk disease and has neuropathic pain and likely footdrop as well. 12. Cholecystectomy. SOCIAL HISTORY: No current tobacco abuse. She was about a half a pack smoker for at least 20-25 years. ALLERGIES: Allergic to codeine, fentanyl patch, Demerol. PHYSICAL EXAMINATION: Vital Signs: Blood pressure 118/75. Cardiovascular: Normal jugular venous pressure. First and second heart sounds were heard. There is faint systolic murmur. Respiratory: Examination revealed bibasilar inspiratory crepitations. Abdomen: Soft, nontender. There was no guarding or rigidity. Bowel sounds were heard. Central nervous system: Alert, oriented, was moving all 4 extremities. Extremities: Examination of extremities revealed mild pedal edema. Detailed central nervous system examination not performed. HEENT: Atraumatic, normocephalic. Pupils were equal and reacting to light. LABORATORY EXAMINATION: Revealed non-Q-wave myocardial infarction with a troponin going up to 0.349. BMP today was sodium 144, potassium 3.5, BUN 10, creatinine 0.7, magnesium 1.9, total protein 6, albumin 3.6, globulin 2.4. Hematology. Hemoglobin 8.5, hematocrit 26 platelet count of 173,000. Chest x-ray. Heart failure versus pneumonia. CURRENT MEDICATIONS: Include atorvastatin 20, aspirin 81 mg a day, cefepime, Lasix 80 mg was increased to 80 mg 3 times a day today, haloperidol p.r.n., Xopenex, Prinivil 5, sertraline 50. HOME MEDICATIONS: She had also been taking Zanaflex 4 mg p.o. t.i.d. and she was also on beta- blockers. ASSESSMENT AND PLAN: Ms Doyle is a 62-year-old lady who has a very complicated history, has known severe coronary artery disease with occluded right coronary artery and severely diseased left anterior descending artery, underwent a cardiac catheterization 01/08/2017, was in [facility] with endocarditis on 01/08/2017 with severe mitral regurgitation and vegetation noted on mitral valve leaflets. She also has hypertension, hyperlipidemia. She has been having episodes of chest discomfort. She is admitted here at [facility] with altered mental status, had fever with x-ray suggestive of heart failure, pneumonia. 1. She has been started on antibiotics. 2. She has abnormal cardiac enzymes diagnostic of non-Q-wave myocardial infarction. Chest x-ray suggestive of heart failure. Lasix has been increased to 80 mg 3 times a day today. She was initially hypotensive and medications have been held. She has been restarted on lisinopril. Given the non-Q-wave myocardial infarction we will restart her back on her beta- blockers. 3. Given her non-Q-wave myocardial infarction in the setting of severe known coronary artery disease, I have recommended that she be transferred to [facility] and the patient will be transferred to [facility], is willing to undergo transfer and further treatment. 4. She had endocarditis 01/08/2017. Blood cultures so far are negative. She has been covered with antibiotics for likely pneumonia as well and her echocardiogram done on 04/21/2017 at [place] as well as the one done at [facility] does not reveal any obvious vegetation. I have discussed with patient's in detail that further transesophageal echocardiogram may also be required once she goes into [facility] and is stabilized before her likely cardiac catheterization. 5. For hypertension, continue with her medications. 6. She has also chronic obstructive pulmonary disease. I have not made any other suggestions or changes to medication. 7. Hyperlipidemia. She is on medications. I have not made any changes. She requests restarting her on Zanaflex and pain medications for her chronic low back pain and she had seen orthopedic surgeon and surgery was contemplated for her back surgery later this month. Thank you for the consult. Will follow hospital course. cc: MD Samson Ennis MD
--- NOTE | 2017-05-27 04:36 | DISCHARGE SUMMARY ---
ADMISSION DATE: 05/12/2017 DISCHARGE DATE: 05/14/2017 DISCHARGE SUMMARY ADDENDUM: The patient's presentation was due to systemic inflammatory response syndrome. cc: Samson Gomez MD
--- NOTE | 2017-05-28 19:40 | ED EKG INTERP ---
This chart was entered by Valentina Burton Scribe, acting as scribe for Bernard Haddad MD. EKG Interpretation - EKG Time of EKG reading by physician:: 19:09 EKG Read and Signed by:: Bernard Haddad EKG Interpretation (*Must complete 3 of following elements*): Abnormal Rate: 118 Rhythm: Sinus Tachycardia Mangum: left (deviation) QRS: other (low voltage) Comments: Abnormal ECG, Inferior infract This chart was documented by the indicated scribe, (Valentina Butron Scribe) and accurately reflects the services I performed and decisions made by me, Bernard Haddad MD, as attested by the provider's signature.
--- NOTE | 2017-05-28 19:41 | PROVIDER DOCUMENTATION ---
This chart was entered by Valentina Burton Scribe, acting as scribe for Bernard Haddad MD. HPI-Fever - General Chief Complaint: Altered Mental Status Stated Complaint: AMS Time Seen by Provider: 05/11/17 20:11 Source: family Allergies/Adverse Reactions: Patient Allergies Allergy/AdvReac Type Severity Reaction Status Date / Time codeine Allergy Unknown Unknown Verified 05/11/17 19:56 fentanyl Allergy Unknown Unknown Verified 05/11/17 19:56 meperidine HCl * Allergy Unknown Unknown Verified 05/11/17 19:56 [From Demerol] Home Medications: Home Medication List Medication Instructions Recorded Confirmed Last Taken Type Alprazolam [Xanax] 0.25 mg PO BID 05/11/17 05/11/17 Unknown History Aspirin [Aspir-Low] 81 mg PO DAILY 05/11/17 05/11/17 Unknown History Atorvastatin Calcium [Lipitor] 20 mg PO DAILY 05/11/17 05/11/17 Unknown History Cholecalciferol (Vitamin D3) [D3 1,000 unit PO DAILY 05/11/17 05/11/17 Unknown History Dots] Fluticasone/Salmeterol [Advair 1 each INH DAILY 05/11/17 05/11/17 Unknown History 250-50 Diskus] Ipratropium/Albuterol Sulfate 1 each NEB Q6H PRN PRN 05/11/17 05/11/17 Unknown History [Iprat-Albut 0.5-3(2.5) mg/3 ml] Levothyroxine [Synthroid] 75 mcg PO DAILY 05/11/17 05/11/17 Unknown History Lisinopril [Zestril] 5 mg PO DAILY 05/11/17 05/11/17 Unknown History Metoprolol Succinate [Toprol Xl] 50 mg PO DAILY 05/11/17 05/11/17 Unknown History Morphine E.r. [Ms Contin] 15 mg PO TID 05/11/17 05/11/17 05/10/17 21:00 History Naloxegol Oxalate [Movantik] 25 mg PO DAILY 05/11/17 05/11/17 Unknown History Omeprazole [Prilosec] 40 mg PO DAILY 05/11/17 05/11/17 Unknown History Sertraline [Zoloft] 50 mg PO DAILY 05/11/17 05/11/17 Unknown History Tizanidine HCl [Zanaflex] 4 mg PO TID 05/11/17 05/11/17 Unknown History Zolpidem [Ambien] 5 mg PO QHS 05/11/17 05/11/17 Unknown History - History of Present Illness-Fever Nature of Presenting Problem: 62 Y/O F presents to ED with Fever. Pt is hypotensive in ED. Pt was brought in by due to grogginess starting last night, Pt states this afternnong thar she began having tremors in ED noted myocarditis. Pt began having word salad this evening. Pt was recently admitted into [facility] ICU with an infection. Pt has spinal stenious Fever Severity/Quality: reports: greater than 102 F Onset/Duration: reports: 24 hours ago Timing: reports: still present, changing over time, getting worse Severity: reports: severe Context: reports: decreased mental status, confusion, other (word salad) Recent Illness?: reports: pneumonia Cognitive Baseline: alert, oriented x3 Associated Symptoms: reports: fatigue, fever/chills, other (hypotensive). denies: loss of appetite, muscle aches, nausea, vomiting Recently seen or treated by another doctor?: Yes Review of Systems - Adult - REVIEW OF SYSTEMS - ADULT Constitutional: reports: chills, fever, fatique Eyes: reports: no symptoms reported Ears, Nose, Mouth & Throat: reports: no symptoms reported Cardiovascular: reports: no symptoms reported Respiratory: reports: no symptoms reported Gastrointestinal: denies: abdominal pain, diarrhea, nausea, vomiting Genitourinary: reports: no symptoms reported Musculoskeletal: reports: no symptoms reported Integumentary: reports: no symptoms reported Neurological: reports: other (word salad,myocarditis). denies: dizziness/ vertigo, headache/migraines Psychiatric: reports: no symptoms reported Endocrine: reports: no symptoms reported Hematologic/Lymphatic: reports: no symptoms reported Allergic/Immunologic: reports: no symptoms reported All Other Systems: Reviewed and Negative Past History - Adult - PAST MEDICAL HISTORY-ADULT Review of Records: reports: Old Records Reviewed, Nursing Assessment Review, Medications Reviewed, Social history reviewed & non-contributory. Major Childhood Illnesses: reports: denies history Cardiovascular: reports: hyperlipidemia Respiratory: reports: COPD Gastrointestinal: reports: denies history Obstetrical/Gynecological: reports: denies history Genitourinary: reports: denies history Musculoskeletal: reports: arthritis, chronic pain, intervertebral disc disease, neck/back injury, other fractures, orthopedic injury, osteoporosis, spinal fracture Neurological: reports: denies history Endocrine/Immune: reports: thyroid disorder Other Conditions: reports: denies history - PRIOR SURGERIES/PROCEDURES Surgical/Procedure History: reports: bowel surgery, orthopedic (extremity), back /neck - IMMUNIZATION STATUS Childhood Immunizations: See Nurse Assessment Flu Vaccine: See Nurse Assessment - FAMILY HISTORY Family History: reviewed, not pertinent Physical Exam-General - CONSTITUTIONAL General Appearance: severe distress. negative: appears well, alert - EYES Eyes: other (midpoint 3mm minimal reactive) - HEAD, EARS, NOSE, MOUTH & THROAT HENMT: normal ENT inspection, TMs normal - NECK Neck: supple, normal inspection - RESPIRATORY Respiratory: chest non-tender. negative: lungs clear - CARDIOVASCULAR Cardiovascular: systolic murmur - GASTROINTESTINAL (ABDOMEN) Abdominal Exam: soft - MUSCULOSKELETAL Extremity: non-tender, other (left greater toe amputation) - SKIN Integumentary: normal color Progress - PLAN OF CARE/RESULTS Progress/Plan/Lab Results: Orders Category Date Time Status Admit - [facility] Routine AdmDCTranf 05/12/17 03:07 Ordered Cardiac Monitoring DIRECTED Care 05/11/17 19:31 Completed Finger Stick Blood Sugar (ED) DIRECTED Care 05/11/17 19:31 Completed Neurological Check Q4H Care 05/12/17 03:07 Active Nursing- MD Consult Request ROUTINE Care 05/11/17 23:20 Completed Old records/chart to unit .From other facility Care 05/11/17 23:14 Inactive Oxygen Therapy- ED Nursing DIRECTED Care 05/11/17 19:31 Completed Saline Loc NOW Care 05/11/17 19:31 Completed Vital Signs Order ORDERED Care 05/12/17 03:07 Completed Z-Document. for Tele Applied ORDERED Care 05/12/17 03:07 Completed MD [Physician/Provider Consults] Routine Cons 05/12/17 06:00 Ordered CHEST-PORTABLE [RAD] Stat Exams 05/11/17 19:31 Completed HEAD W/O CONTRAST [CT] Stat Exams 05/11/17 20:04 Completed ABG [RESP] Routine Lab 05/11/17 19:58 Completed ABG [RESP] Routine Lab 05/12/17 06:00 Completed ALCOHOL BLOOD Stat Lab 05/11/17 19:55 Completed BASIC METABOLIC PANEL [CHEM] Routine Lab 05/12/17 05:50 Completed BLOOD CULTURE [BLDCUL] Stat Lab 05/11/17 19:50 Completed BNP [PRO B-NATRIURETIC PEPTIDE] Stat Lab 05/11/17 19:55 Completed CBC WITH ELECTRONIC DIFF [HEME] Stat Lab 05/11/17 19:55 Completed CBC WITH NO DIFF [HEME] Routine Lab 05/12/17 05:50 Completed CK PROFILE [SP CHEM] Stat Lab 05/11/17 19:55 Completed COMPREHENSIVE METABOLIC PANEL [CHEM] Routine Lab 05/12/17 05:50 Completed COMPREHENSIVE METABOLIC PANEL [CHEM] Stat Lab 05/11/17 19:55 Completed PROTIME WITH INR [COAG] Stat Lab 05/11/17 19:55 Completed PTT [COAG] Stat Lab 05/11/17 19:55 Completed TROPONIN T Stat Lab 05/11/17 19:55 Completed URINALYSIS W/POSS RFLX CULT-1 [URINALYSIS] Stat Lab 05/11/17 20:53 Completed URINE DRUG SCREEN Stat Lab 05/11/17 20:53 Completed 0.9% Sodium Chloride Inj [Ns] 1,000 ml Med 05/12/17 03:07 Discontinued IV 125 mls/hr 0.9% Sodium Chloride Inj [Ns] 1,000 ml Med 05/11/17 20:27 Discontinued IV 999 mls/hr 0.9% Sodium Chloride Inj [Ns] 1,000 ml Med 05/11/17 23:12 Discontinued IV 999 mls/hr 0.9% Sodium Chloride Inj [Ns] 250 ml Med 05/11/17 23:15 Discontinued Phenylephrine [Ken-Synephrine] 50 mg IV As Directed Enoxaparin [Lovenox] Med 05/12/17 03:07 Discontinued 40 mg SUBQ Q24H Esomeprazole [Nexium] Med 05/12/17 03:07 Discontinued 40 mg IV Q24H Levalbuterol Neb [Xopenex Neb] Med 05/12/17 04:00 Discontinued 1.25 mg INH RTQ6H Levofloxacin 750 mg/D5w [Levaquin 750 mg/D5w] Med 05/11/17 23:15 Discontinued 750 mg in 150 ml IV Q24H Pharmacy Order [Vancomycin IV Per Pharmacy] Med 05/11/17 23:15 Discontinued 1 each MISC DIRECTED Piperacil/Tazobact 3.375 gm/Ns [Zosyn 3.375 gm/Ns] Med 05/11/17 23:15 Discontinued 3.375 gm in 50 ml IV Q6H Sodium Chloride 0.9% Med 05/12/17 03:07 Discontinued 5 ml INJ DIRECTED Sodium Chloride 0.9% Neb [Ns Neb] Med 05/12/17 03:07 Discontinued 5 ml INH DIRECTED Vancomycin 1,800 mg Med 05/11/17 23:00 Discontinued 0.9% Sodium Chloride Inj [Ns] 250 ml IV NOW Aerosol Treatments Routine Oth 05/12/17 03:07 Completed Aerosol Treatments Stat Oth 05/12/17 03:07 Completed BIPAP Urgent Oth 05/11/17 23:11 Active Telemetry [OM.EQ] Routine Oth 05/12/17 03:07 Active EKG [EKG] Stat Ther 05/11/17 19:31 Draft Transfer/Admit Order [TRANSFER] Routine Transfer 05/11/17 23:15 Completed Result Diagrams: 05/14/17 04:10 05/14/17 04:10 - XRAY 1 XRAY Study: Chest Impression: Normal XRAY Interpretation: Nonspecific findings-Michael Haddad believes CHF - CONSULTS/PCP/HOSPITALIST Notification #1 *Consult/PCP/Hospitalist*: Time Discussed: 22:21 Reason/Comments: Admit Consult Disposition: Admit (Admit Accepted) Departure - Departure Date of Disposition Decision: 05/11/17 Time of Disposition Decision: 22:17 DIAGNOSIS: Septicemia Disposition: ADMITTED INPATIENT 09 Certified Medical Emergency: Emergent Condition: Good - Critical Care Note This patient required my direct & personal management of CC.: No This chart was documented by the indicated scribe, (Valentina Burton Scribe) and accurately reflects the services I performed and decisions made by me, Bernard Haddad MD, as attested by the provider's signature.
== END 2017-05-14 18:26 | disposition short-term general hospital (02) ==
LOC: ED 19:12 → ICU 05-12 02:01 → SUATTDRO 05-12 02:01
PROVIDERS: ADMIT Internal Medicine; ATTEND Internal Medicine